=== PATIENT | female | born 1945 | race Hispanic/Latino ===

== ENCOUNTER 2016-07-29 07:11 | Inpatient (IN) | payer MEDICARE ==
--- NOTE | 2016-07-29 08:20 | XRay Report ---
CHEST XRAY, 2 VIEWS: History: Shortness of breath. Findings: There is mild diffuse interstitial coarsening. The lungs are otherwise clear but hyperexpanded. The pleural spaces are clear. The cardiac silhouette and pulmonary vasculature are within normal limits for technique. IMPRESSION: Changes consistent with COPD. No evidence for an acute process.
[2016-07-29 08:53] LABS: Anion Gap 22 mmol/L; Blood Urea Nitrogen 9 mg/dL (7-17); Calcium 9.1 mg/dL (8.4-10.2); Carbon Dioxide 25 mmol/L (22-30); Chloride 97.9 mmol/L (98-107); Glucose 115 mg/dL (65-100); Potassium 3.4 mmol/L (3.6-5.0); Sodium 141 mmol/L (137-145)
[2016-07-29] MEDS ORDERED: NACL 0.9% 1000 ML 1,000 ML IV ONE (09:08)
[2016-07-29] MEDS ORDERED: MAGNESIUM SULFATE 2GM/50ML 50 ML IV ONE (09:08)
[2016-07-29] MEDS ORDERED: ATROVENT IH ONE (09:08)
[2016-07-29] MEDS ORDERED: PROVENTIL IH ONE (09:08)
--- NOTE | 2016-07-29 09:10 | Emergency Department Report ---
ED Shortness of Breath HPI - General Chief Complaint: Upper Respiratory Infection Stated Complaint: AMANDA Time Seen by Provider: 07/29/16 08:52 Source: patient, EMS (ems notes not available at time of chart dictation), RN notes reviewed, old records reviewed Mode of arrival: Stretcher Limitations: Physical Limitation - History of Present Illness Initial Comments: This is a 71-year-old female, whom I have evaluated in the past. Primary care Dr.: Ernie Pulmonology: [facility] : Dr Ramires Past medical history includes hypertension, COPD, hypothyroidism, had a history of perforated ulcer over the summer. She presents to the ER with cough, shortness of breath, wheezing, mucus production, generalized weakness. Her symptoms are constant, and worsening over the past few days. They worse with physical exertion, and decreased with rest. There is no leg pain. There is no leg swelling. No recent trips greater than 4 hours. No recent hospitalizations. patient reports this feels similar to prior episodes of COPD. She reports feeling very weak, and orthopneic. MD Complaint: shortness of breath, cough, chest pain (she admits to mild chest pressure, which developed after her cough.) -: Gradual Consistency: constant Improves With: oxygen, rest, bronchodilators, upright position, medication Worsens With: lying flat, exertion Known History Of: COPD Context: recent URI Associated Symptoms: chest pain, cough, orhopnia - Related Data Home Medications Medication Instructions Recorded Confirmed Last Taken Amlodipine Besylate [Amlodipine 10 mg PO QAM 07/29/16 07/29/16 07/28/16 Besylate] LORazepam [LORazepam] 2 mg PO QHS PRN 07/29/16 07/29/16 07/29/16 Levothyroxine [Synthroid] 100 mcg PO QAM 07/29/16 07/29/16 07/28/16 Pantoprazole Sodium [Protonix] 40 mg PO QAM 07/29/16 07/29/16 07/28/16 Simvastatin [Simvastatin] 20 mg PO QHS 07/29/16 07/29/16 Unknown Previous Rx's Medication Instructions Recorded Last Taken Type Pantoprazole [Protonix TAB] 40 mg PO QDAY #30 tablet 02/23/16 07/29/16 Rx Allergies Allergy/AdvReac Type Severity Reaction Status Date / Time No Known Allergies Allergy Verified 02/04/16 12:01 ED Review of Systems ROS: Stated complaint: AMANDA Other details as noted in HPI Constitutional: malaise. denies: fever Eyes: denies: eye discharge ENT: denies: epistaxis Respiratory: cough, shortness of breath, SOB with exertion, SOB at rest, wheezing Cardiovascular: dyspnea on exertion Gastrointestinal: denies: abdominal pain Genitourinary: as per HPI Musculoskeletal: as per HPI Skin: as per HPI Neurological: weakness Psychiatric: anxiety ED Past Medical Hx - Past Medical History Previous Medical History?: Yes Hx Hypertension: Yes Hx Heart Attack/AMI: No Hx Congestive Heart Failure: No Hx Diabetes: No Hx Deep Vein Thrombosis: No Hx Pulmonary Embolism: No Hx GERD: Yes Hx Liver Disease: No Hx Renal Disease: No Hx Sickle Cell Disease: No Hx Arthritis: No Hx Kidney Stones: No Hx Asthma: No Hx COPD: Yes Hx Tuberculosis: No Hx HIV: No Additional medical history: Hypothyrodism, hx of ulcers. - Surgical History Past Surgical History?: Yes Hx Coronary Stent: No Hx Open Heart Surgery: No Hx Pacemaker: No Hx Internal Defibrillator: No Hx Cholecystectomy: Yes Hx Appendectomy: Yes Hx Breast Surgery: Yes Additional Surgical History: hysterectomy, L ear surgery - Social History Smoking Status: Former Smoker Substance Use Type: None - Medications Home Medications: Home Medications Medication Instructions Recorded Confirmed Last Taken Type Pantoprazole [Protonix TAB] 40 mg PO QDAY #30 tablet 02/23/16 07/29/16 07/29/16 Rx Amlodipine Besylate [Amlodipine 10 mg PO QAM 07/29/16 07/29/16 07/28/16 History Besylate] LORazepam [LORazepam] 2 mg PO QHS PRN 07/29/16 07/29/16 07/29/16 History Levothyroxine [Synthroid] 100 mcg PO QAM 07/29/16 07/29/16 07/28/16 History Pantoprazole Sodium [Protonix] 40 mg PO QAM 07/29/16 07/29/16 07/28/16 History Simvastatin [Simvastatin] 20 mg PO QHS 07/29/16 07/29/16 Unknown History ED Physical Exam - General Limitations: Physical Limitation General appearance: alert, in distress - Head Head exam: Present: atraumatic, normocephalic - Eye Eye exam: Present: normal appearance, EOMI. Absent: nystagmus - ENT ENT exam: Present: mucous membranes dry - Neck Neck exam: Present: normal inspection, full ROM. Absent: tenderness - Respiratory Respiratory exam: Present: respiratory distress, wheezes, rhonchi, accessory muscle use - Cardiovascular Cardiovascular Exam: Present: normal rhythm, tachycardia, normal heart sounds. Absent: bradycardia, systolic murmur, diastolic murmur, rubs, gallop - GI/Abdominal GI/Abdominal exam: Present: soft, normal bowel sounds. Absent: distended, tenderness, guarding, rebound, rigid, pulsatile mass - Extremities Exam Extremities exam: Present: normal inspection, full ROM, normal capillary refill. Absent: tenderness, pedal edema, joint swelling, calf tenderness - Back Exam Back exam: Present: normal inspection, full ROM. Absent: tenderness, CVA tenderness (R), CVA tenderness (L), muscle spasm, paraspinal tenderness, vertebral tenderness - Neurological Exam Neurological exam: Present: alert, oriented X3, other (Extraocular movements intact. Tongue midline. No facial droop. Facial sensation intact to light touch in the V1, V2, V3 distribution bilaterally. 5 and 5 strength in 4 extremities.. Sensation is intact to light touch in 4 extremities.). Absent: motor sensory deficit - Psychiatric Psychiatric exam: Present: anxious - Skin Skin exam: Present: warm, dry, intact, normal color. Absent: rash ED Course Vital Signs 07/29/16 07/29/16 07/29/16 07:33 07:35 07:47 Temperature 98.6 F 98.2 F Pulse Rate 102 H 91 H Pulse Rate [ Anterior Bilateral Throughout] Respiratory 28 H 32 H 28 H Rate Respiratory Rate [Anterior Bilateral Throughout] Blood Pressure 128/72 Blood Pressure 128/72 [Left] O2 Sat by Pulse 97 100 99 Oximetry 07/29/16 07/29/16 07/29/16 09:19 10:25 11:47 Temperature 98.3 F Pulse Rate 90 Pulse Rate [ 87 106 H Anterior Bilateral Throughout] Respiratory 22 Rate Respiratory 28 H 25 H Rate [Anterior Bilateral Throughout] Blood Pressure Blood Pressure 128/53 [Left] O2 Sat by Pulse 99 Oximetry 07/29/16 07/29/16 13:46 14:13 Temperature Pulse Rate Pulse Rate [ 88 102 H Anterior Bilateral Throughout] Respiratory Rate Respiratory 21 20 Rate [Anterior Bilateral Throughout] Blood Pressure Blood Pressure [Left] O2 Sat by Pulse 94 Oximetry - Reevaluation(s) Reevaluation #1: 07/29/16 10:29 Differential diagnosis: COPD, bronchitis, pneumonia, pulmonary embolus, acute coronary syndrome Assessment and plan: 71-year-old female with probable COPD exacerbation. Patient was treated aggressively with albuterol, Atrovent, steroids, magnesium and fluids. She is still wheezing, she is still short of breath. She has significant work of breathing. She will be admitted for further management. I doubt pulmonary embolus. Nevertheless, a CT scan is pending, and patient will remain in the ER pending results. Dr Diaz accepts patient to his service 07/29/16 15:02 Reevaluation #2: 07/29/16 15:02 CAT scan of the chest is negative. ED Medical Decision Making - Lab Data Result diagrams: 07/29/16 08:12 07/29/16 08:12 Vital Signs 07/29/16 07/29/16 07/29/16 07:33 07:47 09:19 Temperature 98.6 F 98.2 F Pulse Rate 102 H 91 H Pulse Rate [ 87 Anterior Bilateral Throughout] Respiratory 28 H 28 H Rate Respiratory 28 H Rate [Anterior Bilateral Throughout] Blood Pressure 128/72 Blood Pressure 128/72 [Left] O2 Sat by Pulse 97 99 Oximetry Lab Results 07/29/16 07/29/16 07/29/16 Range/Units 08:12 08:12 08:12 WBC 9.2 (4.5-11.0) K/mm3 RBC 4.57 (3.65-5.03) M/mm3 Hgb 14.8 H (10.1-14.3) gm/dl Hct 44.3 H (30.3-42.9) % MCV 97 (79-97) fl MCH 32 (28-32) pg MCHC 33 (30-34) % RDW 14.0 (13.2-15.2) % Plt Count 165 (140-440) K/mm3 Lymph % (Auto) 6.4 L (13.4-35.0) % [place] % (Auto) 8.2 H (0.0-7.3) % Eos % (Auto) 2.4 (0.0-4.3) % Baso % (Auto) 0.6 (0.0-1.8) % Lymph # 0.6 L (1.2-5.4) K/mm3 [place] # 0.8 (0.0-0.8) K/mm3 Eos # 0.2 (0.0-0.4) K/mm3 Baso # 0.1 (0.0-0.1) K/mm3 Seg Neutrophils % 82.4 H (40.0-70.0) % Seg Neutrophils # 7.6 (1.8-7.7) K/mm3 PT (12.2-14.9) Sec. INR (0.87-1.13) D-Dimer (0-234) ng/mlDDU Sodium 141 (137-145) mmol/L Potassium 3.4 L (3.6-5.0) mmol/L Chloride 97.9 L (98-107) mmol/L Carbon Dioxide 25 (22-30) mmol/L Anion Gap 22 mmol/L BUN 9 (7-17) mg/dL Creatinine 0.5 L (0.7-1.2) mg/dL Estimated GFR > 60 ml/min BUN/Creatinine Ratio 18.00 % Glucose 115 H (65-100) mg/dL Calcium 9.1 (8.4-10.2) mg/dL Troponin T < 0.010 (0.00-0.029) ng/mL NT-Pro-B Natriuret Pep 91.18 (0-900) pg/mL 07/29/16 Range/Units 09:17 WBC (4.5-11.0) K/mm3 RBC (3.65-5.03) M/mm3 Hgb (10.1-14.3) gm/dl Hct (30.3-42.9) % MCV (79-97) fl MCH (28-32) pg MCHC (30-34) % RDW (13.2-15.2) % Plt Count (140-440) K/mm3 Lymph % (Auto) (13.4-35.0) % [place] % (Auto) (0.0-7.3) % Eos % (Auto) (0.0-4.3) % Baso % (Auto) (0.0-1.8) % Lymph # (1.2-5.4) K/mm3 [place] # (0.0-0.8) K/mm3 Eos # (0.0-0.4) K/mm3 Baso # (0.0-0.1) K/mm3 Seg Neutrophils % (40.0-70.0) % Seg Neutrophils # (1.8-7.7) K/mm3 PT 12.7 (12.2-14.9) Sec. INR 0.96 (0.87-1.13) D-Dimer 234.81 H (0-234) ng/mlDDU Sodium (137-145) mmol/L Potassium (3.6-5.0) mmol/L Chloride (98-107) mmol/L Carbon Dioxide (22-30) mmol/L Anion Gap mmol/L BUN (7-17) mg/dL Creatinine (0.7-1.2) mg/dL Estimated GFR ml/min BUN/Creatinine Ratio % Glucose (65-100) mg/dL Calcium (8.4-10.2) mg/dL Troponin T (0.00-0.029) ng/mL NT-Pro-B Natriuret Pep (0-900) pg/mL - EKG Data 07/29/16 10:31 normal sinus, rbbb, motion atrifcat, qtc prolonged, not c/w stemi appears unchanged from prior 02/05/2016 - Radiology Data Radiology results: report reviewed, image reviewed xr chest shows copd no acute findings CAT scan of the chest negative for pulmonary embolus Critical care attestation.: If time is entered above; I have spent that time in minutes in the direct care of this critically ill patient, excluding procedure time. ED Disposition Clinical Impression: Acute respiratory failure, COPD (chronic obstructive pulmonary disease) Disposition: OP ADMITTED IP TO THIS HOSP Is pt being admited?: Yes Does the pt Need Aspirin: Yes Condition: Fair
[2016-07-29 09:19] LABS: Basophils % (Auto) 0.6 % (0.0-1.8); Eosinophils % (Auto) 2.4 % (0.0-4.3); Hematocrit 44.3 % (30.3-42.9); Hemoglobin 14.8 gm/dl (10.1-14.3); Mean Corpuscular HGB Conc 33 % (30-34); Mean Corpuscular Hemoglobin 32 pg (28-32); Mean Corpuscular Volume 97 fl (79-97); Platelet Count 165 K/mm3 (140-440); Red Blood Count 4.57 M/mm3 (3.65-5.03); White Blood Count 9.2 K/mm3 (4.5-11.0)
[2016-07-29 09:41] LABS: INR 0.96 (0.87-1.13)
[2016-07-29] MEDS ORDERED: BABY ASPIRIN PO ONE (10:33)
--- NOTE | 2016-07-29 10:34 | Admit Criteria Form ---
Admission Criteria Documentation: COPD Clinical Indications for Admission to Inpatient Care (Place 'X' for any and all applicable criteria): Admission is indicated for ANY ONE of the following (1)(2)(3): [ ]I. Acute exacerbation by high-risk comorbidity (e.g., pneumonia, dysrhythmia, heart failure, pleural effusion, pneumothorax) or severe underlying COPD (e.g., steroid dependent) [X ]II. Inpatient admission required rather than observation care (see Chronic Obstructive Pulmonary Disease: Observation Care) because of ANY ONE of the following: [X ]a) New or pre-existing signs or symptoms of COPD (eg, dyspnea or Tachypnea at rest or with minimal activity) that persist despite outpatient and observation care treatment [ ]b) New-onset hypoxemia (room air SaO2 less than 90%, PO2 less than 60 mm Hg (8.0 kPa)) that persists despite outpatient and observation care treatment [ ]c) Worsening of pre-existing hypoxemia (eg, new or increased requirement for supplemental oxygen to maintain oxygenation at baseline level) that persists despite outpatient and observation care treatment, with oxygen treatment needs performable only in acute inpatient setting [ ]d) Hypercarbia (PCO2 greater than 40 mm Hg (5.3 kPa))-induced respiratory acidosis (pH less than 7.35) that persists despite outpatient and observation care treatment [ ]e) Supplemental oxygen or respiratory treatments for over 24 hours that are performable only in acute inpatient setting [ ]f) Chest tube placement with active evacuation (e.g., suction, drainage) (5) [ ]g) Other condition, treatment or monitoring requiring inpatient admission [ ]III. Planned invasive surgical or diagnostic procedures requiring acute- care hospitalization [ ]IV. Acute respiratory failure (e.g., uncompensated hypercarbia, severe hypoxemia) [ ]V. Severe comorbid condition (e.g., severe steroid myopathy, acute vertebral fracture) that has acutely worsened pulmonary function [ ]. Confusion state, lethargy, obtundation, stupor or coma Extended stay beyond goal length of stay may be needed for (31)(32): [ ]a ) Respiratory Failure. [ ]b) Severe or persisting hypoxemia or hypercarbia [ ]c) Severe or persistent dyspnea [ ]d) Comorbidities (e.g. chronic heart failure, atrial fibrillation with rapid response, pneumonia) [ ]e) Malnutrition The original [facility] content created by [employer] [facility] has been revised. The portions of the content which have been revised are identified through the use of italic text or in bold, and [employer] [facility] has neither reviewed nor approved the modified material. All other unmodified content is copyright [facility]. Please see references footnoted in the original [facility] edition 2016 Admission Criteria Met: Yes
[2016-07-29] MEDS ORDERED: NACL ONE (10:40)
--- NOTE | 2016-07-29 11:03 | Cat Scan Report ---
CTA chest: Transverse images are obtained through the chest using pulmonary embolus protocol. Coronal and sagittal 2-D as well as a 3-D reformatted images are included. Comparison is made to prior examination of February 04, 2016. The pulmonary vessels as well as the cardiac chambers and thoracic aorta are well-opacified. No filling defects in the pulmonary vessels or cardiac chambers identified. The thoracic aorta is normal in size and contour. The right thyroid lobe is heterogeneous and enlarged. There is no hilar or mediastinal adenopathy. Central airways are patent. No pulmonary nodules, infiltrates, or effusions identified. The pleural surfaces are smooth. The above findings are unchanged compared to prior study. Impression: 1. No evidence of pulmonary embolus. 2. No significant pulmonary abnormalities. 3. Enlarged, heterogeneous right thyroid lobe.
--- NOTE | 2016-07-29 11:39 | History and Physical Report ---
History of Present Illness Chief complaint: sob History of present illness: 71F with pmh of COPD who presents with SOB, wheezing, cough, sputum production and progressive weakness for 4 days, this is consistent with her typical exacerbation with COPD. denies Fever, states that symptoms were gradual and did not occur acutely. Denies CP or pedal edema, complaining of congestion that did not clear despite using nebulizer and using humidifier Past History Past Medical History: GERD, hypertension, hyperlipidemia, other (COPD, hypothyroidism, malnutrition, tobacco abuse, Peptic ulcer disease) Past Surgical History: hysterectomy, hernia repair, Other (ex lap, cholecystectomy, ear repair x2, partical colectomy) Social history: smoking (former) Family history: hypertension Medications and Allergies Allergies Allergy/AdvReac Type Severity Reaction Status Date / Time No Known Allergies Allergy Verified 02/04/16 12:01 Home Medications Medication Instructions Recorded Confirmed Last Taken Type Pantoprazole [Protonix TAB] 40 mg PO QDAY #30 tablet 02/23/16 07/29/16 07/29/16 Rx Amlodipine Besylate [Amlodipine 10 mg PO QAM 07/29/16 07/29/16 07/28/16 History Besylate] LORazepam [LORazepam] 2 mg PO QHS PRN 07/29/16 07/29/16 07/29/16 History Levothyroxine [Synthroid] 100 mcg PO QAM 07/29/16 07/29/16 07/28/16 History Pantoprazole Sodium [Protonix] 40 mg PO QAM 07/29/16 07/29/16 07/28/16 History Simvastatin [Simvastatin] 20 mg PO QHS 07/29/16 07/29/16 Unknown History Review of Systems All systems: negative Constitutional: fatigue, weakness Cardiovascular: no chest pain Respiratory: cough, cough with sputum, shortness of breath, dyspnea on exertion , wheezing Exam - Constitutional Vitals: Temp Pulse Resp BP Pulse Ox 98.2 F 106 H 25 H 128/72 99 07/29/16 07:47 07/29/16 10:25 07/29/16 10:25 07/29/16 07:47 07/29/16 07:47 General appearance: Present: mild distress, well-nourished - EENT Eyes: Present: PERRL ENT: hearing intact, clear oral mucosa - Neck Neck: Present: supple, normal ROM - Respiratory Respiratory effort: normal Respiratory: bilateral: diminished, wheezing - Cardiovascular Heart Sounds: Present: S1 & S2. Absent: rub, click - Extremities Extremities: pulses symmetrical, No edema Peripheral Pulses: within normal limits - Abdominal General gastrointestinal: Present: soft, non-tender, non-distended, normal bowel sounds Female genitourinary: Present: normal - Integumentary Integumentary: Present: clear, warm, dry - Musculoskeletal Musculoskeletal: gait normal, strength equal bilaterally - Psychiatric Psychiatric: appropriate mood/affect, intact judgment & insight - Neurologic Neurologic: CNII-XII intact, moves all extremities Results - Labs CBC & Chem 7: 07/29/16 08:12 07/29/16 08:12 Labs: Laboratory Last Values WBC 9.2 K/mm3 (4.5-11.0) 07/29/16 08:12 RBC 4.57 M/mm3 (3.65-5.03) 07/29/16 08:12 Hgb 14.8 gm/dl (10.1-14.3) H 07/29/16 08:12 Hct 44.3 % (30.3-42.9) H 07/29/16 08:12 MCV 97 fl (79-97) 07/29/16 08:12 MCH 32 pg (28-32) 07/29/16 08:12 MCHC 33 % (30-34) 07/29/16 08:12 RDW 14.0 % (13.2-15.2) 07/29/16 08:12 Plt Count 165 K/mm3 (140-440) 07/29/16 08:12 Lymph % (Auto) 6.4 % (13.4-35.0) L 07/29/16 08:12 [place] % (Auto) 8.2 % (0.0-7.3) H 07/29/16 08:12 Eos % (Auto) 2.4 % (0.0-4.3) 07/29/16 08:12 Baso % (Auto) 0.6 % (0.0-1.8) 07/29/16 08:12 Lymph # 0.6 K/mm3 (1.2-5.4) L 07/29/16 08:12 [place] # 0.8 K/mm3 (0.0-0.8) 07/29/16 08:12 Eos # 0.2 K/mm3 (0.0-0.4) 07/29/16 08:12 Baso # 0.1 K/mm3 (0.0-0.1) 07/29/16 08:12 Seg Neutrophils % 82.4 % (40.0-70.0) H 07/29/16 08:12 Seg Neutrophils # 7.6 K/mm3 (1.8-7.7) 07/29/16 08:12 PT 12.7 Sec. (12.2-14.9) 07/29/16 09:17 INR 0.96 (0.87-1.13) 07/29/16 09:17 D-Dimer 234.81 ng/mlDDU (0-234) H 07/29/16 09:17 Sodium 141 mmol/L (137-145) 07/29/16 08:12 Potassium 3.4 mmol/L (3.6-5.0) L 07/29/16 08:12 Chloride 97.9 mmol/L (98-107) L 07/29/16 08:12 Carbon Dioxide 25 mmol/L (22-30) 07/29/16 08:12 Anion Gap 22 mmol/L 07/29/16 08:12 BUN 9 mg/dL (7-17) 07/29/16 08:12 Creatinine 0.5 mg/dL (0.7-1.2) L 07/29/16 08:12 Estimated GFR > 60 ml/min 07/29/16 08:12 BUN/Creatinine Ratio 18.00 % 07/29/16 08:12 Glucose 115 mg/dL (65-100) H 07/29/16 08:12 Calcium 9.1 mg/dL (8.4-10.2) 07/29/16 08:12 Troponin T < 0.010 ng/mL (0.00-0.029) 07/29/16 08:12 NT-Pro-B Natriuret Pep 91.18 pg/mL (0-900) 07/29/16 08:12 - Imaging and Cardiology Chest x-ray: image reviewed (no acute process) CT scan - chest: image reviewed (no pulmonary embolus) Assessment and Plan Assessment and plan: 1. COPD exacerbation Steroids, nebs, abx, supplement oxygen and chest PT 2. Hypothyroidism continue synthroid 3. HTN continue home meds 4. PUD continue PPI 5. Malnutrition -asian studies professor consult -encourage improved diet
[2016-07-29] MEDS: LEVAQUIN 750MG/150ML 150 ML IV SCH (12:23)
[2016-07-29] MEDS ORDERED: MILK OF MAGNESIA PO PRN (13:00)
[2016-07-29] MEDS ORDERED: DULCOLAX PR PRN (13:00)
[2016-07-29] MEDS ORDERED: HABITROL TD PRN (13:00)
[2016-07-29] MEDS: DUONEB 0.5 MG-3 MG/3 ML SOLN IH SCH ×2 (13:52→20:11)
[2016-07-29] MEDS: TESSALON PERLES PO SCH ×2 (17:39→22:33)
[2016-07-29] MEDS: TYLENOL PO PRN (17:40)
[2016-07-29] MEDS: ZOCOR PO SCH (22:34)
[2016-07-30] MEDS: DUONEB 0.5 MG-3 MG/3 ML SOLN IH SCH ×4 (02:30→21:00)
[2016-07-30] MEDS: ATIVAN PO PRN ×2 (02:36→22:30)
[2016-07-30] MEDS: ROBITUSSIN AC PO PRN (02:36)
[2016-07-30] MEDS: TYLENOL PO PRN (02:56)
[2016-07-30] MEDS: SYNTHROID PO SCH (05:33)
[2016-07-30] MEDS: TESSALON PERLES PO SCH ×3 (05:34→22:19)
[2016-07-30 09:31] LABS: Blood Urea Nitrogen 10 mg/dL (7-17); Calcium 8.6 mg/dL (8.4-10.2); Carbon Dioxide 26 mmol/L (22-30); Glucose 146 mg/dL (65-100)
[2016-07-30 09:32] LABS: Anion Gap 16 mmol/L; Chloride 102.9 mmol/L (98-107); Potassium 3.7 mmol/L (3.6-5.0); Sodium 141 mmol/L (137-145)
--- NOTE | 2016-07-30 11:21 | Progress Note ---
Assessment and Plan Assessment and plan: 1. COPD exacerbation Steroids, nebs, abx, supplement oxygen and chest PT 2. Hypothyroidism continue synthroid, fup T4 3. HTN continue home meds 4. PUD continue PPI 5. Malnutrition -train station server consult -encourage improved diet History Interval history: cough, wheezing, and SOB is improved Hospitalist Physical - Physical exam Narrative exam: General: Patient appears well in no distress, very thin HEENT: MMM, EOMI cardiac: S1-S2 heard lungs: expiratory wheezing, noted abdomen: soft, nontender, nondistended bowel sounds positive extremities: no edema clubbing or cyanosis Skin: no rash or lesion Neuro: no focal deficit Psych: appropriate behavior and mood, cognition intact - Constitutional Vitals: Temp Pulse Resp BP Pulse Ox 98.3 F 104 H 16 117/65 95 07/30/16 08:00 07/30/16 09:03 07/30/16 09:03 07/30/16 08:00 07/30/16 08:00 General appearance: Present: mild distress, well-nourished Results - Labs CBC & Chem 7: 07/29/16 08:12 07/30/16 07:56 Labs: Laboratory Last Values WBC 9.2 K/mm3 (4.5-11.0) 07/29/16 08:12 RBC 4.57 M/mm3 (3.65-5.03) 07/29/16 08:12 Hgb 14.8 gm/dl (10.1-14.3) H 07/29/16 08:12 Hct 44.3 % (30.3-42.9) H 07/29/16 08:12 MCV 97 fl (79-97) 07/29/16 08:12 MCH 32 pg (28-32) 07/29/16 08:12 MCHC 33 % (30-34) 07/29/16 08:12 RDW 14.0 % (13.2-15.2) 07/29/16 08:12 Plt Count 165 K/mm3 (140-440) 07/29/16 08:12 Lymph % (Auto) 6.4 % (13.4-35.0) L 07/29/16 08:12 [place] % (Auto) 8.2 % (0.0-7.3) H 07/29/16 08:12 Eos % (Auto) 2.4 % (0.0-4.3) 07/29/16 08:12 Baso % (Auto) 0.6 % (0.0-1.8) 07/29/16 08:12 Lymph # 0.6 K/mm3 (1.2-5.4) L 07/29/16 08:12 [place] # 0.8 K/mm3 (0.0-0.8) 07/29/16 08:12 Eos # 0.2 K/mm3 (0.0-0.4) 07/29/16 08:12 Baso # 0.1 K/mm3 (0.0-0.1) 07/29/16 08:12 Seg Neutrophils % 82.4 % (40.0-70.0) H 07/29/16 08:12 Seg Neutrophils # 7.6 K/mm3 (1.8-7.7) 07/29/16 08:12 PT 12.7 Sec. (12.2-14.9) 07/29/16 09:17 INR 0.96 (0.87-1.13) 07/29/16 09:17 D-Dimer 234.81 ng/mlDDU (0-234) H 07/29/16 09:17 Sodium 141 mmol/L (137-145) 07/30/16 07:56 Potassium 3.7 mmol/L (3.6-5.0) 07/30/16 07:56 Chloride 102.9 mmol/L (98-107) 07/30/16 07:56 Carbon Dioxide 26 mmol/L (22-30) 07/30/16 07:56 Anion Gap 16 mmol/L 07/30/16 07:56 BUN 10 mg/dL (7-17) 07/30/16 07:56 Creatinine 0.4 mg/dL (0.7-1.2) L 07/30/16 07:56 Estimated GFR > 60 ml/min 07/30/16 07:56 BUN/Creatinine Ratio 25.00 % 07/30/16 07:56 Glucose 146 mg/dL (65-100) H 07/30/16 07:56 Calcium 8.6 mg/dL (8.4-10.2) 07/30/16 07:56 Troponin T < 0.010 ng/mL (0.00-0.029) 07/29/16 08:12 NT-Pro-B Natriuret Pep 91.18 pg/mL (0-900) 07/29/16 08:12 TSH 0.016 mlU/mL (0.270-4.200) L 07/30/16 07:56
[2016-07-30] MEDS: PROTONIX PO SCH (12:25)
[2016-07-30] MEDS: LOVENOX SUB-Q SCH (12:25)
[2016-07-30] MEDS: NORVASC PO SCH (12:25)
[2016-07-30] MEDS: LEVAQUIN 750MG/150ML 150 ML IV SCH (13:00)
[2016-07-30] MEDS: PERCOCET 5/325 PO PRN ×2 (15:05→22:28)
[2016-07-30] MEDS ORDERED: NACL ONE (18:09)
[2016-07-30] MEDS: ZOFRAN IV PRN (18:39)
[2016-07-30] MEDS: ZOCOR PO SCH (22:19)
[2016-07-31] MEDS: DUONEB 0.5 MG-3 MG/3 ML SOLN IH SCH ×4 (02:53→20:34)
[2016-07-31] MEDS: PERCOCET 5/325 PO PRN ×2 (07:00→23:25)
[2016-07-31] MEDS: SYNTHROID PO SCH (07:00)
[2016-07-31] MEDS: TESSALON PERLES PO SCH ×3 (07:01→23:17)
[2016-07-31] MEDS: ZOFRAN IV PRN (10:04)
[2016-07-31] MEDS: PROTONIX PO SCH (10:07)
[2016-07-31] MEDS: NORVASC PO SCH (10:07)
[2016-07-31] MEDS: LOVENOX SUB-Q SCH (10:13)
--- NOTE | 2016-07-31 13:05 | Progress Note ---
Assessment and Plan Assessment and plan: COPD exacerbation - Steroids, nebs, abx, supplement oxygen and chest PT - Getting better Patient complains dysphagia - Neck CT was done pending the reading - Speech therapy evaluation - Barium swallow evaluation Hypothyroidism - continue synthroid, fup T4 HTN - continue home meds PUD - continue PPI Malnutrition -patient access representative consult -encourage improved diet Disposition Plan: continue inpatient care History Interval history: Patient said shortness of breath is getting better. She complained of dysphagia and nausea and vomiting. Hospitalist Physical - Physical exam Narrative exam: Not in cardiopulmonary distress. The patient appeared well nourished and normally developed. Vital signs as documented. Head exam is unremarkable. No scleral icterus . Neck is without jugular venous distension, thyromegaly, or carotid bruits. Lungs are clear to auscultation. Cardiac exam reveals regular rate and Rhythm. First and second heart sounds normal. No murmurs, rubs or gallops. Abdominal exam reveals normal bowel sounds, no masses, no organomegaly and no aortic enlargement. Extremities are nonedematous and both femoral and pedal pulses are normal. 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 No focal weakness. - Constitutional Vitals: Temp Pulse Resp BP Pulse Ox 97.6 F 80 18 117/59 96 07/31/16 07:37 07/31/16 10:07 07/31/16 08:00 07/31/16 10:07 07/31/16 08:34 General appearance: Present: mild distress, well-nourished Results - Labs CBC & Chem 7: 07/29/16 08:12 07/30/16 07:56 Labs: Laboratory Last Values WBC 9.2 K/mm3 (4.5-11.0) 07/29/16 08:12 RBC 4.57 M/mm3 (3.65-5.03) 07/29/16 08:12 Hgb 14.8 gm/dl (10.1-14.3) H 07/29/16 08:12 Hct 44.3 % (30.3-42.9) H 07/29/16 08:12 MCV 97 fl (79-97) 07/29/16 08:12 MCH 32 pg (28-32) 07/29/16 08:12 MCHC 33 % (30-34) 07/29/16 08:12 RDW 14.0 % (13.2-15.2) 07/29/16 08:12 Plt Count 165 K/mm3 (140-440) 07/29/16 08:12 Lymph % (Auto) 6.4 % (13.4-35.0) L 07/29/16 08:12 [place] % (Auto) 8.2 % (0.0-7.3) H 07/29/16 08:12 Eos % (Auto) 2.4 % (0.0-4.3) 07/29/16 08:12 Baso % (Auto) 0.6 % (0.0-1.8) 07/29/16 08:12 Lymph # 0.6 K/mm3 (1.2-5.4) L 07/29/16 08:12 [place] # 0.8 K/mm3 (0.0-0.8) 07/29/16 08:12 Eos # 0.2 K/mm3 (0.0-0.4) 07/29/16 08:12 Baso # 0.1 K/mm3 (0.0-0.1) 07/29/16 08:12 Seg Neutrophils % 82.4 % (40.0-70.0) H 07/29/16 08:12 Seg Neutrophils # 7.6 K/mm3 (1.8-7.7) 07/29/16 08:12 PT 12.7 Sec. (12.2-14.9) 07/29/16 09:17 INR 0.96 (0.87-1.13) 07/29/16 09:17 D-Dimer 234.81 ng/mlDDU (0-234) H 07/29/16 09:17 Sodium 141 mmol/L (137-145) 07/30/16 07:56 Potassium 3.7 mmol/L (3.6-5.0) 07/30/16 07:56 Chloride 102.9 mmol/L (98-107) 07/30/16 07:56 Carbon Dioxide 26 mmol/L (22-30) 07/30/16 07:56 Anion Gap 16 mmol/L 07/30/16 07:56 BUN 10 mg/dL (7-17) 07/30/16 07:56 Creatinine 0.4 mg/dL (0.7-1.2) L 07/30/16 07:56 Estimated GFR > 60 ml/min 07/30/16 07:56 BUN/Creatinine Ratio 25.00 % 07/30/16 07:56 Glucose 146 mg/dL (65-100) H 07/30/16 07:56 Calcium 8.6 mg/dL (8.4-10.2) 07/30/16 07:56 Troponin T < 0.010 ng/mL (0.00-0.029) 07/29/16 08:12 NT-Pro-B Natriuret Pep 91.18 pg/mL (0-900) 07/29/16 08:12 TSH 0.016 mlU/mL (0.270-4.200) L 07/30/16 07:56 Thyroxine (T4) 8.6 ug/dL (4.0-12.0) 07/30/16 07:56
[2016-07-31] MEDS: LEVAQUIN 750MG/150ML 150 ML IV SCH (15:02)
[2016-07-31] MEDS: ZOCOR PO SCH (23:16)
[2016-08-01] MEDS: DUONEB 0.5 MG-3 MG/3 ML SOLN IH SCH ×4 (03:21→20:12)
[2016-08-01] MEDS: SYNTHROID PO SCH (05:23)
[2016-08-01] MEDS: TESSALON PERLES PO SCH ×3 (05:24→21:06)
[2016-08-01] MEDS: ROBITUSSIN AC PO PRN ×2 (05:30→14:50)
[2016-08-01] MEDS: PERCOCET 5/325 PO PRN ×3 (08:00→21:06)
--- NOTE | 2016-08-01 08:27 | Gastroenterology Consultation ---
History of Present Illness - Reason for Consult Consult date: 08/01/16 difficulty swallowing - History of Present Illness Ms Spaulding is a 71 yo female with h/o COPD, GERD, multiple prior abdominal surgeries who presents with COPD exacerbation. She reports improvement in breathing since admission. However, she has had coughing spells when swallowing liquids and solids as soon as initiating swallow. She has had chronic issues of of similar symptoms with swallowing, but this has been worse for the past 1 week. She has reflux sx's, and reports having previous EGD's over 2 years ago with "stretching" of esophagus. She has chronic abd pain since her surgeries which is unchanged. Denies NSAIDs, GI bleeding, or change in bowel habits. Past History Past Medical History: GERD, hypertension, hyperlipidemia, other (COPD, hypothyroidism, malnutrition, tobacco abuse, Peptic ulcer disease) Past Surgical History: hysterectomy, hernia repair, Other (ex lap, cholecystectomy, ear repair x2, partical colectomy) Social history: smoking (former) Family history: hypertension Medications and Allergies Allergies Allergy/AdvReac Type Severity Reaction Status Date / Time No Known Allergies Allergy Verified 02/04/16 12:01 Home Medications Medication Instructions Recorded Confirmed Last Taken Type Pantoprazole [Protonix TAB] 40 mg PO QDAY #30 tablet 02/23/16 07/29/16 07/29/16 Rx Amlodipine Besylate [Amlodipine 10 mg PO QAM 07/29/16 07/29/16 07/28/16 History Besylate] LORazepam [LORazepam] 2 mg PO QHS PRN 07/29/16 07/29/16 07/29/16 History Levothyroxine [Synthroid] 100 mcg PO QAM 07/29/16 07/29/16 07/28/16 History Pantoprazole Sodium [Protonix] 40 mg PO QAM 07/29/16 07/29/16 07/28/16 History Simvastatin [Simvastatin] 20 mg PO QHS 07/29/16 07/29/16 Unknown History Active Meds: Active Medications Acetaminophen (Tylenol) 650 mg PO Q4H PRN PRN Reason: Pain MILD(1-3)/Fever >100.5/GARNER Last Admin: 07/30/16 02:56 Dose: 650 mg Albuterol/Ipratropium (Duoneb 0.5 Mg-3 Mg/3 Ml Soln) 1 ampul IH Q6HRT [facility] Last Admin: 08/01/16 08:09 Dose: 1 ampul Amlodipine Besylate (Norvasc) 10 mg PO QAM [facility] Last Admin: 07/31/16 10:07 Dose: 10 mg Benzonatate (Tessalon Perles) 100 mg PO Q8HR [facility] Last Admin: 08/01/16 05:24 Dose: 100 mg Bisacodyl (Dulcolax) 10 mg VA QDAY PRN PRN Reason: Constipation unrelieved by MOM Enoxaparin Sodium (Lovenox) 40 mg SUB-Q QDAY [facility] Last Admin: 07/31/16 10:13 Dose: 40 mg Levofloxacin/Dextrose (Levaquin 750mg/150ml) 150 mls @ 100 mls/hr IV Q24H [facility] Last Admin: 07/31/16 15:02 Dose: 100 mls/hr Levothyroxine Sodium (Synthroid) 100 mcg PO DAILY@0600 [facility] Last Admin: 08/01/16 05:23 Dose: 100 mcg Lorazepam (Ativan) 2 mg PO QHS PRN PRN Reason: Sleep Last Admin: 07/30/16 22:30 Dose: 2 mg Magnesium Hydroxide (Milk Of Magnesia) 30 ml PO Q4H PRN PRN Reason: Constipation Methylprednisolone Sodium Succinate (Solu-Medrol) 40 mg IV Q8HR [facility] Last Admin: 08/01/16 05:23 Dose: 40 mg Ondansetron HCl (Zofran) 4 mg IV Q8H PRN PRN Reason: N/V unrelieved by Reglan Last Admin: 07/31/16 10:04 Dose: 4 mg Oxycodone/Acetaminophen (Percocet 5/325) 2 tab PO Q6H PRN PRN Reason: Pain, Moderate (4-6) Last Admin: 08/01/16 08:00 Dose: 2 tab Pantoprazole Sodium (Protonix) 40 mg PO QDAY [facility] Last Admin: 07/31/16 10:07 Dose: 40 mg Pseudoephedrine/Acetam/Chlorphenir (Robitussin Ac) 10 ml PO Q4H PRN PRN Reason: Cough Last Admin: 08/01/16 05:30 Dose: 10 ml Simvastatin (Zocor) 20 mg PO QHS [facility] Last Admin: 07/31/16 23:16 Dose: 20 mg Review of Systems - Review of Systems All systems: negative Constitutional: fatigue, weakness Cardiovascular: shortness of breath Exam - Exam Narrative Exam: Gen: NAD, resting comfortably Head: nc/at Ears: external ear canals appear normal Neck: no JVD/LAD Mouth: mmm Lungs: non-labored, + wheezing Abd: soft, mild right sided ttp, no rebound/guarding, nd, +bs Ext: no edema Neuro: oriented x 3 Psych: appropriate mood and affect - Constitutional Vital Signs: Temp Pulse Resp BP Pulse Ox 97.8 F 96 H 18 131/65 94 08/01/16 01:45 08/01/16 08:11 08/01/16 08:11 08/01/16 01:45 08/01/16 01:45 - Labs CBC & Chem 7: 07/29/16 08:12 07/30/16 07:56 Assessment and Plan 1. Difficulty swallowing - symptoms suggestive of oropharyngeal dysphagia given immediate coughing spells following swallowing of liquids and solids. She does report h/o reflux and prior esophageal dilatation over 2 years ago, however unclear if her symptoms are related to mechanical esophageal etiology. Recommend Barium swallow study/esophagram, and speech evaluation. Cont PPI. 2. COPD exacerbation - breathing improved, management per primary team
[2016-08-01 09:20] LABS: Hematocrit 40.8 % (30.3-42.9); Hemoglobin 13.6 gm/dl (10.1-14.3); Mean Corpuscular HGB Conc 33 % (30-34); Mean Corpuscular Hemoglobin 32 pg (28-32); Mean Corpuscular Volume 97 fl (79-97); Platelet Count 177 K/mm3 (140-440); Red Blood Count 4.21 M/mm3 (3.65-5.03); Red Cell Distribution Width 13.9 % (13.2-15.2); White Blood Count 8.6 K/mm3 (4.5-11.0)
[2016-08-01] MEDS: NORVASC PO SCH (09:28)
[2016-08-01] MEDS: PROTONIX PO SCH (09:28)
[2016-08-01 09:29] LABS: Anion Gap 16 mmol/L; Blood Urea Nitrogen 14 mg/dL (7-17); Calcium 8.7 mg/dL (8.4-10.2); Carbon Dioxide 30 mmol/L (22-30); Chloride 98.8 mmol/L (98-107); Glucose 136 mg/dL (65-100); Potassium 4.2 mmol/L (3.6-5.0); Sodium 141 mmol/L (137-145)
[2016-08-01] MEDS: LOVENOX SUB-Q SCH (09:29)
--- NOTE | 2016-08-01 10:03 | Progress Note ---
Assessment and Plan Assessment and plan: --Oropharyngeal dysphagia Status post modified barium swallow, speech recommended mechanical soft diet as tolerated GI following --Acute exacerbation of COPD/in terms slightly improved Continue oxygen titrated to O2 sats more than 90%, nebulizers IV steroids,Empiric antibiotics --Peptic ulcer disease; continue proton pump inhibitors And supportive care --Hypertension; moderate control Continue current antihypertensives and when necessary medications --History of hypothyroidism; on Synthroid Since TSH is very low, probably overcorrection, will hold Synthroid and closely monitor --Moderate malnutrition Dietary supplements and nutrition consult --DVT prophylaxis with Lovenox DC planning. Case management EI consult and recommendations noted and appreciated History Interval history: Patient seen and evaluated in her room this morning medical records reviewed Patient feels slightly better, barium swallow evaluated by speech therapist recommended mechanical soft diet as tolerated She denies nausea vomiting or abdominal pain Alert awake oriented 3 not in acute distress Vital signs reviewed, stable Hospitalist Physical - Constitutional Vitals: Temp Pulse Resp BP Pulse Ox 98.2 F 68 18 124/69 94 08/01/16 08:27 08/01/16 09:28 08/01/16 08:27 08/01/16 09:28 08/01/16 08:27 General appearance: Present: no acute distress, cachectic, disheveled - EENT Eyes: Present: PERRL, EOM intact - Neck Neck: Present: supple, normal ROM - Respiratory Respiratory effort: normal Respiratory: negative: rales, rhonchi, wheezing - Cardiovascular Rhythm: regular Heart Sounds: Present: S1 & S2 - Extremities Extremities: no ischemia, pulses intact, pulses symmetrical Peripheral Pulses: within normal limits - Abdominal General gastrointestinal: soft, non-tender, non-distended, normal bowel sounds - Integumentary Integumentary: Present: clear, warm - Psychiatric Psychiatric: appropriate mood/affect, cooperative - Neurologic Neurologic: CNII-XII intact, moves all extremities Results - Labs CBC & Chem 7: 08/01/16 08:47 08/01/16 08:54 Labs: Laboratory Last Values WBC 8.6 K/mm3 (4.5-11.0) 08/01/16 08:47 RBC 4.21 M/mm3 (3.65-5.03) 08/01/16 08:47 Hgb 13.6 gm/dl (10.1-14.3) 08/01/16 08:47 Hct 40.8 % (30.3-42.9) 08/01/16 08:47 MCV 97 fl (79-97) 08/01/16 08:47 MCH 32 pg (28-32) 08/01/16 08:47 MCHC 33 % (30-34) 08/01/16 08:47 RDW 13.9 % (13.2-15.2) 08/01/16 08:47 Plt Count 177 K/mm3 (140-440) 08/01/16 08:47 Lymph % (Auto) 6.4 % (13.4-35.0) L 07/29/16 08:12 [place] % (Auto) 8.2 % (0.0-7.3) H 07/29/16 08:12 Eos % (Auto) 2.4 % (0.0-4.3) 07/29/16 08:12 Baso % (Auto) 0.6 % (0.0-1.8) 07/29/16 08:12 Lymph # 0.6 K/mm3 (1.2-5.4) L 07/29/16 08:12 [place] # 0.8 K/mm3 (0.0-0.8) 07/29/16 08:12 Eos # 0.2 K/mm3 (0.0-0.4) 07/29/16 08:12 Baso # 0.1 K/mm3 (0.0-0.1) 07/29/16 08:12 Seg Neutrophils % Ophthalmology Technician 08/01/16 08:47 Seg Neutrophils # 7.6 K/mm3 (1.8-7.7) 07/29/16 08:12 PT 12.7 Sec. (12.2-14.9) 07/29/16 09:17 INR 0.96 (0.87-1.13) 07/29/16 09:17 D-Dimer 234.81 ng/mlDDU (0-234) H 07/29/16 09:17 Sodium 141 mmol/L (137-145) 08/01/16 08:54 Potassium 4.2 mmol/L (3.6-5.0) 08/01/16 08:54 Chloride 98.8 mmol/L (98-107) 08/01/16 08:54 Carbon Dioxide 30 mmol/L (22-30) 08/01/16 08:54 Anion Gap 16 mmol/L 08/01/16 08:54 BUN 14 mg/dL (7-17) 08/01/16 08:54 Creatinine 0.4 mg/dL (0.7-1.2) L 08/01/16 08:54 Estimated GFR > 60 ml/min 08/01/16 08:54 BUN/Creatinine Ratio 35.00 % 08/01/16 08:54 Glucose 136 mg/dL (65-100) H 08/01/16 08:54 Calcium 8.7 mg/dL (8.4-10.2) 08/01/16 08:54 Troponin T < 0.010 ng/mL (0.00-0.029) 07/29/16 08:12 NT-Pro-B Natriuret Pep 91.18 pg/mL (0-900) 07/29/16 08:12 TSH 0.016 mlU/mL (0.270-4.200) L 07/30/16 07:56 Thyroxine (T4) 8.6 ug/dL (4.0-12.0) 07/30/16 07:56
[2016-08-01 10:06] LABS: Basophils % (Manual) 0 % (0.0-1.8); Blastocytes % (Manual) 0 %; Eosinophils % (Manual) 0 % (0.0-4.3)
[2016-08-01 10:07] LABS: Anisocytosis Few; Diff Status Complete
--- NOTE | 2016-08-01 11:45 | Fluoroscopy Report ---
Modified barium swallow: The patient was given multiple consistencies of opaque material by speech therapy. Imaging of the patient in the sitting lateral projection show no evidence of penetration or aspiration.
[2016-08-01] MEDS: LEVAQUIN PO SCH (12:06)
[2016-08-01] MEDS: ZOFRAN IV PRN (12:10)
[2016-08-01] MEDS: ZOCOR PO SCH (21:06)
[2016-08-01] MEDS: ATIVAN PO PRN (21:06)
[2016-08-02] MEDS: SYNTHROID PO SCH (07:04)
[2016-08-02] MEDS: PERCOCET 5/325 PO PRN ×2 (07:04→15:20)
[2016-08-02] MEDS: TESSALON PERLES PO SCH ×3 (07:08→23:27)
[2016-08-02] MEDS: DUONEB 0.5 MG-3 MG/3 ML SOLN IH SCH ×3 (10:37→21:58)
[2016-08-02] MEDS: LEVAQUIN PO SCH (11:11)
[2016-08-02] MEDS: NORVASC PO SCH (11:11)
[2016-08-02] MEDS: PROTONIX PO SCH (11:12)
[2016-08-02] MEDS: LOVENOX SUB-Q SCH (11:12)
--- NOTE | 2016-08-02 14:47 | Gastroenterology Progress Note ---
<TJ ELY - Last Filed: 08/02/16 14:51> Assessment and Plan 1. Dysphagia -S/P MBS with no evidence of aspiration , patient also passed swallow eval. She reports she still has the sensation of "something sticking in my throat" -She reports these are similar symptoms she was having at the time of previous dilation several years ago. -She has been seen by [facility]RISTA and Dr. Richards in the past with multiple endoscopies finding pyloric channel and duodenal ulcers as well as erosive esophagitis and gastritis. She has been dilated several times in the past. She denies NSAID use. 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 No active ulcers were seen or stenosis. She is s/p hemicolectomy and CCY in 2014. 2. COPD exacerbation - breathing improved, management per primary team -NPO after MN for tentative EGD tommorrow. If EGD non-revealing may consider esophageal motility studies. Subjective Date of service: 08/02/16 Interval history: No acute changes overnight, S/P MBS, family at bedside. Objective - Constitutional Vitals: Temp Pulse Resp BP Pulse Ox 97.9 F 86 16 128/72 96 08/02/16 08:00 08/02/16 13:32 08/02/16 13:32 08/02/16 11:11 08/02/16 10:40 General appearance: no acute distress - EENT Eyes: EOM intact ENT: hearing intact - Neck Neck: supple - Respiratory Respiratory: bilateral: rhonchi, wheezing - Cardiovascular Rhythm: regular Heart Sounds: Present: S1 & S2 - Gastrointestinal General gastrointestinal: Present: soft, normal bowel sounds, other (midline scarring from previous surgery) - Integumentary Integumentary: Present: warm, dry - Labs CBC & Chem 7: 08/01/16 08:47 08/01/16 08:54 <TARI GARBER - Last Filed: 08/02/16 17:57> Assessment and Plan Pt seen and examined. Concerned that she needs repeat dilation, as she was last dilated 4 yrs ago. Complains of dysphagia to solids > liquids. Will plan on EGD tomorrow, with dilation possible. Subjective Date of service: 08/02/16 Objective - Constitutional Vitals: Temp Pulse Resp BP Pulse Ox 98.2 F 100 H 18 130/80 96 08/02/16 16:00 08/02/16 16:00 08/02/16 16:00 08/02/16 16:00 08/02/16 10:40 - Labs CBC & Chem 7: 08/01/16 08:47 08/01/16 08:54
--- NOTE | 2016-08-02 16:47 | Progress Note ---
Assessment and Plan Assessment and plan: --Oropharyngeal dysphagia GI evaluation noted and appreciated, possible EGD tomorrow Status post modified barium swallow, tolerating mechanical soft diet --Acute exacerbation of COPD/in terms slightly improved Continue oxygen titrated to O2 sats more than 90%, nebulizers IV steroids,Empiric antibiotics --Peptic ulcer disease; continue proton pump inhibitors And supportive care --Hypertension; moderate control Continue current antihypertensives and when necessary medications --History of hypothyroidism; on Synthroid Since TSH is very low, probably overcorrection, will hold Synthroid and closely monitor --Moderate malnutrition Dietary supplements and nutrition consult --DVT prophylaxis with Lovenox DC planning. Case management If EGD is negative and patient stable can be discharged home tomorrow Plan of care discussed with the patient family members and case management History Interval history: Reason seen and evaluated medical records reviewed Underwent modified barium swallow, speech recommended mechanical soft diet which patient tolerated GI evaluation noted and appreciated Recommend possible EGD tomorrow.. Alert awake oriented 3 not in acute distress Vital signs reviewed stable Hospitalist Physical - Constitutional Vitals: Temp Pulse Resp BP Pulse Ox 98.2 F 100 H 18 130/80 96 08/02/16 16:00 08/02/16 16:00 08/02/16 16:00 08/02/16 16:00 08/02/16 10:40 General appearance: Present: no acute distress, cachectic, disheveled - EENT Eyes: Present: PERRL, EOM intact - Neck Neck: Present: supple, normal ROM - Respiratory Respiratory effort: normal Respiratory: negative: rales, rhonchi, wheezing - Cardiovascular Rhythm: regular Heart Sounds: Present: S1 & S2 - Extremities Extremities: no ischemia, pulses intact, pulses symmetrical Peripheral Pulses: within normal limits - Abdominal General gastrointestinal: soft, non-tender, non-distended, normal bowel sounds - Integumentary Integumentary: Present: clear, warm - Psychiatric Psychiatric: appropriate mood/affect, cooperative - Neurologic Neurologic: CNII-XII intact, moves all extremities Results - Labs CBC & Chem 7: 08/01/16 08:47 08/01/16 08:54 Labs: Laboratory Last Values WBC 8.6 K/mm3 (4.5-11.0) 08/01/16 08:47 RBC 4.21 M/mm3 (3.65-5.03) 08/01/16 08:47 Hgb 13.6 gm/dl (10.1-14.3) 08/01/16 08:47 Hct 40.8 % (30.3-42.9) 08/01/16 08:47 MCV 97 fl (79-97) 08/01/16 08:47 MCH 32 pg (28-32) 08/01/16 08:47 MCHC 33 % (30-34) 08/01/16 08:47 RDW 13.9 % (13.2-15.2) 08/01/16 08:47 Plt Count 177 K/mm3 (140-440) 08/01/16 08:47 Lymph % (Auto) 6.4 % (13.4-35.0) L 07/29/16 08:12 [place] % (Auto) 8.2 % (0.0-7.3) H 07/29/16 08:12 Eos % (Auto) 2.4 % (0.0-4.3) 07/29/16 08:12 Baso % (Auto) 0.6 % (0.0-1.8) 07/29/16 08:12 Lymph # 0.6 K/mm3 (1.2-5.4) L 07/29/16 08:12 [place] # 0.8 K/mm3 (0.0-0.8) 07/29/16 08:12 Eos # 0.2 K/mm3 (0.0-0.4) 07/29/16 08:12 Baso # 0.1 K/mm3 (0.0-0.1) 07/29/16 08:12 Add Manual Diff Complete 08/01/16 08:47 Total Counted 100 08/01/16 08:47 Seg Neutrophils % [employer] 08/01/16 08:47 Seg Neuts % (Manual) 89.0 % (40.0-70.0) H 08/01/16 08:47 Band Neutrophils % 4.0 % 08/01/16 08:47 Lymphocytes % (Manual) 4.0 % (13.4-35.0) L 08/01/16 08:47 Reactive Lymphs % (Man) 0 % 08/01/16 08:47 Monocytes % (Manual) 3.0 % (0.0-7.3) 08/01/16 08:47 Eosinophils % (Manual) 0 % (0.0-4.3) 08/01/16 08:47 Basophils % (Manual) 0 % (0.0-1.8) 08/01/16 08:47 Metamyelocytes % 0 % 08/01/16 08:47 Myelocytes % 0 % 08/01/16 08:47 Promyelocytes % 0 % 08/01/16 08:47 Blast Cells % 0 % 08/01/16 08:47 Nucleated RBC % Not Reportable 08/01/16 08:47 Seg Neutrophils # 7.6 K/mm3 (1.8-7.7) 07/29/16 08:12 Seg Neutrophils # Man 7.7 K/mm3 (1.8-7.7) 08/01/16 08:47 Band Neutrophils # 0.3 K/mm3 08/01/16 08:47 Lymphocytes # (Manual) 0.3 K/mm3 (1.2-5.4) L 08/01/16 08:47 Abs React Lymphs (Man) 0.0 K/mm3 08/01/16 08:47 Monocytes # (Manual) 0.3 K/mm3 (0.0-0.8) 08/01/16 08:47 Eosinophils # (Manual) 0.0 K/mm3 (0.0-0.4) 08/01/16 08:47 Basophils # (Manual) 0.0 K/mm3 (0.0-0.1) 08/01/16 08:47 Metamyelocytes # 0.0 K/mm3 08/01/16 08:47 Myelocytes # 0.0 K/mm3 08/01/16 08:47 Promyelocytes # 0.0 K/mm3 08/01/16 08:47 Blast Cells # 0.0 K/mm3 08/01/16 08:47 WBC Morphology Not Reportable 08/01/16 08:47 Hypersegmented Neuts Not Reportable 08/01/16 08:47 Hyposegmented Neuts Not Reportable 08/01/16 08:47 Hypogranular Neuts Not Reportable 08/01/16 08:47 Smudge Cells Not Reportable 08/01/16 08:47 Toxic Granulation Not Reportable 08/01/16 08:47 Toxic Vacuolation Not Reportable 08/01/16 08:47 Dohle Bodies Not Reportable 08/01/16 08:47 Pelger-Huet Anomaly Not Reportable 08/01/16 08:47 Miya Rods Not Reportable 08/01/16 08:47 Platelet Estimate Not Reportable 08/01/16 08:47 Clumped Platelets Not Reportable 08/01/16 08:47 Plt Clumps, EDTA Not Reportable 08/01/16 08:47 Large Platelets Not Reportable 08/01/16 08:47 Giant Platelets Not Reportable 08/01/16 08:47 Platelet Satelliting Not Reportable 08/01/16 08:47 Plt Morphology Comment Not Reportable 08/01/16 08:47 RBC Morphology Not Reportable 08/01/16 08:47 Dimorphic RBCs Not Reportable 08/01/16 08:47 Polychromasia Not Reportable 08/01/16 08:47 Hypochromasia Not Reportable 08/01/16 08:47 Poikilocytosis Not Reportable 08/01/16 08:47 Anisocytosis Few 08/01/16 08:47 Microcytosis Not Reportable 08/01/16 08:47 Macrocytosis Not Reportable 08/01/16 08:47 Spherocytes Not Reportable 08/01/16 08:47 Pappenheimer Bodies Not Reportable 08/01/16 08:47 Sickle Cells Not Reportable 08/01/16 08:47 Target Cells Not Reportable 08/01/16 08:47 Tear Drop Cells Not Reportable 08/01/16 08:47 Ovalocytes Not Reportable 08/01/16 08:47 Helmet Cells Not Reportable 08/01/16 08:47 Wagoner-[place]ort Bodies Not Reportable 08/01/16 08:47 [place] Rings Not Reportable 08/01/16 08:47 [place] Cells Not Reportable 08/01/16 08:47 Bite Cells Not Reportable 08/01/16 08:47 Crenated Cell Not Reportable 08/01/16 08:47 Elliptocytes Not Reportable 08/01/16 08:47 Acanthocytes (Spur) Not Reportable 08/01/16 08:47 Rouleaux Not Reportable 08/01/16 08:47 Hemoglobin C Crystals Not Reportable 08/01/16 08:47 Schistocytes Not Reportable 08/01/16 08:47 Malaria parasites Not Reportable 08/01/16 08:47 Juliocesar Bodies Not Reportable 08/01/16 08:47 Hem Pathologist Commnt No 08/01/16 08:47 PT 12.7 Sec. (12.2-14.9) 07/29/16 09:17 INR 0.96 (0.87-1.13) 07/29/16 09:17 D-Dimer 234.81 ng/mlDDU (0-234) H 07/29/16 09:17 Sodium 141 mmol/L (137-145) 08/01/16 08:54 Potassium 4.2 mmol/L (3.6-5.0) 08/01/16 08:54 Chloride 98.8 mmol/L (98-107) 08/01/16 08:54 Carbon Dioxide 30 mmol/L (22-30) 08/01/16 08:54 Anion Gap 16 mmol/L 08/01/16 08:54 BUN 14 mg/dL (7-17) 08/01/16 08:54 Creatinine 0.4 mg/dL (0.7-1.2) L 08/01/16 08:54 Estimated GFR > 60 ml/min 08/01/16 08:54 BUN/Creatinine Ratio 35.00 % 08/01/16 08:54 Glucose 136 mg/dL (65-100) H 08/01/16 08:54 Calcium 8.7 mg/dL (8.4-10.2) 08/01/16 08:54 Troponin T < 0.010 ng/mL (0.00-0.029) 07/29/16 08:12 NT-Pro-B Natriuret Pep 91.18 pg/mL (0-900) 07/29/16 08:12 TSH 0.016 mlU/mL (0.270-4.200) L 07/30/16 07:56 Thyroxine (T4) 8.6 ug/dL (4.0-12.0) 07/30/16 07:56
[2016-08-02] MEDS: ATIVAN PO PRN (23:27)
[2016-08-02] MEDS: ZOCOR PO SCH (23:28)
[2016-08-02] MEDS: ZOFRAN IV PRN (23:28)
[2016-08-03 07:48] LABS: Basophils % (Auto) 0.1 % (0.0-1.8); Hematocrit 40.4 % (30.3-42.9); Hemoglobin 13.8 gm/dl (10.1-14.3); Mean Corpuscular HGB Conc 34 % (30-34); Mean Corpuscular Hemoglobin 33 pg (28-32); Mean Corpuscular Volume 97 fl (79-97); Platelet Count 194 K/mm3 (140-440); Red Blood Count 4.18 M/mm3 (3.65-5.03); Red Cell Distribution Width 13.1 % (13.2-15.2); White Blood Count 7.7 K/mm3 (4.5-11.0)
[2016-08-03 08:03] LABS: Anion Gap 15 mmol/L; Blood Urea Nitrogen 18 mg/dL (7-17); Calcium 8.2 mg/dL (8.4-10.2); Carbon Dioxide 31 mmol/L (22-30); Chloride 96.5 mmol/L (98-107); Glucose 130 mg/dL (65-100); Sodium 138 mmol/L (137-145)
--- NOTE | 2016-08-03 08:24 | Cat Scan Report ---
FINAL REPORT EXAM: CT NECK W CON HISTORY: thyroid mass, patient has sensation of choking TECHNIQUE: CT neck with IV contrast PRIORS: Comparison is dated February 04, 2016 FINDINGS: No evidence of for pharyngeal tonsillar enlargement no evidence of enlargement of the adenoids. No pathologically enlarged lymph nodes are identified in the neck The major salivary glands are within normal limits There is marked degenerative change at the cervical spine from C2-C3 through C5-C6. Small anterior osteophytes are noted. There reversal of the normal cervical lordosis. Proximal esophagus does not appear dilated. No focal inflammatory change seen. Major vascular structures are unremarkable. There is asymmetric enlargement of the thyroid with a large complex appearing and right thyroid mass measuring approximately 5.5 centimeters in length this results in some deviation of the trachea toward the left multiple additional thyroid nodules are noted. This appears similar to the prior exam of the comparison is limited due to lack of IV contrast on the previous study. IMPRESSION: Large mass within the right lobe of the thyroid with asymmetric enlargement. This results in some deviation of the trachea to the left. Degenerative change of the cervical spine as noted above with marginal osteophytes in reversal of the normal cervical lordosis
[2016-08-03] MEDS: TESSALON PERLES PO SCH (09:28)
[2016-08-03] MEDS: SYNTHROID PO SCH (09:28)
[2016-08-03] MEDS: DUONEB 0.5 MG-3 MG/3 ML SOLN IH SCH (10:17)
[2016-08-03] MEDS ORDERED: ROBINUL ONE (12:00)
[2016-08-03] MEDS ORDERED: XYLOCAINE MPF 2% ONE (12:00)
[2016-08-03] MEDS ORDERED: NACL 0.9% 1000 ML 1,000 ML IV SCH (12:00)
[2016-08-03] MEDS ORDERED: DIPRIVAN 10 MG/ML IV ONE ×2 (12:00)
--- NOTE | 2016-08-03 12:13 | Anesthesia Consultation ---
Anesthesia Consult and Med Hx Date of service: 08/03/16 - Airway Anesthetic Teeth Evaluation: Edentulous ROM Head & Neck: Adequate Mental/Hyoid Distance: Adequate Mallampati Class: Class I Intubation Access Assessment: Good - Pulmonary Exam CTA: Yes - Cardiac Exam Cardiac Exam: RRR - Pre-Operative Health Status ASA Pre-Surgery Classification: ASA4 Proposed Anesthetic Plan: MAC - Pulmonary Hx Smoking: Yes Hx Asthma: No SOB: Yes (with exertion) COPD: Yes Hx Pneumonia: Yes Hx Sleep Apnea: No - Cardiovascular System Hx Hypertension: Yes Hx Coronary Artery Disease: No Hx Heart Attack/AMI: No Hx Angina: No Hx Percutaneous Transluminal Coronary Angioplasty (PTCA): No Hx Pacemaker: No Hx Internal Defibrillator: No Hx Valvular Heart Disease: No Hx Heart Murmur: No Hx Peripheral Vascular Disease: No - Central Nervous System Hx Psychiatric Problems: No - Gastrointestinal Hx Ulcer: Yes Hx Gastroesophageal Reflux Disease: Yes (dysphagia) - Endocrine Hx Renal Disease: No Hx End Stage Renal Disease: No Hx Cirrhosis: No Hx Liver Disease: No Hx Thyroid Disease: Yes (hypothyroid, TSH very low with High T4, need to decrease synthroid) Hx Hypothyroidism: Yes Hx Hyperthyroidism: No - Hematic Hx Anemia: Yes Hx Sickle Cell Disease: No - Other Systems Hx Cancer: No
--- NOTE | 2016-08-03 12:13 | Anesthesia Day of Surgery ---
Anesthesia Day of Surgery - Day of Surgery Patient Examined: Yes Patient H&P Reviewed: Yes Patient is NPO: Yes
--- NOTE | 2016-08-03 12:27 | Operative Report ---
Operative Report Operative Report: Date of procedure: [08/03/2016] Procedure: Esophagogastroduodenoscopy with biopsies of the antrum for H. pylori. Esophageal dilation with 44 and 50 Malian Marquez dilator towards. Preprocedure diagnosis: Dysphagia to solid foods and liquid foods equally Post procedure diagnosis: Mild distal esophagitis. No apparent stricture of the esophagus endoscopically. Bile gastritis. Deformed and widely patent pyloric channel. Endoscopist: Dr. Wray Anesthesia: Monitored anesthesia care per anesthesia department Medications: [Propofol per anesthesia] Estimated blood loss: 0 After careful discussion of the nature and purpose of the procedure as well as details the technique risks benefits and alternatives consent was obtained. The patient was placed in the left lateral decubitus position and medicated per anesthesia. The tip of the [place] EQ 570 video scope was passed per orum under direct vision into the esophagus and advanced into the stomach and descending duodenum. The descending duodenum was normal. The duodenal bulb was dilated with a probable diverticulum present. The pyloric channel was deformed and widely patent. The scope was withdrawn into the stomach and the stomach then gently insufflated with air. The antrum revealed diffuse erythema but no erosions or ulcers. There was retained bile in the antrum and body. 3 biopsies were taken in the prepyloric antrum for H. pylori testing. The stomach was further insufflated and the scope was then retroflexed and partially withdrawn. The cardia, fundus, and body of the stomach were otherwise within normal limits and easily distensible.The scope was then withdrawn in the forward position. The esophagogastric junction was at [37 cm] . Air was mild inflammation at the Z line area. The Z line was slightly irregular. There was no stricture evident. The esophageal body was normal throughout. The dilation was performed with a Marquez 44 Malian dilator and 50 Malian dilator. No significant resistance was encountered. The procedure was was well tolerated and the patient was observed in recovery. Impressions: Minimal distal esophagitis. No obvious esophageal stricture. Status post empiric dilation. Bile reflux gastritis. Biopsies taken to exclude H. pylori. Widely patent and deformed pyloric channel. Plan: Await biopsies. Continue acid suppression therapy. Redilate when necessary. Progress diet as tolerated. May go home at your discretion from the GI standpoint. Electronically signed: Zi Wray MD
[2016-08-03 12:43] VITALS: BP 119/74
--- NOTE | 2016-08-03 12:52 | Discharge Summary ---
Providers - Providers Date of Admission: 07/29/16 11:43 Date of discharge: 08/03/16 Attending physician: MANJULA HAMMER 07/31/16 14:14 Consult to Physician [CONS] Routine Consulting Provider: ROCIO TREVIÑO Reason For Exam: dysphagia Place consult to:: [facility] Notified:: ANSWERING SERVICE Phone number called:: [phone] Was contact made?: Yes Time called:: 15:40 Comment:: COMPLETED ROMERO 07/29/16 11:46 Consult to Dietitian/Nutrition [CONS] Routine Physician Instructions: Reason For Exam: Reason for Consult: Malnutrition 07/30/16 18:05 Speech Therapy Evaluation and Treat [CONS] Routine Reason For Exam: dysphagia Primary care physician: TYSHAWN ESPINOZA Hospitalization Condition: Fair Disposition: DISCHARGED TO HOME OR SELFCARE Time spent for discharge: 33 min Core Measure Documentation - Palliative Care Palliative Care/ Comfort Measures: Not Applicable - Core Measures Any of the following diagnoses?: none Exam - Constitutional Vitals: Temp Pulse Resp BP Pulse Ox 97.4 F L 79 17 119/74 95 08/03/16 12:21 08/03/16 12:42 08/03/16 12:42 08/03/16 12:42 08/03/16 12:42 General appearance: Present: no acute distress, well-nourished - EENT Eyes: Present: PERRL, EOM intact - Neck Neck: Present: supple, normal ROM - Respiratory Respiratory effort: normal Respiratory: bilateral: diminished, negative: rales, rhonchi, wheezing - Cardiovascular Rhythm: regular Heart Sounds: Present: S1 & S2 - Extremities Extremities: no ischemia, pulses intact, pulses symmetrical Peripheral Pulses: within normal limits - Abdominal General gastrointestinal: Present: soft, non-tender, non-distended, normal bowel sounds - Integumentary Integumentary: Present: clear, warm - Musculoskeletal Musculoskeletal: strength equal bilaterally - Psychiatric Psychiatric: appropriate mood/affect, cooperative - Neurologic Neurologic: CNII-XII intact, moves all extremities Plan Activity: no restrictions Diet: advance as tolerated Follow up with: TYSHAWN ESPINOZA MD [Primary Care Provider] - 3-5 Days DELL DELUCA MD [Staff Physician] - 7 Days Prescriptions: Benzonatate [Tessalon Perles] 100 mg PO Q8HR #30 capsule Levofloxacin [Levaquin TAB] 500 mg PO DAILY #5 tablet Pantoprazole [Protonix TAB] 40 mg PO QDAY #30 tablet Prednisone [predniSONE 10 mg (6-Day Pack, 21 Tabs)] 10 mg PO .TAPER #1 tab.ds.pk
== END 2016-08-03 16:11 | disposition home or self-care (01) | DRG 191 ==
LOC: ED 07:11 → 3A 11:43
PROVIDERS: ADMIT Internal Medicine; ATTEND Internal Medicine
PROC: 0DB68ZX Excision of Stomach, Via Natural or Artificial Opening Endoscopic, Diagnostic (ICD-10-PCS; principal; 2016-08-03)
PROC: 0D758ZZ Dilation of Esophagus, Via Natural or Artificial Opening Endoscopic (ICD-10-PCS; 2016-08-03)
DX: J44.1 Chronic obstructive pulmonary disease with (acute) exacerbation (principal); Z68.1 Body mass index [BMI] 19.9 or less, adult; E44.0 Moderate protein-calorie malnutrition; E03.9 Hypothyroidism, unspecified; I10 Essential (primary) hypertension; K27.9 Peptic ulcer, site unspecified, unspecified as acute or chronic, without hemorrhage or perforation; R13.12 Dysphagia, oropharyngeal phase; K29.00 Acute gastritis without bleeding; K21.9 Gastro-esophageal reflux disease without esophagitis; E78.5 Hyperlipidemia, unspecified; Z90.49 Acquired absence of other specified parts of digestive tract; Z90.710 Acquired absence of both cervix and uterus; Z98.890 Other specified postprocedural states; Z87.891 Personal history of nicotine dependence; Z79.899 Other long term (current) drug therapy; Z82.49 Family history of ischemic heart disease and other diseases of the circulatory system; Z87.01 Personal history of pneumonia (recurrent)
CPT/HCPCS: 36415; 70491; 71020; 71275; 74230; 80048; 83880; 84436; 84443; 84484; 85007; 85025; 85379; 85610; 87040; 88305; 88342; 93005; 93010; 94640; 94644; 94760; 96361; 96365; 96375; C1726; G8996-GN; G8997-GN; G8998-GN; J1650; J1956; J2405; J2704; J2920; J2930; J3475; J7030; Q9967

== ENCOUNTER 2016-08-11 04:09 | Inpatient (IN) | payer MEDICARE ==
[2016-08-11] MEDS ORDERED: ATROVENT IH ONE (05:03)
[2016-08-11] MEDS ORDERED: XOPENEX IH ONE (05:03)
[2016-08-11] MEDS ORDERED: MAGNESIUM SULFATE 2GM/50ML 50 ML IV ONE (05:03)
--- NOTE | 2016-08-11 05:30 | XRay Report ---
FINAL REPORT PROCEDURE: XR CHEST 1V AP TECHNIQUE: Chest radiograph anteroposterior view. CPT 89786 HISTORY: shortness of breath COMPARISON: No prior studies are available for comparison. FINDINGS: Heart: Normal. Mediastinum/Vessels: Normal. Lungs/Pleural space: The right lung is clear and expanded. There are diffuse infiltrates throughout the left lung. There is left-sided volume loss and mediastinal shift. These could be due to atelectasis at the left lung base. There are no effusions or pneumothoraces.. Bony thorax: No acute osseous abnormality. Life support devices: None. IMPRESSION: Heart size is normal. The right lung is clear and expanded. There are diffuse infiltrates throughout the left lung. There is left-sided volume loss and mediastinal shift. These could be due to atelectasis at the left lung base. There are no effusions or pneumothoraces..
[2016-08-11 05:35] LABS: Hematocrit 41.8 % (30.3-42.9); Hemoglobin 14.2 gm/dl (10.1-14.3); Mean Corpuscular HGB Conc 34 % (30-34); Mean Corpuscular Hemoglobin 33 pg (28-32); Mean Corpuscular Volume 96 fl (79-97); Platelet Count 333 K/mm3 (140-440); Red Blood Count 4.38 M/mm3 (3.65-5.03)
[2016-08-11 05:44] LABS: INR 1.26 (0.87-1.13)
[2016-08-11 05:45] LABS: Anion Gap 20 mmol/L; BUN/Creatinine Ratio 25.55; Blood Urea Nitrogen 23 mg/dL (7-17); Calcium 7.7 mg/dL (8.4-10.2); Carbon Dioxide 26 mmol/L (22-30); Chloride 98.2 mmol/L (98-107); Glucose 139 mg/dL (65-100); Partial Thromboplastin Time 31.6 Sec. (24.2-36.6); Potassium 4.4 mmol/L (3.6-5.0); Sodium 140 mmol/L (137-145)
[2016-08-11] MEDS ORDERED: ZOSYN/NS 4.5GM/100ML 100 ML IV ONE (05:52)
[2016-08-11 06:04] LABS: Creatine Kinase MB 1.7 ng/mL (0.0-4.0)
[2016-08-11 06:05] LABS: Creatine Kinase 106 units/L (30-135)
[2016-08-11 06:16] LABS: Basophils % (Manual) 0 % (0.0-1.8); Blastocytes % (Manual) 0 %; Diff Status Complete; Eosinophils % (Manual) 0 % (0.0-4.3); Platelet Estimate Consistent w Auto; RBC Morphology Normal
--- NOTE | 2016-08-11 06:34 | Emergency Department Report ---
HPI - General Chief Complaint: Dyspnea/Respdistress Time Seen by Provider: 08/11/16 06:17 - HPI HPI: The patient is a 71-year-old female with a history of COPD, who presents for evaluation of cough and dyspnea. The patient reports one week of a productive cough of yellow sputum, associated with constant severe dyspnea, exacerbated with exertion or activity, improved with rest. The patient denies neck pain, chest pain, syncope, hemoptysis, abdominal pain, unilateral leg swelling, dysuria, diarrhea, rash. The patient shares that she was discharged from a hospital stay one week ago after admission for COPD exacerbation. ED Past Medical Hx - Past Medical History Previous Medical History?: Yes Hx Hypertension: Yes Hx Heart Attack/AMI: No Hx Congestive Heart Failure: No Hx Diabetes: No Hx Deep Vein Thrombosis: No Hx Pulmonary Embolism: No Hx GERD: Yes Hx Liver Disease: No Hx Renal Disease: No Hx Sickle Cell Disease: No Hx Arthritis: Yes Hx Kidney Stones: No Hx Asthma: No Hx COPD: Yes Hx Tuberculosis: No Hx HIV: No Additional medical history: Hypothyrodism, hx of ulcers. - Surgical History Hx Coronary Stent: No Hx Open Heart Surgery: No Hx Pacemaker: No Hx Internal Defibrillator: No Hx Cholecystectomy: Yes Hx Appendectomy: Yes Hx Breast Surgery: Yes Additional Surgical History: hysterectomy, L ear surgery, pancreas, - Social History Smoking Status: Never Smoker Substance Use Type: None - Medications Home Medications: Home Medications Medication Instructions Recorded Confirmed Last Taken Type Amlodipine Besylate 10 mg PO QAM 07/29/16 07/29/16 07/28/16 History LORazepam [LORazepam] 2 mg PO QHS PRN 07/29/16 07/29/16 07/29/16 History Levothyroxine [Synthroid] 100 mcg PO QAM 07/29/16 07/29/16 07/28/16 History Pantoprazole Sodium [Protonix] 40 mg PO QAM 07/29/16 07/29/16 07/28/16 History Simvastatin 20 mg PO QHS 07/29/16 07/29/16 Unknown History Benzonatate [Tessalon Perles] 100 mg PO Q8HR #30 capsule 08/03/16 Unknown Rx Levofloxacin [Levaquin TAB] 500 mg PO DAILY #5 tablet 08/03/16 Unknown Rx Pantoprazole [Protonix TAB] 40 mg PO QDAY #30 tablet 08/03/16 Unknown Rx Prednisone [predniSONE 10 mg 10 mg PO .TAPER #1 tab.ds.pk 08/03/16 Unknown Rx (6-Day Pack, 21 Tabs)] ED Review of Systems ROS: Stated complaint: AMANDA Other details as noted in HPI Constitutional: denies: fever ENT: denies: throat or neck pain Respiratory: reports cough, shortness of breath Cardiovascular: denies: chest pain Endocrine: denies unexplained weight loss or gain Gastrointestinal: denies: abdominal pain, nausea Genitourinary: denies: dysuria Musculoskeletal: denies: leg swelling Skin: denies: rash Neurological: denies: headache Hematological/Lymphatic: denies: easy bleeding or easy bruising Psych: denies sadness or hopelessness Physical Exam - Physical Exam Vital Signs: Vital Signs 08/11/16 08/11/16 08/11/16 04:22 04:25 04:31 Temperature 100.7 F H Pulse Rate 153 H 139 H 122 H Pulse Rate [ Anterior Bilateral] Respiratory 51 H 44 H 40 H Rate Respiratory Rate [Anterior Bilateral] Blood Pressure 98/56 98/56 O2 Sat by Pulse 95 95 92 Oximetry 08/11/16 08/11/16 08/11/16 04:51 05:00 05:09 Temperature Pulse Rate 145 H 144 H 142 H Pulse Rate [ Anterior Bilateral] Respiratory 55 H 41 H 39 H Rate Respiratory Rate [Anterior Bilateral] Blood Pressure 107/57 103/50 103/50 O2 Sat by Pulse 92 92 93 Oximetry 08/11/16 08/11/16 08/11/16 05:19 05:32 06:00 Temperature Pulse Rate 127 H Pulse Rate [ 143 H 143 H Anterior Bilateral] Respiratory 44 H Rate Respiratory 26 H 24 Rate [Anterior Bilateral] Blood Pressure 91/48 O2 Sat by Pulse 97 Oximetry Physical Exam: General: well-developed, no acute distress Head: Normocephalic, atraumatic Eyes: normal sclera ENT: Mucous membranes are pale and dry Neck: trachea midline, neck supple, No neck stiffness, no cervical adenopathy Respiratory: Diminished breath sounds and wheezing present throughout lung isbell bilaterally, rhonchi present to the left medial and lower lung isbell, mild costal retractions present, no respiratory distress at this time Cardio: S1 and S2 present, no murmurs, rubs, gallops, capillary refill is brisk Abdomen: Normoactive bowel sounds, soft abdomen, no rigidity, no guarding or rebound tenderness Chest WALL/Back: No tenderness to palpation of the chest wall, no CVA tenderness with percussion Musc: No pitting edema Skin: No rash Neuro: no facial drooping, normal speech Psych: Normal affect ED Course Vital Signs 08/11/16 08/11/16 08/11/16 04:22 04:25 04:31 Temperature 100.7 F H Pulse Rate 153 H 139 H 122 H Pulse Rate [ Anterior Bilateral] Respiratory 51 H 44 H 40 H Rate Respiratory Rate [Anterior Bilateral] Blood Pressure 98/56 98/56 O2 Sat by Pulse 95 95 92 Oximetry 08/11/16 08/11/16 08/11/16 04:51 05:00 05:09 Temperature Pulse Rate 145 H 144 H 142 H Pulse Rate [ Anterior Bilateral] Respiratory 55 H 41 H 39 H Rate Respiratory Rate [Anterior Bilateral] Blood Pressure 107/57 103/50 103/50 O2 Sat by Pulse 92 92 93 Oximetry 08/11/16 08/11/16 08/11/16 05:19 05:32 06:00 Temperature Pulse Rate 127 H Pulse Rate [ 143 H 143 H Anterior Bilateral] Respiratory 44 H Rate Respiratory 26 H 24 Rate [Anterior Bilateral] Blood Pressure 91/48 O2 Sat by Pulse 97 Oximetry ED Medical Decision Making - Lab Data Result diagrams: 08/11/16 05:13 08/11/16 05:13 - Medical Decision Making The patient was seen and examined by myself. The patient is placed on a director cardiac and continuous pulse ox. On initial evaluation, the patient was found to be in no distress, with low-grade fever. The patient is given a tablet of Tylenol for her fever. Evaluation orders were placed. The patient is given a DuoNeb breathing treatment, placed on a nonrebreather. Chest x-ray demonstrates left medial and lower lobe infiltrate consistent with acute pneumonia. Lab results revealed leukocytosis, WBC 29, and otherwise labs are grossly not revealing. The patient is given IV Zosyn for treatment of pneumonia. The on-call hospitalist service was contacted. They agreed to admit the patient for further treatment and close monitoring. The ED admit order was placed. The patient was admitted in guarded condition. Critical care attestation.: If time is entered above; I have spent that time in minutes in the direct care of this critically ill patient, excluding procedure time. ED Disposition Clinical Impression: COPD with acute exacerbation Pneumonia Qualifiers: Pneumonia type: due to unspecified organism Laterality: left Lung location: lower lobe of lung Qualified Code(s): J18.9 - Pneumonia, unspecified organism Sepsis Qualifiers: Sepsis type: sepsis due to unspecified organism Qualified Code(s): A41.9 - Sepsis, unspecified organism Disposition: OP ADMITTED IP TO THIS HOSP Is pt being admited?: Yes Does the pt Need Aspirin: Yes Condition: Serious Instructions: Chronic Obstructive Pulmonary Disease (ED), Bacterial Pneumonia ( ED) Referrals: PRIMARY CARE, [Primary Care Provider] - 3-5 Days Time of Disposition: 06:32
[2016-08-11] MEDS ORDERED: TYLENOL PO ONE (06:53)
[2016-08-11] MEDS ORDERED: BABY ASPIRIN PO ONE (06:57)
--- NOTE | 2016-08-11 07:02 | History and Physical Report ---
History of Present Illness Chief complaint: I cant breathe History of present illness: 71 YO Female with HTN, GERD, COPD, Hypothyroidism, Severe Malnutrition presents to ED for evaluation. Pt states that she has been experiencing productive cough with increased sputum production and dyspnea for the past week. Pt symptoms have worsened over the past day. Pt acknowledge decreased ambulation due to shortness of breath. The patient denies neck pain, chest pain , syncope, hemoptysis, abdominal pain, unilateral leg swelling, dysuria, diarrhea, rash, prolonged immobililty/travel, Individual/family history of DVT/ PE. Past History Past Medical History: COPD, GERD, hypertension, hypothyroidism Past Surgical History: appendectomy, cholecystectomy, hysterectomy, Other ( breast, pancreas) Social history: Family history: hypertension Medications and Allergies Allergies Allergy/AdvReac Type Severity Reaction Status Date / Time No Known Allergies Allergy Verified 02/04/16 12:01 Home Medications Medication Instructions Recorded Confirmed Last Taken Type Amlodipine Besylate 10 mg PO QAM 07/29/16 07/29/16 07/28/16 History LORazepam [LORazepam] 2 mg PO QHS PRN 07/29/16 07/29/16 07/29/16 History Levothyroxine [Synthroid] 100 mcg PO QAM 07/29/16 07/29/16 07/28/16 History Pantoprazole Sodium [Protonix] 40 mg PO QAM 07/29/16 07/29/16 07/28/16 History Simvastatin 20 mg PO QHS 07/29/16 07/29/16 Unknown History Benzonatate [Tessalon Perles] 100 mg PO Q8HR #30 capsule 08/03/16 Unknown Rx Levofloxacin [Levaquin TAB] 500 mg PO DAILY #5 tablet 08/03/16 Unknown Rx Pantoprazole [Protonix TAB] 40 mg PO QDAY #30 tablet 08/03/16 Unknown Rx Prednisone [predniSONE 10 mg 10 mg PO .TAPER #1 tab.ds.pk 08/03/16 Unknown Rx (6-Day Pack, 21 Tabs)] Review of Systems All systems: negative Respiratory: cough with sputum, excessive sputum Exam - Constitutional Vitals: Temp Pulse Resp BP Pulse Ox 100.7 F H 130 H 43 H 91/48 97 08/11/16 04:31 08/11/16 06:11 08/11/16 06:11 08/11/16 06:11 08/11/16 06:11 General appearance: Present: mild distress - EENT Eyes: Present: PERRL ENT: hearing intact, clear oral mucosa - Neck Neck: Present: supple, normal ROM - Respiratory Respiratory effort: normal Respiratory: bilateral: diminished - Cardiovascular Heart Sounds: Present: S1 & S2. Absent: rub, click - Extremities Extremities: pulses symmetrical, No edema Peripheral Pulses: within normal limits - Abdominal General gastrointestinal: Present: soft, non-tender, non-distended, normal bowel sounds Female genitourinary: Present: normal - Integumentary Integumentary: Present: clear, warm, dry - Musculoskeletal Musculoskeletal: gait normal, strength equal bilaterally - Psychiatric Psychiatric: appropriate mood/affect, intact judgment & insight - Neurologic Neurologic: CNII-XII intact, moves all extremities Results - Labs CBC & Chem 7: 08/11/16 05:13 08/11/16 05:13 Labs: Abnormal lab results 08/11/16 08/11/16 08/11/16 Range/Units 05:13 05:13 05:13 WBC 29.0 H (4.5-11.0) K/mm3 MCH 33 H (28-32) pg Seg Neuts % (Manual) 77.0 H (40.0-70.0) % Lymphocytes % (Manual) 2.0 L (13.4-35.0) % Seg Neutrophils # Man 22.3 H (1.8-7.7) K/mm3 Lymphocytes # (Manual) 0.6 L (1.2-5.4) K/mm3 Monocytes # (Manual) 0.9 H (0.0-0.8) K/mm3 PT (12.2-14.9) Sec. INR (0.87-1.13) BUN 23 H (7-17) mg/dL Glucose 139 H (65-100) mg/dL Calcium 7.7 L (8.4-10.2) mg/dL TSH 0.013 L (0.270-4.200) mlU/mL Free T4 1.68 H (0.76-1.46) ng/dL 08/11/16 Range/Units 05:13 WBC (4.5-11.0) K/mm3 MCH (28-32) pg Seg Neuts % (Manual) (40.0-70.0) % Lymphocytes % (Manual) (13.4-35.0) % Seg Neutrophils # Man (1.8-7.7) K/mm3 Lymphocytes # (Manual) (1.2-5.4) K/mm3 Monocytes # (Manual) (0.0-0.8) K/mm3 PT 15.7 H (12.2-14.9) Sec. INR 1.26 H (0.87-1.13) BUN (7-17) mg/dL Glucose (65-100) mg/dL Calcium (8.4-10.2) mg/dL TSH (0.270-4.200) mlU/mL Free T4 (0.76-1.46) ng/dL Assessment and Plan - Patient Problems (1) Sepsis Current Visit: Yes Status: Acute Qualifiers: Sepsis type: sepsis due to unspecified organism Qualified Code(s): A41.9 - Sepsis, unspecified organism Plan to address problem: IV abx, IVF, supportive care, blood cultures, serial lactate levels (2) COPD with acute exacerbation Current Visit: Yes Status: Acute Plan to address problem: supplemental oxygen, nebs, supportive care. (3) Pneumonia Current Visit: Yes Status: Acute Qualifiers: Pneumonia type: due to unspecified organism Laterality: left Lung location: lower lobe of lung Qualified Code(s): J18.9 - Pneumonia, unspecified organism Plan to address problem: Pneumonia protocol: IV abx, blood cultures, nebs, aspiration precautions, pulmonary toilet (4) Acute respiratory failure Current Visit: No Status: Acute Plan to address problem: NIPPN as clinically indicated, supplemental oxygen, nebs, incentive spirometry prn. (5) Hypothyroidism Current Visit: No Status: Chronic Plan to address problem: resume current therapy. (6) DVT prophylaxis Current Visit: No Status: Acute
[2016-08-11] MEDS ORDERED: VANCOMYCIN IV ONE (07:03)
[2016-08-11] MEDS ORDERED: NACL 0.9% 1000 ML 1,000 ML IV ONE ×2 (07:03→20:00)
[2016-08-11] MEDS ORDERED: NACL 0.9% IV ONE (07:03)
[2016-08-11] MEDS ORDERED: ZOFRAN IV PRN (07:03)
[2016-08-11] MEDS ORDERED: VANCOMYCIN PHARMACY TO DOSE IV SCH (08:00)
[2016-08-11] MEDS ORDERED: VANCOMYCIN VIAL 750 MG in NACL 0.9% 250ML 250 ML IV ONE (08:00)
--- NOTE | 2016-08-11 09:00 | XRay Report ---
Portable chest: There is a diffuse bronchoalveolar infiltrates throughout the left lung the consolidation of the left base. Right lung remains clear. The heart is probably normal in size and there is no vascular congestion. There is no significant change compared to the prior study of August 11. Impression: Left pulmonary infiltrate. No change noted.
--- NOTE | 2016-08-11 10:37 | Admit Criteria Form ---
Admission Criteria Documentation: COPD Clinical Indications for Admission to Inpatient Care (Place 'X' for any and all applicable criteria): Admission is indicated for ANY ONE of the following (1)(2)(3): [ X]I. Acute exacerbation by high-risk comorbidity (e.g., pneumonia, dysrhythmia, heart failure, pleural effusion, pneumothorax) or severe underlying COPD (e.g., steroid dependent) [X ]II. Inpatient admission required rather than observation care (see Chronic Obstructive Pulmonary Disease: Observation Care) because of ANY ONE of the following: [ X]a) New or pre-existing signs or symptoms of COPD (eg, dyspnea or Tachypnea at rest or with minimal activity) that persist despite outpatient and observation care treatment [ ]b) New-onset hypoxemia (room air SaO2 less than 90%, PO2 less than 60 mm Hg (8.0 kPa)) that persists despite outpatient and observation care treatment [ ]c) Worsening of pre-existing hypoxemia (eg, new or increased requirement for supplemental oxygen to maintain oxygenation at baseline level) that persists despite outpatient and observation care treatment, with oxygen treatment needs performable only in acute inpatient setting [ ]d) Hypercarbia (PCO2 greater than 40 mm Hg (5.3 kPa))-induced respiratory acidosis (pH less than 7.35) that persists despite outpatient and observation care treatment [ ]e) Supplemental oxygen or respiratory treatments for over 24 hours that are performable only in acute inpatient setting [ ]f) Chest tube placement with active evacuation (e.g., suction, drainage) (5) [ ]g) Other condition, treatment or monitoring requiring inpatient admission [ ]III. Planned invasive surgical or diagnostic procedures requiring acute- care hospitalization [ ]IV. Acute respiratory failure (e.g., uncompensated hypercarbia, severe hypoxemia) [ ]V. Severe comorbid condition (e.g., severe steroid myopathy, acute vertebral fracture) that has acutely worsened pulmonary function [ ]. Confusion state, lethargy, obtundation, stupor or coma Extended stay beyond goal length of stay may be needed for (31)(32): [ ]a ) Respiratory Failure. [ ]b) Severe or persisting hypoxemia or hypercarbia [ ]c) Severe or persistent dyspnea [ ]d) Comorbidities (e.g. chronic heart failure, atrial fibrillation with rapid response, pneumonia) [ ]e) Malnutrition The original [facility] content created by [facility] has been revised. The portions of the content which have been revised are identified through the use of italic text or in bold, and [facility] has neither reviewed nor approved the modified material. All other unmodified content is copyright [facility]. Please see references footnoted in the original [facility] edition 2016 Admission Criteria Met: Yes
[2016-08-11] MEDS: NORVASC PO SCH ×2 (10:39→10:58)
[2016-08-11] MEDS: LEVAQUIN 750MG/150ML 150 ML IV SCH (10:39)
[2016-08-11] MEDS: PROTONIX PO SCH (10:39)
[2016-08-11] MEDS: SYNTHROID PO SCH (11:00)
[2016-08-11 12:45] LABS: ISTAT Base Excess 2; ISTAT HCO3 26.6; ISTAT PCO2 41.3 (35-45); ISTAT PH 7.417 (7.35-7.45); ISTAT PO2 150 (80-105); ISTAT SO2 99; ISTAT TCO2 28
[2016-08-11] MEDS: ZOSYN/NS 4.5GM/100ML 100 ML IV SCH ×3 (13:13→23:52)
[2016-08-11] MEDS: TESSALON PERLES PO SCH ×2 (15:06→22:18)
[2016-08-11] MEDS ORDERED: NACL 0.9% 1000 ML IV STA (16:14)
[2016-08-11] MEDS ORDERED: NACL 0.9% 1000 ML 1,000 ML ONE (19:55)
[2016-08-11] MEDS: ZOCOR PO SCH (22:18)
[2016-08-12] MEDS ORDERED: LASIX IV ONE (00:24)
[2016-08-12] MEDS: ZOSYN/NS 4.5GM/100ML 100 ML IV SCH ×3 (05:37→21:48)
[2016-08-12] MEDS: TESSALON PERLES PO SCH ×3 (05:43→21:48)
[2016-08-12 07:09] LABS: Hematocrit 34.1 % (30.3-42.9); Hemoglobin 11.1 gm/dl (10.1-14.3); Mean Corpuscular HGB Conc 33 % (30-34); Mean Corpuscular Hemoglobin 32 pg (28-32); Mean Corpuscular Volume 97 fl (79-97); Platelet Count 262 K/mm3 (140-440); Red Cell Distribution Width 14.6 % (13.2-15.2)
[2016-08-12 07:20] LABS: Anion Gap 13 mmol/L; Blood Urea Nitrogen 23 mg/dL (7-17); Calcium 8.1 mg/dL (8.4-10.2); Carbon Dioxide 30 mmol/L (22-30); Chloride 102.7 mmol/L (98-107); Glucose 148 mg/dL (65-100); Potassium 3.7 mmol/L (3.6-5.0); Sodium 142 mmol/L (137-145)
[2016-08-12 08:47] LABS: Basophils % (Manual) 0 % (0.0-1.8); Blastocytes % (Manual) 0 %; Eosinophils % (Manual) 0 % (0.0-4.3); Total Cells Counted Percent 4.5
[2016-08-12 08:48] LABS: Diff Status Complete; RBC Morphology Normal
--- NOTE | 2016-08-12 10:39 | Progress Note ---
Assessment and Plan Assessment and plan: 1. Sepsis. Continue IV antibiotics. Follow-up blood cultures and serial lactate levels. Continue IV fluid hydration. 2. Acute COPD exacerbation. Continue supplemental oxygen. Continue nebulized treatment. Continue supportive care. Consider pulmonary consultation. 3. Left lower lobe pneumonia. Continue IV antibiotics. Follow-up cultures. Aspiration precautions and pulmonary toilet. 4. Acute hypoxic respiratory failure. Continue supplemental oxygen and BiPAP as needed. Continue nebulizer treatment and incentive spirometry. 5. Hypothyroidism. Follow-up TSH and continue Synthroid. 6. DVT prophylaxis. Lovenox. History Interval history: Patient still complains of cough. No other new issues. Hospitalist Physical - Constitutional Vitals: Temp Pulse Resp BP Pulse Ox 97.7 F 113 H 16 94/50 93 08/12/16 07:34 08/12/16 07:34 08/12/16 07:34 08/12/16 07:34 08/12/16 10:08 General appearance: Present: mild distress - EENT Eyes: Present: PERRL, EOM intact ENT: hearing intact, clear oral mucosa, dentition normal - Neck Neck: Present: supple, normal ROM - Respiratory Respiratory effort: normal Respiratory: bilateral: diminished, rhonchi, wheezing - Cardiovascular Rhythm: regular Heart Sounds: Present: S1 & S2. Absent: gallop, rub - Extremities Extremities: no ischemia, No edema, Full ROM - Abdominal General gastrointestinal: soft, non-tender, non-distended, normal bowel sounds - Integumentary Integumentary: Present: clear, warm, dry - Neurologic Neurologic: CNII-XII intact, moves all extremities Results - Labs CBC & Chem 7: 08/12/16 05:46 08/12/16 05:46 Labs: Laboratory Last Values WBC 27.0 K/mm3 (4.5-11.0) H 08/12/16 05:46 RBC 3.50 M/mm3 (3.65-5.03) L 08/12/16 05:46 Hgb 11.1 gm/dl (10.1-14.3) D 08/12/16 05:46 Hct 34.1 % (30.3-42.9) D 08/12/16 05:46 MCV 97 fl (79-97) 08/12/16 05:46 MCH 32 pg (28-32) 08/12/16 05:46 MCHC 33 % (30-34) 08/12/16 05:46 RDW 14.6 % (13.2-15.2) 08/12/16 05:46 Plt Count 262 K/mm3 (140-440) 08/12/16 05:46 Add Manual Diff Complete 08/12/16 05:46 Total Counted 200 08/12/16 05:46 Seg Neutrophils % Sheet Metal Duct Worker Supervisor 08/12/16 05:46 Seg Neuts % (Manual) 89.0 % (40.0-70.0) H 08/12/16 05:46 Band Neutrophils % 4.5 % 08/12/16 05:46 Lymphocytes % (Manual) 2.0 % (13.4-35.0) L 08/12/16 05:46 Reactive Lymphs % (Man) 0 % 08/12/16 05:46 Monocytes % (Manual) 4.5 % (0.0-7.3) 08/12/16 05:46 Eosinophils % (Manual) 0 % (0.0-4.3) 08/12/16 05:46 Basophils % (Manual) 0 % (0.0-1.8) 08/12/16 05:46 Metamyelocytes % 0 % 08/12/16 05:46 Myelocytes % 0 % 08/12/16 05:46 Promyelocytes % 0 % 08/12/16 05:46 Blast Cells % 0 % 08/12/16 05:46 Nucleated RBC % Not Reportable 08/12/16 05:46 Seg Neutrophils # Man 24.0 K/mm3 (1.8-7.7) H 08/12/16 05:46 Band Neutrophils # 1.2 K/mm3 08/12/16 05:46 Lymphocytes # (Manual) 0.5 K/mm3 (1.2-5.4) L 08/12/16 05:46 Abs React Lymphs (Man) 0.0 K/mm3 08/12/16 05:46 Monocytes # (Manual) 1.2 K/mm3 (0.0-0.8) H 08/12/16 05:46 Eosinophils # (Manual) 0.0 K/mm3 (0.0-0.4) 08/12/16 05:46 Basophils # (Manual) 0.0 K/mm3 (0.0-0.1) 08/12/16 05:46 Metamyelocytes # 0.0 K/mm3 08/12/16 05:46 Myelocytes # 0.0 K/mm3 08/12/16 05:46 Promyelocytes # 0.0 K/mm3 08/12/16 05:46 Blast Cells # 0.0 K/mm3 08/12/16 05:46 WBC Morphology Not Reportable 08/12/16 05:46 Hypersegmented Neuts Not Reportable 08/12/16 05:46 Hyposegmented Neuts Not Reportable 08/12/16 05:46 Hypogranular Neuts Not Reportable 08/12/16 05:46 Smudge Cells Not Reportable 08/12/16 05:46 Toxic Granulation Not Reportable 08/12/16 05:46 Toxic Vacuolation Not Reportable 08/12/16 05:46 Dohle Bodies Not Reportable 08/12/16 05:46 Pelger-Huet Anomaly Not Reportable 08/12/16 05:46 Miya Rods Not Reportable 08/12/16 05:46 Platelet Estimate Appears normal 08/12/16 05:46 Clumped Platelets Not Reportable 08/12/16 05:46 Plt Clumps, EDTA Not Reportable 08/12/16 05:46 Large Platelets Not Reportable 08/12/16 05:46 Giant Platelets Not Reportable 08/12/16 05:46 Platelet Satelliting Not Reportable 08/12/16 05:46 Plt Morphology Comment Not Reportable 08/12/16 05:46 RBC Morphology Normal 08/12/16 05:46 Dimorphic RBCs Not Reportable 08/12/16 05:46 Polychromasia Not Reportable 08/12/16 05:46 Hypochromasia Not Reportable 08/12/16 05:46 Poikilocytosis Not Reportable 08/12/16 05:46 Anisocytosis Not Reportable 08/12/16 05:46 Microcytosis Not Reportable 08/12/16 05:46 Macrocytosis Not Reportable 08/12/16 05:46 Spherocytes Not Reportable 08/12/16 05:46 Pappenheimer Bodies Not Reportable 08/12/16 05:46 Sickle Cells Not Reportable 08/12/16 05:46 Target Cells Not Reportable 08/12/16 05:46 Tear Drop Cells Not Reportable 08/12/16 05:46 Ovalocytes Not Reportable 08/12/16 05:46 Helmet Cells Not Reportable 08/12/16 05:46 [place] Bodies Not Reportable 08/12/16 05:46 [place] Rings Not Reportable 08/12/16 05:46 [place] Cells Not Reportable 08/12/16 05:46 Bite Cells Not Reportable 08/12/16 05:46 Crenated Cell Not Reportable 08/12/16 05:46 Elliptocytes Not Reportable 08/12/16 05:46 Acanthocytes (Spur) Not Reportable 08/12/16 05:46 Rouleaux Not Reportable 08/12/16 05:46 Hemoglobin C Crystals Not Reportable 08/12/16 05:46 Schistocytes Not Reportable 08/12/16 05:46 Malaria parasites Not Reportable 08/12/16 05:46 Juliocesar Bodies Not Reportable 08/12/16 05:46 Hem Pathologist Commnt No 08/12/16 05:46 PT 15.7 Sec. (12.2-14.9) H 08/11/16 05:13 INR 1.26 (0.87-1.13) H 08/11/16 05:13 APTT 31.6 Sec. (24.2-36.6) 08/11/16 05:13 POC ABG pH 7.417 (7.35-7.45) 08/11/16 12:41 POC ABG pCO2 41.3 (35-45) 08/11/16 12:41 POC ABG pO2 150 (80-105) H 08/11/16 12:41 POC ABG HCO3 26.6 08/11/16 12:41 POC ABG Total CO2 28 08/11/16 12:41 POC ABG O2 Sat 99 08/11/16 12:41 POC ABG Base Excess 2 08/11/16 12:41 FiO2 50 % 08/11/16 12:41 Sodium 142 mmol/L (137-145) 08/12/16 05:46 Potassium 3.7 mmol/L (3.6-5.0) 08/12/16 05:46 Chloride 102.7 mmol/L (98-107) 08/12/16 05:46 Carbon Dioxide 30 mmol/L (22-30) 08/12/16 05:46 Anion Gap 13 mmol/L 08/12/16 05:46 BUN 23 mg/dL (7-17) H 08/12/16 05:46 Creatinine 0.5 mg/dL (0.7-1.2) L 08/12/16 05:46 Estimated GFR > 60 ml/min 08/12/16 05:46 BUN/Creatinine Ratio 46.00 % 08/12/16 05:46 Glucose 148 mg/dL (65-100) H 08/12/16 05:46 Lactic Acid 1.7 mmol/L (0.7-2.0) 08/11/16 10:34 Calcium 8.1 mg/dL (8.4-10.2) L 08/12/16 05:46 Total Creatine Kinase 106 units/L (30-135) 08/11/16 05:13 CK-MB (CK-2) 1.7 ng/mL (0.0-4.0) 08/11/16 05:13 CK-MB (CK-2) Rel Index 1.6 (0-4) 08/11/16 05:13 Troponin T < 0.010 ng/mL (0.00-0.029) 08/11/16 05:13 NT-Pro-B Natriuret Pep 623.4 pg/mL (0-900) 08/11/16 05:13 TSH 0.013 mlU/mL (0.270-4.200) L 08/11/16 05:13 Free T4 1.68 ng/dL (0.76-1.46) H 08/11/16 05:13
[2016-08-12] MEDS: BROVANA NEBU IH SCH ×2 (12:32→21:36)
[2016-08-12] MEDS: PULMICORT IH SCH ×2 (12:32→21:36)
[2016-08-12] MEDS: DUONEB 0.5 MG-3 MG/3 ML SOLN IH SCH ×4 (12:32→23:51)
[2016-08-12] MEDS: VANCOMYCIN VIAL 750 MG in NACL 0.9% 250ML 250 ML IV SCH (13:21)
[2016-08-12] MEDS: SYNTHROID PO SCH (13:22)
[2016-08-12] MEDS: PROTONIX PO SCH (13:22)
[2016-08-12] MEDS: NORVASC PO SCH (13:24)
--- NOTE | 2016-08-12 16:36 | Consultation ---
History of Present Illness Consult date: 08/12/16 Requesting physician: INDER PAIGE Reason for consult: other (Pneumonia) History of present illness: 71 yo recently discharged s/p COPD exacerbation. She is on O2 most of the time at home. Developed increased SOB and cough w/ purulent sputum + blood-streaked sputum. No chest pain, fevers, chills. Minimal wheezing. Active Medications Acetaminophen (Tylenol) 650 mg PO Q4H PRN PRN Reason: Pain MILD(1-3)/Fever >100.5/GARNER Albuterol (Proventil) 2.5 mg IH Q4HRT PRN PRN Reason: Shortness Of Breath Albuterol/Ipratropium (Duoneb 0.5 Mg-3 Mg/3 Ml Soln) 1 ampul IH Q4HRT [facility] Last Admin: 08/12/16 12:32 Dose: 1 ampul Amlodipine Besylate (Norvasc) 10 mg PO QAM [facility] Last Admin: 08/12/16 13:24 Dose: Not Given Arformoterol Tartrate (Brovana Nebu) 15 mcg IH Q12HRT [facility] Last Admin: 08/12/16 12:32 Dose: 15 mcg Benzonatate (Tessalon Perles) 100 mg PO Q8HR [facility] Last Admin: 08/12/16 13:22 Dose: 100 mg Budesonide (Pulmicort) 0.5 mg IH Q12HRT [facility] Last Admin: 08/12/16 12:32 Dose: 0.5 mg Levofloxacin/Dextrose (Levaquin 750mg/150ml) 150 mls @ 100 mls/hr IV Q48HR [facility] PRN Reason: Protocol Last Admin: 08/11/16 10:39 Dose: 100 mls/hr Sodium Chloride (Nacl 0.9% 1000 Ml) 1,000 mls @ 125 mls/hr IV DIRECT [facility] Piperacillin Sod/Tazobactam Sod (Zosyn/Ns 4.5gm/100ml) 100 mls @ 100 mls/30 min IV Q8HR [facility] PRN Reason: Protocol Vancomycin HCl 750 mg/ Sodium (Chloride) 250 mls @ 166.667 mls/hr IV Q24H [facility] Last Admin: 08/12/16 13:21 Dose: 166.667 mls/hr Levothyroxine Sodium (Synthroid) 100 mcg PO QAM [facility] Last Admin: 08/12/16 13:22 Dose: 100 mcg Lorazepam (Ativan) 2 mg PO QHS PRN PRN Reason: Sleep Ondansetron HCl (Zofran) 4 mg IV Q8H PRN PRN Reason: N/V unrelieved by Reglan Pantoprazole Sodium (Protonix) 40 mg PO QDAY [facility] Last Admin: 08/12/16 13:22 Dose: 40 mg Simvastatin (Zocor) 20 mg PO QHS [facility] Last Admin: 08/11/16 22:18 Dose: 20 mg Tiotropium [place] (Spiriva) 1 puff IH Q24HRT [facility] Vancomycin HCl (Vancomycin Pharmacy To Dose) 1 each IV PKCONSULT [facility] PRN Reason: Protocol Past History Past Medical History: COPD, GERD, hypertension, hypothyroidism Past Surgical History: appendectomy, cholecystectomy, hysterectomy, Other ( breast, pancreas) Social history: , lives with family. denies: smoking, alcohol abuse, prescription drug abuse, IV drug use Family history: hypertension Medications and Allergies Allergies Allergy/AdvReac Type Severity Reaction Status Date / Time No Known Allergies Allergy Verified 02/04/16 12:01 Home Medications Medication Instructions Recorded Confirmed Last Taken Type Amlodipine Besylate 10 mg PO QAM 07/29/16 07/29/16 07/28/16 History LORazepam [LORazepam] 2 mg PO QHS PRN 07/29/16 07/29/16 07/29/16 History Levothyroxine [Synthroid] 100 mcg PO QAM 07/29/16 07/29/16 07/28/16 History Pantoprazole Sodium [Protonix] 40 mg PO QAM 07/29/16 07/29/16 07/28/16 History Simvastatin 20 mg PO QHS 07/29/16 07/29/16 Unknown History Benzonatate [Tessalon Perles] 100 mg PO Q8HR #30 capsule 08/03/16 Unknown Rx Levofloxacin [Levaquin TAB] 500 mg PO DAILY #5 tablet 08/03/16 Unknown Rx Pantoprazole [Protonix TAB] 40 mg PO QDAY #30 tablet 08/03/16 Unknown Rx Prednisone [predniSONE 10 mg 10 mg PO .TAPER #1 tab.ds.pk 08/03/16 Unknown Rx (6-Day Pack, 21 Tabs)] Active Meds: Active Medications Acetaminophen (Tylenol) 650 mg PO Q4H PRN PRN Reason: Pain MILD(1-3)/Fever >100.5/GARNER Albuterol (Proventil) 2.5 mg IH Q4HRT PRN PRN Reason: Shortness Of Breath Albuterol/Ipratropium (Duoneb 0.5 Mg-3 Mg/3 Ml Soln) 1 ampul IH Q4HRT [facility] Last Admin: 08/12/16 12:32 Dose: 1 ampul Amlodipine Besylate (Norvasc) 10 mg PO QAM [facility] Last Admin: 08/12/16 13:24 Dose: Not Given Arformoterol Tartrate (Brovana Nebu) 15 mcg IH Q12HRT [facility] Last Admin: 08/12/16 12:32 Dose: 15 mcg Benzonatate (Tessalon Perles) 100 mg PO Q8HR [facility] Last Admin: 08/12/16 13:22 Dose: 100 mg Budesonide (Pulmicort) 0.5 mg IH Q12HRT [facility] Last Admin: 08/12/16 12:32 Dose: 0.5 mg Levofloxacin/Dextrose (Levaquin 750mg/150ml) 150 mls @ 100 mls/hr IV Q48HR [facility] PRN Reason: Protocol Last Admin: 08/11/16 10:39 Dose: 100 mls/hr Sodium Chloride (Nacl 0.9% 1000 Ml) 1,000 mls @ 125 mls/hr IV DIRECT [facility] Piperacillin Sod/Tazobactam Sod (Zosyn/Ns 4.5gm/100ml) 100 mls @ 100 mls/30 min IV Q8HR [facility] PRN Reason: Protocol Vancomycin HCl 750 mg/ Sodium (Chloride) 250 mls @ 166.667 mls/hr IV Q24H [facility] Last Admin: 08/12/16 13:21 Dose: 166.667 mls/hr Levothyroxine Sodium (Synthroid) 100 mcg PO QAM [facility] Last Admin: 08/12/16 13:22 Dose: 100 mcg Lorazepam (Ativan) 2 mg PO QHS PRN PRN Reason: Sleep Ondansetron HCl (Zofran) 4 mg IV Q8H PRN PRN Reason: N/V unrelieved by Reglan Pantoprazole Sodium (Protonix) 40 mg PO QDAY [facility] Last Admin: 08/12/16 13:22 Dose: 40 mg Simvastatin (Zocor) 20 mg PO QHS [facility] Last Admin: 08/11/16 22:18 Dose: 20 mg Tiotropium [place] (Spiriva) 1 puff IH Q24HRT [facility] Vancomycin HCl (Vancomycin Pharmacy To Dose) 1 each IV PKCONSULT [facility] PRN Reason: Protocol Review of Systems All systems: negative (neg x 10 except as per HPI) Physical Examination Vital signs: Vital Signs Pulse Resp Pulse Ox 153 H 51 H 95 08/11/16 04:22 08/11/16 04:22 08/11/16 04:22 Vital Signs - 24 hr 08/11/16 08/11/16 08/11/16 18:08 20:36 22:00 Temperature Pulse Rate [ Anterior Bilateral] Pulse Rate [ Apical] Pulse Rate [ 107 H From Monitor] Respiratory 20 Rate Respiratory Rate [Anterior Bilateral] Blood Pressure 88/50 [Left Arm] O2 Sat by Pulse 93 Oximetry 08/11/16 08/12/16 08/12/16 22:21 02:30 07:34 Temperature 98.6 F 97.7 F Pulse Rate [ Anterior Bilateral] Pulse Rate [ 90 113 H Apical] Pulse Rate [ From Monitor] Respiratory 20 16 Rate Respiratory Rate [Anterior Bilateral] Blood Pressure 92/68 88/50 94/50 [Left Arm] O2 Sat by Pulse 94 95 Oximetry 08/12/16 08/12/16 08/12/16 09:04 10:08 10:45 Temperature 98.1 F Pulse Rate [ Anterior Bilateral] Pulse Rate [ 112 H Apical] Pulse Rate [ From Monitor] Respiratory 18 Rate Respiratory Rate [Anterior Bilateral] Blood Pressure 124/71 [Left Arm] O2 Sat by Pulse 92 93 95 Oximetry 08/12/16 08/12/16 08/12/16 12:35 12:53 14:21 Temperature 98.1 F Pulse Rate [ 124 H 132 H Anterior Bilateral] Pulse Rate [ 114 H Apical] Pulse Rate [ From Monitor] Respiratory 18 Rate Respiratory 20 20 Rate [Anterior Bilateral] Blood Pressure 112/66 [Left Arm] O2 Sat by Pulse 93 Oximetry General appearance: no acute distress, alert, other (cachectic) Eyes: non-icteric ENT: oropharynx moist Neck: supple Effort: normal Ascultation: Left: rhonchi Cardiovascular: other (tachy, RR; no mrg) Gastrointestinal: normoactive bowel sounds, soft, non-tender, non-distended Integumentary: normal Extremities: no cyanosis, no edema, pink and warm normal mental status, non-focal exam, pupils equal and round, CN II-XII normal mood appropriate, affect normal Results - Laboratory Findings CBC and BMP: 08/12/16 05:46 08/12/16 05:46 ABG POC ABG pH 7.417 (7.35-7.45) 08/11/16 12:41 POC ABG pCO2 41.3 (35-45) 08/11/16 12:41 POC ABG pO2 150 (80-105) H 08/11/16 12:41 POC ABG HCO3 26.6 08/11/16 12:41 POC ABG Total CO2 28 08/11/16 12:41 POC ABG O2 Sat 99 08/11/16 12:41 PT/INR, D-dimer PT 15.7 Sec. (12.2-14.9) H 08/11/16 05:13 INR 1.26 (0.87-1.13) H 08/11/16 05:13 Abnormal lab findings: Abnormal Labs 08/11/16 08/12/16 08/12/16 12:41 05:46 05:46 WBC 27.0 H RBC 3.50 L Seg Neuts % (Manual) 89.0 H Lymphocytes % (Manual) 2.0 L Seg Neutrophils # Man 24.0 H Lymphocytes # (Manual) 0.5 L Monocytes # (Manual) 1.2 H POC ABG pO2 150 H BUN 23 H Creatinine 0.5 L Glucose 148 H Calcium 8.1 L - Diagnostic Findings Chest x-ray: report reviewed, image reviewed (extensive L sided infiltrates) Assessment and Plan Imp: 1. Pneumonia, HCAP versus aspiration 2. Sepsis per criteria 3. Centrilobular emphysema; mild COPD exac. 4. A/C respiratory failure, hypoxia 5. Cachexia 6. Oropharyngeal dysphagia Rec: 1. Agree w/ Vanco/Zosyn/Levaquin 2. Holding off on systemic steroids given absence of bronchospasm 3. Cont. Duonebs, Pulmicort/Brovana 4. IVFs; lactate normal 5. Repeat labs in AM 6. Adjust diet as per ST recs from last admit; consider having them f/u to see the patient 7. SCDs ordered for DVT PPx Plan of care reviewed w/ patient/family, they understand/agree Thanks for the consult. Will follow closely.
[2016-08-12] MEDS: TYLENOL PO PRN (17:57)
[2016-08-12] MEDS: ZOCOR PO SCH (21:46)
[2016-08-12] MEDS: ATIVAN PO PRN (21:49)
[2016-08-13] MEDS: DUONEB 0.5 MG-3 MG/3 ML SOLN IH SCH ×5 (04:13→19:15)
[2016-08-13] MEDS: TESSALON PERLES PO SCH ×3 (05:29→21:38)
[2016-08-13] MEDS: TYLENOL PO PRN (05:29)
[2016-08-13] MEDS: NACL 0.9% 1000 ML 1,000 ML IV SCH (05:30)
[2016-08-13] MEDS: NORCO 5/325 PO PRN ×3 (06:08→21:39)
[2016-08-13] MEDS: ZOSYN/NS 4.5GM/100ML 100 ML IV SCH ×3 (06:10→21:38)
[2016-08-13 06:40] LABS: Hematocrit 35.8 % (30.3-42.9); Hemoglobin 11.9 gm/dl (10.1-14.3); Mean Corpuscular HGB Conc 33 % (30-34); Mean Corpuscular Hemoglobin 32 pg (28-32); Mean Corpuscular Volume 97 fl (79-97); Platelet Count 265 K/mm3 (140-440); White Blood Count 18.5 K/mm3 (4.5-11.0)
[2016-08-13 07:00] LABS: Anion Gap 16 mmol/L; Blood Urea Nitrogen 16 mg/dL (7-17); Calcium 7.6 mg/dL (8.4-10.2); Carbon Dioxide 28 mmol/L (22-30); Chloride 104.6 mmol/L (98-107); Glucose 132 mg/dL (65-100); Magnesium 1.8 mg/dL (1.7-2.3); Potassium 3.5 mmol/L (3.6-5.0); Sodium 145 mmol/L (137-145)
[2016-08-13] MEDS: PULMICORT IH SCH ×2 (07:13→19:14)
[2016-08-13] MEDS: BROVANA NEBU IH SCH ×2 (07:13→19:14)
--- NOTE | 2016-08-13 08:22 | Progress Note ---
Assessment and Plan Assessment and plan: 1. Sepsis. Patient with a temperature spike last evening of 101.8. Continue to monitor temperature curve. Continue IV antibiotics. Follow-up blood cultures and serial lactate levels. Continue IV fluid hydration. 2. Acute COPD exacerbation. Continue supplemental oxygen. Continue duonebs, Pulmicort and Brovana. Continue supportive care. Pulmonary following. 3. Left lower lobe pneumonia. Patient with healthcare associated pneumonia versus aspiration. Continue IV antibiotics. Follow-up cultures. Aspiration precautions and pulmonary toileting. 4. Acute on chronic hypoxic respiratory failure. Continue supplemental oxygen and BiPAP as needed. Continue nebulizer treatment and incentive spirometry. 5. Hypothyroidism. Follow-up TSH and continue Synthroid. 6. DVT prophylaxis. Lovenox. History Interval history: Patient still complains of cough. Patient also exhibits dyspnea with minimal exertion. Hospitalist Physical - Constitutional Vitals: Temp Pulse Resp BP Pulse Ox 101.8 F H 114 H 20 135/63 92 08/13/16 04:28 08/13/16 04:30 08/13/16 04:30 08/13/16 04:28 08/13/16 05:43 General appearance: Present: mild distress - EENT Eyes: Present: PERRL, EOM intact ENT: hearing intact, clear oral mucosa, dentition normal - Neck Neck: Present: supple, normal ROM - Respiratory Respiratory effort: normal Respiratory: bilateral: diminished, rhonchi, wheezing - Cardiovascular Rhythm: regular Heart Sounds: Present: S1 & S2. Absent: gallop, rub - Extremities Extremities: no ischemia, No edema, Full ROM - Abdominal General gastrointestinal: soft, non-tender, non-distended, normal bowel sounds - Integumentary Integumentary: Present: clear, warm, dry - Neurologic Neurologic: CNII-XII intact, moves all extremities Results - Labs CBC & Chem 7: 08/13/16 06:01 08/13/16 06:01 Labs: Laboratory Last Values WBC 18.5 K/mm3 (4.5-11.0) H 08/13/16 06:01 RBC 3.70 M/mm3 (3.65-5.03) 08/13/16 06:01 Hgb 11.9 gm/dl (10.1-14.3) 08/13/16 06:01 Hct 35.8 % (30.3-42.9) 08/13/16 06:01 MCV 97 fl (79-97) 08/13/16 06:01 MCH 32 pg (28-32) 08/13/16 06:01 MCHC 33 % (30-34) 08/13/16 06:01 RDW 14.0 % (13.2-15.2) 08/13/16 06:01 Plt Count 265 K/mm3 (140-440) 08/13/16 06:01 Add Manual Diff Complete 08/12/16 05:46 Total Counted 200 08/12/16 05:46 Seg Neutrophils % Golf Manager 08/13/16 06:01 Seg Neuts % (Manual) 89.0 % (40.0-70.0) H 08/12/16 05:46 Band Neutrophils % 4.5 % 08/12/16 05:46 Lymphocytes % (Manual) 2.0 % (13.4-35.0) L 08/12/16 05:46 Reactive Lymphs % (Man) 0 % 08/12/16 05:46 Monocytes % (Manual) 4.5 % (0.0-7.3) 08/12/16 05:46 Eosinophils % (Manual) 0 % (0.0-4.3) 08/12/16 05:46 Basophils % (Manual) 0 % (0.0-1.8) 08/12/16 05:46 Metamyelocytes % 0 % 08/12/16 05:46 Myelocytes % 0 % 08/12/16 05:46 Promyelocytes % 0 % 08/12/16 05:46 Blast Cells % 0 % 08/12/16 05:46 Nucleated RBC % Not Reportable 08/12/16 05:46 Seg Neutrophils # Man 24.0 K/mm3 (1.8-7.7) H 08/12/16 05:46 Band Neutrophils # 1.2 K/mm3 08/12/16 05:46 Lymphocytes # (Manual) 0.5 K/mm3 (1.2-5.4) L 08/12/16 05:46 Abs React Lymphs (Man) 0.0 K/mm3 08/12/16 05:46 Monocytes # (Manual) 1.2 K/mm3 (0.0-0.8) H 08/12/16 05:46 Eosinophils # (Manual) 0.0 K/mm3 (0.0-0.4) 08/12/16 05:46 Basophils # (Manual) 0.0 K/mm3 (0.0-0.1) 08/12/16 05:46 Metamyelocytes # 0.0 K/mm3 08/12/16 05:46 Myelocytes # 0.0 K/mm3 08/12/16 05:46 Promyelocytes # 0.0 K/mm3 08/12/16 05:46 Blast Cells # 0.0 K/mm3 08/12/16 05:46 WBC Morphology Not Reportable 08/12/16 05:46 Hypersegmented Neuts Not Reportable 08/12/16 05:46 Hyposegmented Neuts Not Reportable 08/12/16 05:46 Hypogranular Neuts Not Reportable 08/12/16 05:46 Smudge Cells Not Reportable 08/12/16 05:46 Toxic Granulation Not Reportable 08/12/16 05:46 Toxic Vacuolation Not Reportable 08/12/16 05:46 Dohle Bodies Not Reportable 08/12/16 05:46 Pelger-Huet Anomaly Not Reportable 08/12/16 05:46 Miya Rods Not Reportable 08/12/16 05:46 Platelet Estimate Appears normal 08/12/16 05:46 Clumped Platelets Not Reportable 08/12/16 05:46 Plt Clumps, EDTA Not Reportable 08/12/16 05:46 Large Platelets Not Reportable 08/12/16 05:46 Giant Platelets Not Reportable 08/12/16 05:46 Platelet Satelliting Not Reportable 08/12/16 05:46 Plt Morphology Comment Not Reportable 08/12/16 05:46 RBC Morphology Normal 08/12/16 05:46 Dimorphic RBCs Not Reportable 08/12/16 05:46 Polychromasia Not Reportable 08/12/16 05:46 Hypochromasia Not Reportable 08/12/16 05:46 Poikilocytosis Not Reportable 08/12/16 05:46 Anisocytosis Not Reportable 08/12/16 05:46 Microcytosis Not Reportable 08/12/16 05:46 Macrocytosis Not Reportable 08/12/16 05:46 Spherocytes Not Reportable 08/12/16 05:46 Pappenheimer Bodies Not Reportable 08/12/16 05:46 Sickle Cells Not Reportable 08/12/16 05:46 Target Cells Not Reportable 08/12/16 05:46 Tear Drop Cells Not Reportable 08/12/16 05:46 Ovalocytes Not Reportable 08/12/16 05:46 Helmet Cells Not Reportable 08/12/16 05:46 [place] Bodies Not Reportable 08/12/16 05:46 [place] Rings Not Reportable 08/12/16 05:46 [place] Cells Not Reportable 08/12/16 05:46 Bite Cells Not Reportable 08/12/16 05:46 Crenated Cell Not Reportable 08/12/16 05:46 Elliptocytes Not Reportable 08/12/16 05:46 Acanthocytes (Spur) Not Reportable 08/12/16 05:46 Rouleaux Not Reportable 08/12/16 05:46 Hemoglobin C Crystals Not Reportable 08/12/16 05:46 Schistocytes Not Reportable 08/12/16 05:46 Malaria parasites Not Reportable 08/12/16 05:46 Juliocesar Bodies Not Reportable 08/12/16 05:46 Hem Pathologist Commnt No 08/12/16 05:46 PT 15.7 Sec. (12.2-14.9) H 08/11/16 05:13 INR 1.26 (0.87-1.13) H 08/11/16 05:13 APTT 31.6 Sec. (24.2-36.6) 08/11/16 05:13 POC ABG pH 7.417 (7.35-7.45) 08/11/16 12:41 POC ABG pCO2 41.3 (35-45) 08/11/16 12:41 POC ABG pO2 150 (80-105) H 08/11/16 12:41 POC ABG HCO3 26.6 08/11/16 12:41 POC ABG Total CO2 28 08/11/16 12:41 POC ABG O2 Sat 99 08/11/16 12:41 POC ABG Base Excess 2 08/11/16 12:41 FiO2 50 % 08/11/16 12:41 Sodium 145 mmol/L (137-145) 08/13/16 06:01 Potassium 3.5 mmol/L (3.6-5.0) L 08/13/16 06:01 Chloride 104.6 mmol/L (98-107) 08/13/16 06:01 Carbon Dioxide 28 mmol/L (22-30) 08/13/16 06:01 Anion Gap 16 mmol/L 08/13/16 06:01 BUN 16 mg/dL (7-17) 08/13/16 06:01 Creatinine 0.4 mg/dL (0.7-1.2) L 08/13/16 06:01 Estimated GFR > 60 ml/min 08/13/16 06:01 BUN/Creatinine Ratio 40.00 % 08/13/16 06:01 Glucose 132 mg/dL (65-100) H 08/13/16 06:01 Lactic Acid 1.7 mmol/L (0.7-2.0) 08/11/16 10:34 Calcium 7.6 mg/dL (8.4-10.2) L 08/13/16 06:01 Magnesium 1.8 mg/dL (1.7-2.3) 08/13/16 06:01 Total Creatine Kinase 106 units/L (30-135) 08/11/16 05:13 CK-MB (CK-2) 1.7 ng/mL (0.0-4.0) 08/11/16 05:13 CK-MB (CK-2) Rel Index 1.6 (0-4) 08/11/16 05:13 Troponin T < 0.010 ng/mL (0.00-0.029) 08/11/16 05:13 NT-Pro-B Natriuret Pep 623.4 pg/mL (0-900) 08/11/16 05:13 TSH 0.013 mlU/mL (0.270-4.200) L 08/11/16 05:13 Free T4 1.68 ng/dL (0.76-1.46) H 08/11/16 05:13
[2016-08-13 08:47] LABS: Basophils % (Manual) 0 % (0.0-1.8); Blastocytes % (Manual) 0 %
[2016-08-13 08:48] LABS: Anisocytosis Few; Diff Status Complete
[2016-08-13] MEDS: SPIRIVA IH SCH (09:56)
[2016-08-13] MEDS: LEVAQUIN 750MG/150ML 150 ML IV SCH (10:53)
[2016-08-13] MEDS: NORVASC PO SCH (10:55)
[2016-08-13] MEDS: PROTONIX PO SCH (10:56)
[2016-08-13] MEDS: SYNTHROID PO SCH (10:56)
[2016-08-13] MEDS: VANCOMYCIN VIAL 750 MG in NACL 0.9% 250ML 250 ML IV SCH (15:05)
[2016-08-13] MEDS: ZOCOR PO SCH (21:39)
[2016-08-14] MEDS: DUONEB 0.5 MG-3 MG/3 ML SOLN IH SCH ×6 (00:17→19:35)
[2016-08-14] MEDS: ATIVAN PO PRN (02:06)
[2016-08-14] MEDS: PROVENTIL IH PRN (05:03)
[2016-08-14] MEDS: ZOSYN/NS 4.5GM/100ML 100 ML IV SCH ×3 (06:02→21:52)
[2016-08-14] MEDS: TESSALON PERLES PO SCH ×3 (06:03→21:54)
[2016-08-14] MEDS: NACL 0.9% 1000 ML 1,000 ML IV SCH (06:09)
[2016-08-14 06:56] LABS: ISTAT Base Excess 4; ISTAT HCO3 28.6; ISTAT PCO2 47.5 (35-45); ISTAT PH 7.388 (7.35-7.45); ISTAT PO2 104 (80-105); ISTAT SO2 98; ISTAT TCO2 30
[2016-08-14 06:56] LABS: ISTAT Base Excess 4; ISTAT HCO3 29.3; ISTAT PCO2 51.5 (35-45); ISTAT PH 7.364 (7.35-7.45); ISTAT PO2 48 (80-105); ISTAT SO2 81; ISTAT TCO2 31
[2016-08-14] MEDS: BROVANA NEBU IH SCH ×2 (07:11→19:36)
[2016-08-14] MEDS: PULMICORT IH SCH ×2 (07:11→19:35)
--- NOTE | 2016-08-14 08:52 | Progress Note ---
Assessment and Plan Acute hypoxemic respiratory failure. At the bedside with oximetry of 99% on BiPAP support. Not labored COPD with exacerbation Advanced emphysema Cachexia, protein caloric malnutrition Tobacco abuse? On my review, family unclear whether the patient's smoking or not. Recommendations Continue BiPAP at present setting. Discontinued none time initiating nasal cannula and monitor for tolerance Maintain oximetry over 90% at all times If not tolerated update a tubal gases Initiate WILFREDO nebulizer therapy with 4 hours Start patient on IV steroids Subjective Date of service: 08/14/16 Principal diagnosis: COPD Exacerbation, hypoxemia respiratory failure Interval history: Her family patient was more short of breath and anxious this morning. Feeling better now on BiPAP. No chest pain hemoptysis or active expectoration noted at this time Objective Vital Signs - 12hr 08/13/16 08/13/16 08/13/16 21:39 22:00 22:39 Temperature Pulse Rate Pulse Rate [ Anterior Bilateral Throughout] Pulse Rate [ 120 H Left Radial] Pulse Rate [ 117 H Right Radial] Respiratory 22 22 20 Rate Respiratory Rate [Anterior Bilateral Throughout] Respiratory 22 Rate [Back] Respiratory 22 Rate [Lower Abdomen] Blood Pressure [Left Arm] O2 Sat by Pulse 98 Oximetry 08/14/16 08/14/16 08/14/16 00:00 05:03 05:13 Temperature 98.6 F Pulse Rate Pulse Rate [ 125 H 126 H Anterior Bilateral Throughout] Pulse Rate [ Left Radial] Pulse Rate [ 115 H Right Radial] Respiratory 24 Rate Respiratory 22 25 H Rate [Anterior Bilateral Throughout] Respiratory Rate [Back] Respiratory Rate [Lower Abdomen] Blood Pressure 134/60 [Left Arm] O2 Sat by Pulse 93 Oximetry 08/14/16 08/14/16 05:39 08:05 Temperature 98.5 F Pulse Rate 127 H Pulse Rate [ Anterior Bilateral Throughout] Pulse Rate [ 117 H Left Radial] Pulse Rate [ Right Radial] Respiratory 26 H 16 Rate Respiratory Rate [Anterior Bilateral Throughout] Respiratory Rate [Back] Respiratory Rate [Lower Abdomen] Blood Pressure 114/59 [Left Arm] O2 Sat by Pulse 95 99 Oximetry Constitutional: no acute distress, alert, other (cachectic) Eyes: non-icteric ENT: oropharynx moist Neck: supple Effort: normal Ascultation: Bilateral: diminished breath sounds Cardiovascular: other (tachy, RR; no mrg) Gastrointestinal: normoactive bowel sounds, soft, non-tender, non-distended Integumentary: normal Extremities: no cyanosis, no edema, pink and warm Neurologic: normal mental status, non-focal exam, pupils equal and round, CN II- XII normal Psychiatric: mood appropriate, affect normal CBC and BMP: 08/13/16 06:01 08/13/16 06:01 ABG, PT/INR, D-dimer: ABG POC ABG pH 7.388 (7.35-7.45) 08/14/16 06:44 POC ABG pCO2 47.5 (35-45) H 08/14/16 06:44 POC ABG pO2 104 (80-105) 08/14/16 06:44 POC ABG HCO3 28.6 08/14/16 06:44 POC ABG Total CO2 30 08/14/16 06:44 POC ABG O2 Sat 98 08/14/16 06:44 PT/INR, D-dimer PT 15.7 Sec. (12.2-14.9) H 08/11/16 05:13 INR 1.26 (0.87-1.13) H 08/11/16 05:13 Abnormal lab findings: Abnormal Labs 08/11/16 08/12/16 08/12/16 12:41 05:46 05:46 WBC 27.0 H RBC 3.50 L Seg Neuts % (Manual) 89.0 H Lymphocytes % (Manual) 2.0 L Seg Neutrophils # Man 24.0 H Lymphocytes # (Manual) 0.5 L Monocytes # (Manual) 1.2 H POC ABG pCO2 POC ABG pO2 150 H Potassium BUN 23 H Creatinine 0.5 L Glucose 148 H Calcium 8.1 L 08/13/16 08/13/16 08/14/16 06:01 06:01 05:48 WBC 18.5 H RBC Seg Neuts % (Manual) 93.0 H Lymphocytes % (Manual) 5.0 L Seg Neutrophils # Man 17.2 H Lymphocytes # (Manual) 0.9 L Monocytes # (Manual) POC ABG pCO2 51.5 H POC ABG pO2 48 L Potassium 3.5 L BUN Creatinine 0.4 L Glucose 132 H Calcium 7.6 L 08/14/16 06:44 WBC RBC Seg Neuts % (Manual) Lymphocytes % (Manual) Seg Neutrophils # Man Lymphocytes # (Manual) Monocytes # (Manual) POC ABG pCO2 47.5 H POC ABG pO2 Potassium BUN Creatinine Glucose Calcium
[2016-08-14] MEDS: SPIRIVA IH SCH (09:15)
[2016-08-14] MEDS: NORVASC PO SCH (10:00)
--- NOTE | 2016-08-14 10:10 | Progress Note ---
Assessment and Plan Assessment and plan: 1. Sepsis. Continue IV antibiotics. Follow-up blood cultures and serial lactate levels. Continue IV fluid hydration. 2. Acute COPD exacerbation. Continue supplemental oxygen. Continue duonebs, Pulmicort and Brovana. We will start IV Solu-Medrol. Continue supportive care. Pulmonary following. 3. Left lower lobe pneumonia. Patient with healthcare associated pneumonia versus aspiration. Continue IV antibiotics. Follow-up cultures. Aspiration precautions and pulmonary toileting. Speech evaluation. 4. Acute on chronic hypoxic respiratory failure. Continue supplemental oxygen and BiPAP as needed. Continue nebulizer treatment and incentive spirometry. 5. Hypothyroidism. Follow-up TSH and continue Synthroid. 6. DVT prophylaxis. Lovenox. History Interval history: Patient still complains of cough. Patient also exhibits dyspnea with minimal exertion. Patient currently on BiPAP Hospitalist Physical - Constitutional Vitals: Temp Pulse Resp BP Pulse Ox 98.5 F 117 H 16 114/59 99 08/14/16 08:05 08/14/16 08:05 08/14/16 08:05 08/14/16 08:05 08/14/16 08:05 General appearance: Present: mild distress, other (on bipap) - EENT Eyes: Present: PERRL, EOM intact ENT: hearing intact, clear oral mucosa, dentition normal - Neck Neck: Present: supple, normal ROM - Respiratory Respiratory effort: normal Respiratory: bilateral: diminished, rhonchi - Cardiovascular Rhythm: regular Heart Sounds: Present: S1 & S2. Absent: gallop, rub - Extremities Extremities: no ischemia, No edema, Full ROM - Abdominal General gastrointestinal: soft, non-tender, non-distended, normal bowel sounds - Integumentary Integumentary: Present: clear, warm, dry - Neurologic Neurologic: CNII-XII intact, moves all extremities Results - Labs CBC & Chem 7: 08/13/16 06:01 08/13/16 06:01 Labs: Laboratory Last Values WBC 18.5 K/mm3 (4.5-11.0) H 08/13/16 06:01 RBC 3.70 M/mm3 (3.65-5.03) 08/13/16 06:01 Hgb 11.9 gm/dl (10.1-14.3) 08/13/16 06:01 Hct 35.8 % (30.3-42.9) 08/13/16 06:01 MCV 97 fl (79-97) 08/13/16 06:01 MCH 32 pg (28-32) 08/13/16 06:01 MCHC 33 % (30-34) 08/13/16 06:01 RDW 14.0 % (13.2-15.2) 08/13/16 06:01 Plt Count 265 K/mm3 (140-440) 08/13/16 06:01 Add Manual Diff Complete 08/13/16 06:01 Total Counted 100 08/13/16 06:01 Seg Neutrophils % Communications Agent 08/13/16 06:01 Seg Neuts % (Manual) 93.0 % (40.0-70.0) H 08/13/16 06:01 Band Neutrophils % 0 % 08/13/16 06:01 Lymphocytes % (Manual) 5.0 % (13.4-35.0) L 08/13/16 06:01 Reactive Lymphs % (Man) 0 % 08/13/16 06:01 Monocytes % (Manual) 1.0 % (0.0-7.3) 08/13/16 06:01 Eosinophils % (Manual) 1.0 % (0.0-4.3) 08/13/16 06:01 Basophils % (Manual) 0 % (0.0-1.8) 08/13/16 06:01 Metamyelocytes % 0 % 08/13/16 06:01 Myelocytes % 0 % 08/13/16 06:01 Promyelocytes % 0 % 08/13/16 06:01 Blast Cells % 0 % 08/13/16 06:01 Nucleated RBC % Not Reportable 08/13/16 06:01 Seg Neutrophils # Man 17.2 K/mm3 (1.8-7.7) H 08/13/16 06:01 Band Neutrophils # 0.0 K/mm3 08/13/16 06:01 Lymphocytes # (Manual) 0.9 K/mm3 (1.2-5.4) L 08/13/16 06:01 Abs React Lymphs (Man) 0.0 K/mm3 08/13/16 06:01 Monocytes # (Manual) 0.2 K/mm3 (0.0-0.8) 08/13/16 06:01 Eosinophils # (Manual) 0.2 K/mm3 (0.0-0.4) 08/13/16 06:01 Basophils # (Manual) 0.0 K/mm3 (0.0-0.1) 08/13/16 06:01 Metamyelocytes # 0.0 K/mm3 08/13/16 06:01 Myelocytes # 0.0 K/mm3 08/13/16 06:01 Promyelocytes # 0.0 K/mm3 08/13/16 06:01 Blast Cells # 0.0 K/mm3 08/13/16 06:01 WBC Morphology Not Reportable 08/13/16 06:01 Hypersegmented Neuts Not Reportable 08/13/16 06:01 Hyposegmented Neuts Not Reportable 08/13/16 06:01 Hypogranular Neuts Not Reportable 08/13/16 06:01 Smudge Cells Not Reportable 08/13/16 06:01 Toxic Granulation Not Reportable 08/13/16 06:01 Toxic Vacuolation Not Reportable 08/13/16 06:01 Dohle Bodies Not Reportable 08/13/16 06:01 Pelger-Huet Anomaly Not Reportable 08/13/16 06:01 Miya Rods Not Reportable 08/13/16 06:01 Platelet Estimate Appears normal 08/13/16 06:01 Clumped Platelets Not Reportable 08/13/16 06:01 Plt Clumps, EDTA Not Reportable 08/13/16 06:01 Large Platelets Not Reportable 08/13/16 06:01 Giant Platelets Not Reportable 08/13/16 06:01 Platelet Satelliting Not Reportable 08/13/16 06:01 Plt Morphology Comment Not Reportable 08/13/16 06:01 RBC Morphology Not Reportable 08/13/16 06:01 Dimorphic RBCs Not Reportable 08/13/16 06:01 Polychromasia Not Reportable 08/13/16 06:01 Hypochromasia Not Reportable 08/13/16 06:01 Poikilocytosis Not Reportable 08/13/16 06:01 Anisocytosis Few 08/13/16 06:01 Microcytosis Not Reportable 08/13/16 06:01 Macrocytosis Not Reportable 08/13/16 06:01 Spherocytes Not Reportable 08/13/16 06:01 Pappenheimer Bodies Not Reportable 08/13/16 06:01 Sickle Cells Not Reportable 08/13/16 06:01 Target Cells Not Reportable 08/13/16 06:01 Tear Drop Cells Not Reportable 08/13/16 06:01 Ovalocytes Not Reportable 08/13/16 06:01 Helmet Cells Not Reportable 08/13/16 06:01 [place] Bodies Not Reportable 08/13/16 06:01 Julian Rings Not Reportable 08/13/16 06:01 [place] Cells Not Reportable 08/13/16 06:01 Bite Cells Not Reportable 08/13/16 06:01 Crenated Cell Not Reportable 08/13/16 06:01 Elliptocytes Not Reportable 08/13/16 06:01 Acanthocytes (Spur) Not Reportable 08/13/16 06:01 Rouleaux Not Reportable 08/13/16 06:01 Hemoglobin C Crystals Not Reportable 08/13/16 06:01 Schistocytes Not Reportable 08/13/16 06:01 Malaria parasites Not Reportable 08/13/16 06:01 Juliocesar Bodies Not Reportable 08/13/16 06:01 Hem Pathologist Commnt No 08/13/16 06:01 PT 15.7 Sec. (12.2-14.9) H 08/11/16 05:13 INR 1.26 (0.87-1.13) H 08/11/16 05:13 APTT 31.6 Sec. (24.2-36.6) 08/11/16 05:13 POC ABG pH 7.388 (7.35-7.45) 08/14/16 06:44 POC ABG pCO2 47.5 (35-45) H 08/14/16 06:44 POC ABG pO2 104 (80-105) 08/14/16 06:44 POC ABG HCO3 28.6 08/14/16 06:44 POC ABG Total CO2 30 08/14/16 06:44 POC ABG O2 Sat 98 08/14/16 06:44 POC ABG Base Excess 4 08/14/16 06:44 FiO2 55 % 08/14/16 06:44 Sodium 145 mmol/L (137-145) 08/13/16 06:01 Potassium 3.5 mmol/L (3.6-5.0) L 08/13/16 06:01 Chloride 104.6 mmol/L (98-107) 08/13/16 06:01 Carbon Dioxide 28 mmol/L (22-30) 08/13/16 06:01 Anion Gap 16 mmol/L 08/13/16 06:01 BUN 16 mg/dL (7-17) 08/13/16 06:01 Creatinine 0.4 mg/dL (0.7-1.2) L 08/13/16 06:01 Estimated GFR > 60 ml/min 08/13/16 06:01 BUN/Creatinine Ratio 40.00 % 08/13/16 06:01 Glucose 132 mg/dL (65-100) H 08/13/16 06:01 Lactic Acid 1.7 mmol/L (0.7-2.0) 08/11/16 10:34 Calcium 7.6 mg/dL (8.4-10.2) L 08/13/16 06:01 Magnesium 1.8 mg/dL (1.7-2.3) 08/13/16 06:01 Total Creatine Kinase 106 units/L (30-135) 08/11/16 05:13 CK-MB (CK-2) 1.7 ng/mL (0.0-4.0) 08/11/16 05:13 CK-MB (CK-2) Rel Index 1.6 (0-4) 08/11/16 05:13 Troponin T < 0.010 ng/mL (0.00-0.029) 08/11/16 05:13 NT-Pro-B Natriuret Pep 623.4 pg/mL (0-900) 08/11/16 05:13 TSH 0.013 mlU/mL (0.270-4.200) L 08/11/16 05:13 Free T4 1.68 ng/dL (0.76-1.46) H 08/11/16 05:13
[2016-08-14] MEDS: VANCOMYCIN VIAL 750 MG in NACL 0.9% 250ML 250 ML IV SCH (15:00)
[2016-08-14] MEDS: SYNTHROID PO SCH (15:01)
[2016-08-14] MEDS: PROTONIX PO SCH (15:01)
[2016-08-14] MEDS: NORCO 5/325 PO PRN (19:07)
[2016-08-14] MEDS: ZOCOR PO SCH (21:54)
[2016-08-15] MEDS: DUONEB 0.5 MG-3 MG/3 ML SOLN IH SCH ×6 (00:49→19:31)
[2016-08-15 05:26] LABS: Hematocrit 29.8 % (30.3-42.9); Mean Corpuscular HGB Conc 34 % (30-34); Mean Corpuscular Hemoglobin 33 pg (28-32); Mean Corpuscular Volume 98 fl (79-97); Platelet Count 240 K/mm3 (140-440); Red Blood Count 3.04 M/mm3 (3.65-5.03); Red Cell Distribution Width 14.2 % (13.2-15.2); White Blood Count 9.9 K/mm3 (4.5-11.0)
[2016-08-15 05:50] LABS: Blood Urea Nitrogen 18 mg/dL (7-17); Calcium 7.9 mg/dL (8.4-10.2); Carbon Dioxide 30 mmol/L (22-30); Chloride 109.2 mmol/L (98-107); Glucose 225 mg/dL (65-100); Potassium 4.3 mmol/L (3.6-5.0); Sodium 147 mmol/L (137-145)
[2016-08-15 05:52] LABS: Anion Gap 12 mmol/L
[2016-08-15] MEDS: TESSALON PERLES PO SCH ×3 (06:05→21:15)
[2016-08-15] MEDS: ZOSYN/NS 4.5GM/100ML 100 ML IV SCH ×3 (06:05→21:23)
[2016-08-15] MEDS: PULMICORT IH SCH ×2 (07:41→19:31)
[2016-08-15] MEDS: BROVANA NEBU IH SCH ×2 (07:41→19:31)
[2016-08-15 07:46] LABS: Basophils % (Manual) 0 % (0.0-1.8); Blastocytes % (Manual) 0 %; Eosinophils % (Manual) 0 % (0.0-4.3)
[2016-08-15 07:47] LABS: Anisocytosis 1+; Diff Status Complete; Platelet Estimate Consistent w Auto
[2016-08-15] MEDS: SPIRIVA IH SCH (08:18)
[2016-08-15] MEDS: NORVASC PO SCH (10:29)
[2016-08-15] MEDS: LEVAQUIN PO SCH (10:29)
[2016-08-15] MEDS: PROTONIX PO SCH (10:29)
[2016-08-15] MEDS: SYNTHROID PO SCH (10:30)
--- NOTE | 2016-08-15 10:57 | Progress Note ---
Assessment and Plan 71 y/o female with acute on chronic respiratory failure thought secondary to pneumonia, possible hospital acquired infection given recent hospitalizations. 1. Continue broad spectrum abx therapy 2. Supplemental O2 3. CPAP PRN as tolerated. If needed for increase work of breathing and anxiety is an issues, suggest small dose of IV ativan to help. 4. Continue pulmicort, brovana and spiriva along with PRN neb treatments. STeroids started on yesterday. Will start to taper tomorrow or Monday pending patient clinical status. 5. Continue aspiration precautions. Will continue to follow. Subjective Date of service: 08/15/16 Principal diagnosis: COPD Exacerbation, hypoxemia respiratory failure Interval history: No acute events. Wore CPAP some last night but became slightly agitated with it on so removed. Stable on cannula. Breathing does not appear labored. Daughter at bedside. Objective Vital Signs - 12hr 08/15/16 08/15/16 08/15/16 00:00 00:45 00:49 Temperature 97.8 F Pulse Rate [ 95 H Anterior Bilateral Throughout] Pulse Rate [ 94 H 92 H Right Radial] Respiratory Rate Respiratory 20 Rate [Anterior Bilateral Throughout] Blood Pressure Blood Pressure 88/50 101/62 [Left Arm] O2 Sat by Pulse 95 Oximetry 08/15/16 08/15/16 08/15/16 00:55 07:35 08:02 Temperature Pulse Rate [ 93 H 88 104 H Anterior Bilateral Throughout] Pulse Rate [ Right Radial] Respiratory Rate Respiratory 18 20 20 Rate [Anterior Bilateral Throughout] Blood Pressure Blood Pressure [Left Arm] O2 Sat by Pulse 94 Oximetry 08/15/16 08/15/16 08/15/16 08:05 08:20 10:29 Temperature 97.6 F Pulse Rate [ Anterior Bilateral Throughout] Pulse Rate [ 86 Right Radial] Respiratory 20 Rate Respiratory Rate [Anterior Bilateral Throughout] Blood Pressure 115/68 Blood Pressure 114/58 [Left Arm] O2 Sat by Pulse 93 95 Oximetry Constitutional: no acute distress, alert, other (cachectic) Eyes: non-icteric ENT: oropharynx moist Neck: supple Effort: normal Ascultation: Left: rhonchi, Bilateral: diminished breath sounds Cardiovascular: other (tachy, RR; no mrg) Gastrointestinal: normoactive bowel sounds, soft, non-tender, non-distended Integumentary: normal Extremities: no cyanosis, no edema, pink and warm Neurologic: normal mental status, non-focal exam, pupils equal and round, CN II- XII normal Psychiatric: mood appropriate, affect normal CBC and BMP: 08/15/16 04:58 08/15/16 04:58 ABG, PT/INR, D-dimer: ABG POC ABG pH 7.388 (7.35-7.45) 08/14/16 06:44 POC ABG pCO2 47.5 (35-45) H 08/14/16 06:44 POC ABG pO2 104 (80-105) 08/14/16 06:44 POC ABG HCO3 28.6 08/14/16 06:44 POC ABG Total CO2 30 08/14/16 06:44 POC ABG O2 Sat 98 08/14/16 06:44 PT/INR, D-dimer PT 15.7 Sec. (12.2-14.9) H 08/11/16 05:13 INR 1.26 (0.87-1.13) H 08/11/16 05:13 Abnormal lab findings: Abnormal Labs 08/11/16 08/12/16 08/12/16 12:41 05:46 05:46 WBC 27.0 H RBC 3.50 L Hgb Hct MCV MCH Seg Neuts % (Manual) 89.0 H Lymphocytes % (Manual) 2.0 L Seg Neutrophils # Man 24.0 H Lymphocytes # (Manual) 0.5 L Monocytes # (Manual) 1.2 H POC ABG pCO2 POC ABG pO2 150 H Sodium Potassium Chloride BUN 23 H Creatinine 0.5 L Glucose 148 H Calcium 8.1 L 08/13/16 08/13/16 08/14/16 06:01 06:01 05:48 WBC 18.5 H RBC Hgb Hct MCV MCH Seg Neuts % (Manual) 93.0 H Lymphocytes % (Manual) 5.0 L Seg Neutrophils # Man 17.2 H Lymphocytes # (Manual) 0.9 L Monocytes # (Manual) POC ABG pCO2 51.5 H POC ABG pO2 48 L Sodium Potassium 3.5 L Chloride BUN Creatinine 0.4 L Glucose 132 H Calcium 7.6 L 08/14/16 08/15/16 08/15/16 06:44 04:58 04:58 WBC RBC 3.04 L Hgb 10.0 L Hct 29.8 L D MCV 98 H MCH 33 H Seg Neuts % (Manual) 92.0 H Lymphocytes % (Manual) 2.0 L Seg Neutrophils # Man 9.1 H Lymphocytes # (Manual) 0.2 L Monocytes # (Manual) POC ABG pCO2 47.5 H POC ABG pO2 Sodium 147 H Potassium Chloride 109.2 H BUN 18 H Creatinine 0.3 L Glucose 225 H Calcium 7.9 L
[2016-08-15] MEDS: NORCO 5/325 PO PRN ×2 (11:00→18:40)
--- NOTE | 2016-08-15 14:50 | Progress Note ---
Assessment and Plan Assessment and plan: Patient is a pleasant 71 YO Female with HTN, GERD, COPD, Hypothyroidism, Severe Malnutrition, chronic hypoxia on home O2 recently discharged from the hospital for COPD exacerbation presents to ED for evaluation. Pt states that she has been experiencing productive cough with increased sputum production and dyspnea for the past week. Pt symptoms have worsened over the past day. Pt acknowledge decreased ambulation due to shortness of breath. On admission the patient denies neck pain, chest pain, syncope, hemoptysis, abdominal pain, unilateral leg swelling, dysuria, diarrhea, rash, prolonged immobililty/travel, Individual/family history of DVT/PE. Disposition Plan: in a day or 2 - Patient Problems (1) Sepsis Current Visit: Yes Status: Acute Qualifiers: Sepsis type: sepsis due to unspecified organism Qualified Code(s): A41.9 - Sepsis, unspecified organism Plan to address problem: Continue IV antibiotics, monitor fever curve, leukocytosis improved (2) COPD with acute exacerbation Current Visit: Yes Status: Acute Plan to address problem: Continue steroid taper as tolerated, pulmonary input appreciated (3) Pneumonia Current Visit: Yes Status: Acute Qualifiers: Pneumonia type: due to unspecified organism Laterality: left Lung location: lower lobe of lung Qualified Code(s): J18.9 - Pneumonia, unspecified organism Plan to address problem: Continue antibiotics as noted above (4) Debility Current Visit: No Status: Acute Plan to address problem: We'll obtain physical therapy. Eventually (5) Leukocytosis Current Visit: No Status: Resolved Plan to address problem: Resolved (6) Tobacco abuse Current Visit: No Status: Acute (7) Hypertension Current Visit: No Status: Chronic Plan to address problem: Controlled (8) Cough Current Visit: Yes Status: Acute Plan to address problem: Likely secondary to tobacco abuse. will monitor. Encourage deep cough to help with lung expansion (9) Acute and chronic respiratory failure with hypoxia Current Visit: Yes Status: Acute Plan to address problem: Chronically on home oxygen. will continue to monitor. (10) Severe protein-calorie malnutrition Current Visit: Yes Status: Acute Plan to address problem: Grain Receiver consult History Interval history: Patient seen and examined this morning, still with persistent shortness of breath although mildly improved. Still with cough. Although patient states she has not smoked in a long while my understanding from the daughter says that the patient's still smokes and smokes around the patient. Denies any chest pain, nausea, vomiting, diarrhea No fever noted blood pressure controlled No adverse events reported to me by nursing staff Hospitalist Physical - Physical exam Narrative exam: VITAL SIGNS: Reviewed. GENERAL: The patient appeared cachectic but normally developed, cough and. Vital signs as documented. HEAD: No signs of head trauma, marked temporal wasting. EYES: Pupils are equal. Extraocular motions intact. EARS: Hearing grossly intact. MOUTH: Oropharynx is normal. NECK: No adenopathy, no JVD. CHEST: Chest with improved aeration on the left lobes but diminished on the right. No wheezes, rales, or rhonchi. CARDIAC: Regular rate and rhythm. S1 and S2, without murmurs, gallops, or rubs. VASCULAR: No Edema. Peripheral pulses normal and equal in all extremities. ABDOMEN: Soft, without detectable tenderness. No sign of distention. No rebound or guarding, and no masses palpated. Bowel Sounds normal. MUSCULOSKELETAL: Good range of motion of all major joints. Extremities without clubbing, cyanosis or edema. NEUROLOGIC EXAM: Alert and oriented x 3. Weak, although No focal sensory or strength deficits. Speech normal. Follows commands. PSYCHIATRIC: Mood normal. SKIN: Age-appropriate wrinkles and blemishes. - Constitutional Vitals: Temp Pulse Resp BP Pulse Ox 97.6 F 86 20 115/68 95 08/15/16 08:20 08/15/16 08:20 08/15/16 08:20 08/15/16 10:29 08/15/16 08:20 General appearance: Present: mild distress, other (on bipap) Results - Labs CBC & Chem 7: 08/15/16 04:58 08/15/16 04:58 Labs: Laboratory Last Values WBC 9.9 K/mm3 (4.5-11.0) 08/15/16 04:58 RBC 3.04 M/mm3 (3.65-5.03) L 08/15/16 04:58 Hgb 10.0 gm/dl (10.1-14.3) L 08/15/16 04:58 Hct 29.8 % (30.3-42.9) L D 08/15/16 04:58 MCV 98 fl (79-97) H 08/15/16 04:58 MCH 33 pg (28-32) H 08/15/16 04:58 MCHC 34 % (30-34) 08/15/16 04:58 RDW 14.2 % (13.2-15.2) 08/15/16 04:58 Plt Count 240 K/mm3 (140-440) 08/15/16 04:58 Add Manual Diff Complete 08/15/16 04:58 Total Counted 100 08/15/16 04:58 Seg Neutrophils % Finished Goods Stock Clerk 08/15/16 04:58 Seg Neuts % (Manual) 92.0 % (40.0-70.0) H 08/15/16 04:58 Band Neutrophils % 2.0 % 08/15/16 04:58 Lymphocytes % (Manual) 2.0 % (13.4-35.0) L 08/15/16 04:58 Reactive Lymphs % (Man) 0 % 08/15/16 04:58 Monocytes % (Manual) 4.0 % (0.0-7.3) 08/15/16 04:58 Eosinophils % (Manual) 0 % (0.0-4.3) 08/15/16 04:58 Basophils % (Manual) 0 % (0.0-1.8) 08/15/16 04:58 Metamyelocytes % 0 % 08/15/16 04:58 Myelocytes % 0 % 08/15/16 04:58 Promyelocytes % 0 % 08/15/16 04:58 Blast Cells % 0 % 08/15/16 04:58 Nucleated RBC % Not Reportable 08/15/16 04:58 Seg Neutrophils # Man 9.1 K/mm3 (1.8-7.7) H 08/15/16 04:58 Band Neutrophils # 0.2 K/mm3 08/15/16 04:58 Lymphocytes # (Manual) 0.2 K/mm3 (1.2-5.4) L 08/15/16 04:58 Abs React Lymphs (Man) 0.0 K/mm3 08/15/16 04:58 Monocytes # (Manual) 0.4 K/mm3 (0.0-0.8) 08/15/16 04:58 Eosinophils # (Manual) 0.0 K/mm3 (0.0-0.4) 08/15/16 04:58 Basophils # (Manual) 0.0 K/mm3 (0.0-0.1) 08/15/16 04:58 Metamyelocytes # 0.0 K/mm3 08/15/16 04:58 Myelocytes # 0.0 K/mm3 08/15/16 04:58 Promyelocytes # 0.0 K/mm3 08/15/16 04:58 Blast Cells # 0.0 K/mm3 08/15/16 04:58 WBC Morphology Not Reportable 08/15/16 04:58 Hypersegmented Neuts Not Reportable 08/15/16 04:58 Hyposegmented Neuts Not Reportable 08/15/16 04:58 Hypogranular Neuts Not Reportable 08/15/16 04:58 Smudge Cells Not Reportable 08/15/16 04:58 Toxic Granulation Not Reportable 08/15/16 04:58 Toxic Vacuolation Not Reportable 08/15/16 04:58 Dohle Bodies Not Reportable 08/15/16 04:58 Pelger-Huet Anomaly Not Reportable 08/15/16 04:58 Miya Rods Not Reportable 08/15/16 04:58 Platelet Estimate Consistent w auto 08/15/16 04:58 Clumped Platelets Not Reportable 08/15/16 04:58 Plt Clumps, EDTA Not Reportable 08/15/16 04:58 Large Platelets Not Reportable 08/15/16 04:58 Giant Platelets Not Reportable 08/15/16 04:58 Platelet Satelliting Not Reportable 08/15/16 04:58 Plt Morphology Comment Not Reportable 08/15/16 04:58 RBC Morphology Not Reportable 08/15/16 04:58 Dimorphic RBCs Not Reportable 08/15/16 04:58 Polychromasia Not Reportable 08/15/16 04:58 Hypochromasia Not Reportable 08/15/16 04:58 Poikilocytosis Not Reportable 08/15/16 04:58 Anisocytosis 1+ 08/15/16 04:58 Microcytosis Not Reportable 08/15/16 04:58 Macrocytosis Not Reportable 08/15/16 04:58 Spherocytes Not Reportable 08/15/16 04:58 Pappenheimer Bodies Not Reportable 08/15/16 04:58 Sickle Cells Not Reportable 08/15/16 04:58 Target Cells Not Reportable 08/15/16 04:58 Tear Drop Cells Not Reportable 08/15/16 04:58 Ovalocytes Not Reportable 08/15/16 04:58 Helmet Cells Not Reportable 08/15/16 04:58 [place] Bodies Not Reportable 08/15/16 04:58 [place] Rings Not Reportable 08/15/16 04:58 [place] Cells Not Reportable 08/15/16 04:58 Bite Cells Not Reportable 08/15/16 04:58 Crenated Cell Not Reportable 08/15/16 04:58 Elliptocytes Not Reportable 08/15/16 04:58 Acanthocytes (Spur) Not Reportable 08/15/16 04:58 Rouleaux Not Reportable 08/15/16 04:58 Hemoglobin C Crystals Not Reportable 08/15/16 04:58 Schistocytes Not Reportable 08/15/16 04:58 Malaria parasites Not Reportable 08/15/16 04:58 Juliocesar Bodies Not Reportable 08/15/16 04:58 Hem Pathologist Commnt No 08/15/16 04:58 PT 15.7 Sec. (12.2-14.9) H 08/11/16 05:13 INR 1.26 (0.87-1.13) H 08/11/16 05:13 APTT 31.6 Sec. (24.2-36.6) 08/11/16 05:13 POC ABG pH 7.388 (7.35-7.45) 08/14/16 06:44 POC ABG pCO2 47.5 (35-45) H 08/14/16 06:44 POC ABG pO2 104 (80-105) 08/14/16 06:44 POC ABG HCO3 28.6 08/14/16 06:44 POC ABG Total CO2 30 08/14/16 06:44 POC ABG O2 Sat 98 08/14/16 06:44 POC ABG Base Excess 4 08/14/16 06:44 FiO2 55 % 08/14/16 06:44 Sodium 147 mmol/L (137-145) H 08/15/16 04:58 Potassium 4.3 mmol/L (3.6-5.0) D 08/15/16 04:58 Chloride 109.2 mmol/L (98-107) H 08/15/16 04:58 Carbon Dioxide 30 mmol/L (22-30) 08/15/16 04:58 Anion Gap 12 mmol/L 08/15/16 04:58 BUN 18 mg/dL (7-17) H 08/15/16 04:58 Creatinine 0.3 mg/dL (0.7-1.2) L 08/15/16 04:58 Estimated GFR > 60 ml/min 08/15/16 04:58 BUN/Creatinine Ratio 60.00 % 08/15/16 04:58 Glucose 225 mg/dL (65-100) H 08/15/16 04:58 Lactic Acid 1.7 mmol/L (0.7-2.0) 08/11/16 10:34 Calcium 7.9 mg/dL (8.4-10.2) L 08/15/16 04:58 Magnesium 1.8 mg/dL (1.7-2.3) 08/13/16 06:01 Total Creatine Kinase 106 units/L (30-135) 08/11/16 05:13 CK-MB (CK-2) 1.7 ng/mL (0.0-4.0) 08/11/16 05:13 CK-MB (CK-2) Rel Index 1.6 (0-4) 08/11/16 05:13 Troponin T < 0.010 ng/mL (0.00-0.029) 08/11/16 05:13 NT-Pro-B Natriuret Pep 623.4 pg/mL (0-900) 08/11/16 05:13 TSH 0.013 mlU/mL (0.270-4.200) L 08/11/16 05:13 Free T4 1.68 ng/dL (0.76-1.46) H 08/11/16 05:13 Vancomycin Trough 1.8 ug/mL (5.0-20.0) L 08/15/16 12:57 Active Medications Acetaminophen (Tylenol) 650 mg PO Q4H PRN PRN Reason: Pain MILD(1-3)/Fever >100.5/GARNER Last Admin: 08/12/16 17:57 Dose: 650 mg Acetaminophen/Hydrocodone Bitart ([place] 5/325) 1 each PO Q6H PRN PRN Reason: Pain, Moderate (4-6) Last Admin: 08/15/16 11:00 Dose: 1 each Albuterol (Proventil) 2.5 mg IH Q4HRT PRN PRN Reason: Shortness Of Breath Last Admin: 08/14/16 05:03 Dose: 2.5 mg Albuterol/Ipratropium (Duoneb 0.5 Mg-3 Mg/3 Ml Soln) 1 ampul IH Q4HRT [facility] Last Admin: 08/15/16 13:28 Dose: Not Given Amlodipine Besylate (Norvasc) 10 mg PO QAM [facility] Last Admin: 08/15/16 10:29 Dose: 10 mg Arformoterol Tartrate (Brovana Nebu) 15 mcg IH Q12HRT [facility] Last Admin: 08/15/16 07:41 Dose: 15 mcg Benzonatate (Tessalon Perles) 100 mg PO Q8HR [facility] Last Admin: 08/15/16 13:34 Dose: 100 mg Budesonide (Pulmicort) 0.5 mg IH Q12HRT [facility] Last Admin: 08/15/16 07:41 Dose: 0.5 mg Sodium Chloride (Nacl 0.9% 1000 Ml) 1,000 mls @ 125 mls/hr IV DIRECT [facility] Last Admin: 08/14/16 06:09 Dose: 125 mls/hr Piperacillin Sod/Tazobactam Sod (Zosyn/Ns 4.5gm/100ml) 100 mls @ 100 mls/30 min IV Q8HR [facility] PRN Reason: Protocol Last Admin: 08/15/16 13:33 Dose: 100 mls/30 min Vancomycin HCl (Vancomycin/Ns 1 Gm/250 Ml) 250 mls @ 166.667 mls/hr IV Q8HR [facility] Levofloxacin (Levaquin) 750 mg PO Q48HR [facility] Last Admin: 08/15/16 10:29 Dose: 750 mg Levothyroxine Sodium (Synthroid) 100 mcg PO QAM [facility] Last Admin: 08/15/16 10:30 Dose: 100 mcg Lorazepam (Ativan) 2 mg PO QHS PRN PRN Reason: Sleep Last Admin: 08/14/16 02:06 Dose: 2 mg Methylprednisolone Sodium Succinate (Solu-Medrol) 40 mg IV Q8HR [facility] Ondansetron HCl (Zofran) 4 mg IV Q8H PRN PRN Reason: N/V unrelieved by Reglan Pantoprazole Sodium (Protonix) 40 mg PO QDAY [facility] Last Admin: 08/15/16 10:29 Dose: 40 mg Simvastatin (Zocor) 20 mg PO QHS [facility] Last Admin: 08/14/16 21:54 Dose: 20 mg Tiotropium [place] (Spiriva) 1 puff IH Q24HRT [facility] Last Admin: 08/15/16 08:18 Dose: Not Given Vancomycin HCl (Vancomycin Pharmacy To Dose) 1 each IV PKCONSULT [facility] PRN Reason: Protocol Microbiology 08/13/16 06:01 Blood Culture - Preliminary Peripheral/Venous NO GROWTH AFTER 48 HOURS 08/13/16 08:56 Blood Culture - Preliminary Peripheral/Venous NO GROWTH AFTER 48 HOURS 08/11/16 05:13 Blood Culture - Preliminary Peripheral/Venous NO GROWTH AFTER 4 DAYS 08/11/16 05:13 Blood Culture - Preliminary Peripheral/Venous NO GROWTH AFTER 4 DAYS - Imaging and Cardiology Chest x-ray: image reviewed (left lower lobe infiltrate noted by me)
[2016-08-15] MEDS: VANCOMYCIN/NS 1 GM/250 ML 250 ML IV SCH ×2 (17:12→21:14)
[2016-08-15] MEDS: VANCOMYCIN VIAL 750 MG in NACL 0.9% 250ML 250 ML IV SCH (17:13)
[2016-08-15] MEDS: NACL 0.9% 1000 ML 1,000 ML IV SCH (17:23)
[2016-08-15] MEDS: ZOCOR PO SCH (21:15)
[2016-08-15] MEDS: ATIVAN PO PRN (21:23)
[2016-08-16] MEDS: DUONEB 0.5 MG-3 MG/3 ML SOLN IH SCH ×6 (00:19→20:10)
[2016-08-16] MEDS: NORCO 5/325 PO PRN ×3 (00:20→17:32)
[2016-08-16] MEDS: VANCOMYCIN/NS 1 GM/250 ML 250 ML IV SCH ×3 (05:26→22:43)
[2016-08-16] MEDS: TESSALON PERLES PO SCH ×4 (05:27→22:15)
[2016-08-16] MEDS: ZOSYN/NS 4.5GM/100ML 100 ML IV SCH ×3 (05:27→22:15)
[2016-08-16] MEDS: PULMICORT IH SCH ×2 (07:18→20:10)
[2016-08-16] MEDS: BROVANA NEBU IH SCH ×2 (07:19→20:09)
[2016-08-16] MEDS: SPIRIVA IH SCH (07:34)
--- NOTE | 2016-08-16 08:23 | Progress Note ---
Assessment and Plan 71 y/o female with acute on chronic respiratory failure thought secondary to pneumonia, possible hospital acquired infection given recent hospitalizations. 1. Continue broad spectrum abx therapy 2. Supplemental O2 3. CPAP PRN as tolerated. If needed for increase work of breathing and anxiety is an issues, suggest small dose of IV ativan to help. 4. Continue pulmicort, brovana and spiriva along with PRN neb treatments. STeroids started on yesterday. Steroids changed last night by primary team 5. Continue aspiration precautions. Will continue to follow. Subjective Date of service: 08/16/16 Principal diagnosis: COPD Exacerbation, hypoxemia respiratory failure Interval history: No acute events. Steroids changed yesterday. Appears to be tolerating well. Remainder is negative. No family at bedside yet. Objective Vital Signs - 12hr 08/15/16 08/15/16 08/16/16 21:00 21:38 00:00 Temperature 98.1 F Pulse Rate Pulse Rate [ 96 H Anterior Bilateral Bases ] Pulse Rate [ 83 Apical] Pulse Rate [ 82 Right Radial] Respiratory 23 18 Rate Respiratory 16 Rate [Anterior Bilateral Bases ] Respiratory 18 Rate [Back] Blood Pressure 98/59 [Left Arm] O2 Sat by Pulse Oximetry 08/16/16 08/16/16 08/16/16 00:20 00:25 00:30 Temperature Pulse Rate 96 H Pulse Rate [ 92 H Anterior Bilateral Bases ] Pulse Rate [ Apical] Pulse Rate [ Right Radial] Respiratory 20 27 H Rate Respiratory 20 Rate [Anterior Bilateral Bases ] Respiratory Rate [Back] Blood Pressure [Left Arm] O2 Sat by Pulse 99 Oximetry 08/16/16 08/16/16 08/16/16 01:20 04:00 07:21 Temperature 97.7 F Pulse Rate Pulse Rate [ 88 Anterior Bilateral Bases ] Pulse Rate [ Apical] Pulse Rate [ 86 Right Radial] Respiratory 20 18 Rate Respiratory 18 Rate [Anterior Bilateral Bases ] Respiratory Rate [Back] Blood Pressure 101/56 [Left Arm] O2 Sat by Pulse 94 Oximetry 08/16/16 08/16/16 07:30 07:34 Temperature 96.8 F L Pulse Rate Pulse Rate [ 89 Anterior Bilateral Bases ] Pulse Rate [ Apical] Pulse Rate [ 104 H Right Radial] Respiratory 18 Rate Respiratory 18 Rate [Anterior Bilateral Bases ] Respiratory Rate [Back] Blood Pressure 142/83 [Left Arm] O2 Sat by Pulse 97 Oximetry Constitutional: no acute distress, alert, other (cachectic) Eyes: non-icteric ENT: oropharynx moist Neck: supple Effort: normal Ascultation: Left: rhonchi, Bilateral: diminished breath sounds Cardiovascular: other (tachy, RR; no mrg) Gastrointestinal: normoactive bowel sounds, soft, non-tender, non-distended Integumentary: normal Extremities: no cyanosis, no edema, pink and warm Neurologic: normal mental status, non-focal exam, pupils equal and round, CN II- XII normal Psychiatric: mood appropriate, affect normal CBC and BMP: 08/15/16 04:58 08/15/16 04:58 ABG, PT/INR, D-dimer: ABG POC ABG pH 7.388 (7.35-7.45) 08/14/16 06:44 POC ABG pCO2 47.5 (35-45) H 08/14/16 06:44 POC ABG pO2 104 (80-105) 08/14/16 06:44 POC ABG HCO3 28.6 08/14/16 06:44 POC ABG Total CO2 30 08/14/16 06:44 POC ABG O2 Sat 98 08/14/16 06:44 PT/INR, D-dimer PT 15.7 Sec. (12.2-14.9) H 08/11/16 05:13 INR 1.26 (0.87-1.13) H 08/11/16 05:13 Abnormal lab findings: Abnormal Labs 08/11/16 08/12/16 08/12/16 12:41 05:46 05:46 WBC 27.0 H RBC 3.50 L Hgb Hct MCV MCH Seg Neuts % (Manual) 89.0 H Lymphocytes % (Manual) 2.0 L Seg Neutrophils # Man 24.0 H Lymphocytes # (Manual) 0.5 L Monocytes # (Manual) 1.2 H POC ABG pCO2 POC ABG pO2 150 H Sodium Potassium Chloride BUN 23 H Creatinine 0.5 L Glucose 148 H Calcium 8.1 L Vancomycin Trough 08/13/16 08/13/16 08/14/16 06:01 06:01 05:48 WBC 18.5 H RBC Hgb Hct MCV MCH Seg Neuts % (Manual) 93.0 H Lymphocytes % (Manual) 5.0 L Seg Neutrophils # Man 17.2 H Lymphocytes # (Manual) 0.9 L Monocytes # (Manual) POC ABG pCO2 51.5 H POC ABG pO2 48 L Sodium Potassium 3.5 L Chloride BUN Creatinine 0.4 L Glucose 132 H Calcium 7.6 L Vancomycin Trough 08/14/16 08/15/16 08/15/16 06:44 04:58 04:58 WBC RBC 3.04 L Hgb 10.0 L Hct 29.8 L D MCV 98 H MCH 33 H Seg Neuts % (Manual) 92.0 H Lymphocytes % (Manual) 2.0 L Seg Neutrophils # Man 9.1 H Lymphocytes # (Manual) 0.2 L Monocytes # (Manual) POC ABG pCO2 47.5 H POC ABG pO2 Sodium 147 H Potassium Chloride 109.2 H BUN 18 H Creatinine 0.3 L Glucose 225 H Calcium 7.9 L Vancomycin Trough 08/15/16 12:57 WBC RBC Hgb Hct MCV MCH Seg Neuts % (Manual) Lymphocytes % (Manual) Seg Neutrophils # Man Lymphocytes # (Manual) Monocytes # (Manual) POC ABG pCO2 POC ABG pO2 Sodium Potassium Chloride BUN Creatinine Glucose Calcium Vancomycin Trough 1.8 L
[2016-08-16] MEDS: NORVASC PO SCH (09:51)
[2016-08-16] MEDS: SYNTHROID PO SCH (09:51)
[2016-08-16] MEDS: PROTONIX PO SCH (09:52)
[2016-08-16] MEDS: NACL 0.9% 1000 ML 1,000 ML IV SCH (13:18)
--- NOTE | 2016-08-16 17:45 | Progress Note ---
Assessment and Plan - Patient Problems (1) Sepsis Current Visit: Yes Status: Acute Qualifiers: Sepsis type: sepsis due to unspecified organism Qualified Code(s): A41.9 - Sepsis, unspecified organism Plan to address problem: IV abx, IVF, supportive care, blood cultures, serial lactate levels (2) COPD with acute exacerbation Current Visit: Yes Status: Acute Plan to address problem: supplemental oxygen, nebs, supportive care. (3) Pneumonia Current Visit: Yes Status: Acute Qualifiers: Pneumonia type: due to unspecified organism Laterality: left Lung location: lower lobe of lung Qualified Code(s): J18.9 - Pneumonia, unspecified organism Plan to address problem: Pneumonia protocol: IV abx, blood cultures, nebs, aspiration precautions, pulmonary toilet (4) Acute respiratory failure Current Visit: No Status: Acute Plan to address problem: NIPPN as clinically indicated, supplemental oxygen, nebs, incentive spirometry prn. (5) Hypothyroidism Current Visit: No Status: Chronic Plan to address problem: resume current therapy. (6) Debility Current Visit: No Status: Acute Plan to address problem: PT consulted. (7) DVT prophylaxis Current Visit: No Status: Acute History Interval history: Pt resting in bed, No reported nursing events. Pt lying in bed, Pt chronically ill appearing. Pt complains of weakness. Hospitalist Physical - Constitutional Vitals: Temp Pulse Resp BP Pulse Ox 98.5 F 92 H 18 103/55 96 08/16/16 14:48 08/16/16 16:00 08/16/16 16:00 08/16/16 14:48 08/16/16 14:48 General appearance: Present: mild distress, other (on bipap) - EENT Eyes: Present: PERRL - Neck Neck: Present: supple - Respiratory Respiratory: bilateral: diminished - Cardiovascular Rhythm: regular Heart Sounds: Present: S1 & S2 - Extremities Extremities: no ischemia Peripheral Pulses: within normal limits - Abdominal General gastrointestinal: soft, non-tender, non-distended - Integumentary Integumentary: Present: clear, dry, decreased turgor - Psychiatric Psychiatric: cooperative - Neurologic Neurologic: CNII-XII intact Results - Labs CBC & Chem 7: 08/15/16 04:58 08/15/16 04:58 Labs: Laboratory Last Values WBC 9.9 K/mm3 (4.5-11.0) 08/15/16 04:58 RBC 3.04 M/mm3 (3.65-5.03) L 08/15/16 04:58 Hgb 10.0 gm/dl (10.1-14.3) L 08/15/16 04:58 Hct 29.8 % (30.3-42.9) L D 08/15/16 04:58 MCV 98 fl (79-97) H 08/15/16 04:58 MCH 33 pg (28-32) H 08/15/16 04:58 MCHC 34 % (30-34) 08/15/16 04:58 RDW 14.2 % (13.2-15.2) 08/15/16 04:58 Plt Count 240 K/mm3 (140-440) 08/15/16 04:58 Add Manual Diff Complete 08/15/16 04:58 Total Counted 100 08/15/16 04:58 Seg Neutrophils % Top Inventory Control Executive 08/15/16 04:58 Seg Neuts % (Manual) 92.0 % (40.0-70.0) H 08/15/16 04:58 Band Neutrophils % 2.0 % 08/15/16 04:58 Lymphocytes % (Manual) 2.0 % (13.4-35.0) L 08/15/16 04:58 Reactive Lymphs % (Man) 0 % 08/15/16 04:58 Monocytes % (Manual) 4.0 % (0.0-7.3) 08/15/16 04:58 Eosinophils % (Manual) 0 % (0.0-4.3) 08/15/16 04:58 Basophils % (Manual) 0 % (0.0-1.8) 08/15/16 04:58 Metamyelocytes % 0 % 08/15/16 04:58 Myelocytes % 0 % 08/15/16 04:58 Promyelocytes % 0 % 08/15/16 04:58 Blast Cells % 0 % 08/15/16 04:58 Nucleated RBC % Not Reportable 08/15/16 04:58 Seg Neutrophils # Man 9.1 K/mm3 (1.8-7.7) H 08/15/16 04:58 Band Neutrophils # 0.2 K/mm3 08/15/16 04:58 Lymphocytes # (Manual) 0.2 K/mm3 (1.2-5.4) L 08/15/16 04:58 Abs React Lymphs (Man) 0.0 K/mm3 08/15/16 04:58 Monocytes # (Manual) 0.4 K/mm3 (0.0-0.8) 08/15/16 04:58 Eosinophils # (Manual) 0.0 K/mm3 (0.0-0.4) 08/15/16 04:58 Basophils # (Manual) 0.0 K/mm3 (0.0-0.1) 08/15/16 04:58 Metamyelocytes # 0.0 K/mm3 08/15/16 04:58 Myelocytes # 0.0 K/mm3 08/15/16 04:58 Promyelocytes # 0.0 K/mm3 08/15/16 04:58 Blast Cells # 0.0 K/mm3 08/15/16 04:58 WBC Morphology Not Reportable 08/15/16 04:58 Hypersegmented Neuts Not Reportable 08/15/16 04:58 Hyposegmented Neuts Not Reportable 08/15/16 04:58 Hypogranular Neuts Not Reportable 08/15/16 04:58 Smudge Cells Not Reportable 08/15/16 04:58 Toxic Granulation Not Reportable 08/15/16 04:58 Toxic Vacuolation Not Reportable 08/15/16 04:58 Dohle Bodies Not Reportable 08/15/16 04:58 Pelger-Huet Anomaly Not Reportable 08/15/16 04:58 Miya Rods Not Reportable 08/15/16 04:58 Platelet Estimate Consistent w auto 08/15/16 04:58 Clumped Platelets Not Reportable 08/15/16 04:58 Plt Clumps, EDTA Not Reportable 08/15/16 04:58 Large Platelets Not Reportable 08/15/16 04:58 Giant Platelets Not Reportable 08/15/16 04:58 Platelet Satelliting Not Reportable 08/15/16 04:58 Plt Morphology Comment Not Reportable 08/15/16 04:58 RBC Morphology Not Reportable 08/15/16 04:58 Dimorphic RBCs Not Reportable 08/15/16 04:58 Polychromasia Not Reportable 08/15/16 04:58 Hypochromasia Not Reportable 08/15/16 04:58 Poikilocytosis Not Reportable 08/15/16 04:58 Anisocytosis 1+ 08/15/16 04:58 Microcytosis Not Reportable 08/15/16 04:58 Macrocytosis Not Reportable 08/15/16 04:58 Spherocytes Not Reportable 08/15/16 04:58 Pappenheimer Bodies Not Reportable 08/15/16 04:58 Sickle Cells Not Reportable 08/15/16 04:58 Target Cells Not Reportable 08/15/16 04:58 Tear Drop Cells Not Reportable 08/15/16 04:58 Ovalocytes Not Reportable 08/15/16 04:58 Helmet Cells Not Reportable 08/15/16 04:58 [place] Bodies Not Reportable 08/15/16 04:58 [place] Rings Not Reportable 08/15/16 04:58 [place] Cells Not Reportable 08/15/16 04:58 Bite Cells Not Reportable 08/15/16 04:58 Crenated Cell Not Reportable 08/15/16 04:58 Elliptocytes Not Reportable 08/15/16 04:58 Acanthocytes (Spur) Not Reportable 08/15/16 04:58 Rouleaux Not Reportable 08/15/16 04:58 Hemoglobin C Crystals Not Reportable 08/15/16 04:58 Schistocytes Not Reportable 08/15/16 04:58 Malaria parasites Not Reportable 08/15/16 04:58 Juliocesar Bodies Not Reportable 08/15/16 04:58 Hem Pathologist Commnt No 08/15/16 04:58 PT 15.7 Sec. (12.2-14.9) H 08/11/16 05:13 INR 1.26 (0.87-1.13) H 08/11/16 05:13 APTT 31.6 Sec. (24.2-36.6) 08/11/16 05:13 POC ABG pH 7.388 (7.35-7.45) 08/14/16 06:44 POC ABG pCO2 47.5 (35-45) H 08/14/16 06:44 POC ABG pO2 104 (80-105) 08/14/16 06:44 POC ABG HCO3 28.6 08/14/16 06:44 POC ABG Total CO2 30 08/14/16 06:44 POC ABG O2 Sat 98 01/15/17 06:44 POC ABG Base Excess 4 08/14/16 06:44 FiO2 55 % 08/14/16 06:44 Sodium 147 mmol/L (137-145) H 08/15/16 04:58 Potassium 4.3 mmol/L (3.6-5.0) D 08/15/16 04:58 Chloride 109.2 mmol/L (98-107) H 08/15/16 04:58 Carbon Dioxide 30 mmol/L (22-30) 08/15/16 04:58 Anion Gap 12 mmol/L 08/15/16 04:58 BUN 18 mg/dL (7-17) H 08/15/16 04:58 Creatinine 0.3 mg/dL (0.7-1.2) L 08/15/16 04:58 Estimated GFR > 60 ml/min 08/15/16 04:58 BUN/Creatinine Ratio 60.00 % 08/15/16 04:58 Glucose 225 mg/dL (65-100) H 08/15/16 04:58 Lactic Acid 1.7 mmol/L (0.7-2.0) 08/11/16 10:34 Calcium 7.9 mg/dL (8.4-10.2) L 08/15/16 04:58 Magnesium 1.8 mg/dL (1.7-2.3) 08/13/16 06:01 Total Creatine Kinase 106 units/L (30-135) 08/11/16 05:13 CK-MB (CK-2) 1.7 ng/mL (0.0-4.0) 08/11/16 05:13 CK-MB (CK-2) Rel Index 1.6 (0-4) 08/11/16 05:13 Troponin T < 0.010 ng/mL (0.00-0.029) 08/11/16 05:13 NT-Pro-B Natriuret Pep 623.4 pg/mL (0-900) 08/11/16 05:13 TSH 0.013 mlU/mL (0.270-4.200) L 08/11/16 05:13 Free T4 1.68 ng/dL (0.76-1.46) H 08/11/16 05:13 Vancomycin Trough 13.4 ug/mL (5.0-20.0) 08/16/16 12:53
[2016-08-16] MEDS: ZOCOR PO SCH (22:15)
[2016-08-16] MEDS: ATIVAN PO PRN (23:06)
[2016-08-17] MEDS: DUONEB 0.5 MG-3 MG/3 ML SOLN IH SCH ×4 (00:57→16:15)
[2016-08-17] MEDS: ZOSYN/NS 4.5GM/100ML 100 ML IV SCH ×3 (05:48→23:29)
[2016-08-17] MEDS: TESSALON PERLES PO SCH ×3 (05:49→23:31)
[2016-08-17] MEDS: VANCOMYCIN/NS 1 GM/250 ML 250 ML IV SCH ×3 (06:18→23:28)
[2016-08-17] MEDS: PROTONIX PO SCH (09:13)
[2016-08-17] MEDS: LEVAQUIN PO SCH (09:13)
[2016-08-17] MEDS: NORVASC PO SCH (09:14)
[2016-08-17] MEDS: PULMICORT IH SCH ×2 (09:22→19:34)
[2016-08-17] MEDS: BROVANA NEBU IH SCH ×2 (09:23→19:34)
[2016-08-17] MEDS: SPIRIVA IH SCH (13:04)
[2016-08-17] MEDS: SYNTHROID PO SCH (13:06)
[2016-08-17] MEDS: PROVENTIL IH PRN ×2 (13:10→16:24)
[2016-08-17] MEDS: NACL 0.9% 1000 ML 1,000 ML IV SCH (14:18)
--- NOTE | 2016-08-17 15:12 | Progress Note ---
Assessment and Plan 71 y/o female with acute on chronic respiratory failure thought secondary to pneumonia, possible hospital acquired infection given recent hospitalizations. 1. Continue broad spectrum abx therapy, will need a total of 7 days 2. Supplemental O2 3. CPAP PRN as tolerated. If needed for increase work of breathing and anxiety is an issues, suggest small dose of IV ativan to help. 4. Continue pulmicort, brovana and spiriva along with PRN neb treatments. Decreased steroids to 40q12 today 5. Continue aspiration precautions. 6. Per daughter going to nursing facility soon. At discharge will need prolonged steroid taper, 60x4, 40x4, 20x4, 10x4 then stop. Can follow up with Dr. Hilton as an outpatient. Will continue to follow. Subjective Date of service: 08/17/16 Principal diagnosis: COPD Exacerbation, hypoxemia respiratory failure Interval history: No acute events. Rolled in Wheel chair today. Had some dizziness with standing. Daughter at bedside. Objective Vital Signs - 12hr 08/17/16 08/17/16 08/17/16 07:29 09:20 09:35 Temperature 97.8 F Pulse Rate [ 82 90 Anterior Bilateral Bases ] Pulse Rate [ 98 H 96 H Anterior Bilateral Throughout] Pulse Rate [ 87 Right Radial] Respiratory 14 Rate Respiratory 20 20 Rate [Anterior Bilateral Bases ] Respiratory 22 20 Rate [Anterior Bilateral Throughout] Blood Pressure 110/64 [Left Arm] O2 Sat by Pulse 96 Oximetry 08/17/16 08/17/16 08/17/16 10:00 11:16 13:10 Temperature 97.8 F Pulse Rate [ 98 H Anterior Bilateral Bases ] Pulse Rate [ 98 H Anterior Bilateral Throughout] Pulse Rate [ 91 H Right Radial] Respiratory 16 Rate Respiratory 20 Rate [Anterior Bilateral Bases ] Respiratory 18 Rate [Anterior Bilateral Throughout] Blood Pressure 113/56 [Left Arm] O2 Sat by Pulse 95 95 Oximetry 08/17/16 08/17/16 13:35 14:39 Temperature 97.8 F Pulse Rate [ 102 H Anterior Bilateral Bases ] Pulse Rate [ 102 H Anterior Bilateral Throughout] Pulse Rate [ 96 H Right Radial] Respiratory 14 Rate Respiratory 22 Rate [Anterior Bilateral Bases ] Respiratory 20 Rate [Anterior Bilateral Throughout] Blood Pressure 123/58 [Left Arm] O2 Sat by Pulse 96 Oximetry Constitutional: no acute distress, alert, other (cachectic) Eyes: non-icteric ENT: oropharynx moist Neck: supple Effort: normal Ascultation: Left: rhonchi, Bilateral: diminished breath sounds Cardiovascular: other (tachy, RR; no mrg) Gastrointestinal: normoactive bowel sounds, soft, non-tender, non-distended Integumentary: normal Extremities: no cyanosis, no edema, pink and warm Neurologic: normal mental status, non-focal exam, pupils equal and round, CN II- XII normal Psychiatric: mood appropriate, affect normal CBC and BMP: 08/15/16 04:58 08/15/16 04:58 ABG, PT/INR, D-dimer: ABG POC ABG pH 7.388 (7.35-7.45) 08/14/16 06:44 POC ABG pCO2 47.5 (35-45) H 08/14/16 06:44 POC ABG pO2 104 (80-105) 08/14/16 06:44 POC ABG HCO3 28.6 08/14/16 06:44 POC ABG Total CO2 30 08/14/16 06:44 POC ABG O2 Sat 98 08/14/16 06:44 PT/INR, D-dimer PT 15.7 Sec. (12.2-14.9) H 08/11/16 05:13 INR 1.26 (0.87-1.13) H 08/11/16 05:13 Abnormal lab findings: Abnormal Labs 08/11/16 08/12/16 08/12/16 12:41 05:46 05:46 WBC 27.0 H RBC 3.50 L Hgb Hct MCV MCH Seg Neuts % (Manual) 89.0 H Lymphocytes % (Manual) 2.0 L Seg Neutrophils # Man 24.0 H Lymphocytes # (Manual) 0.5 L Monocytes # (Manual) 1.2 H POC ABG pCO2 POC ABG pO2 150 H Sodium Potassium Chloride BUN 23 H Creatinine 0.5 L Glucose 148 H Calcium 8.1 L Vancomycin Trough 08/13/16 08/13/16 08/14/16 06:01 06:01 05:48 WBC 18.5 H RBC Hgb Hct MCV MCH Seg Neuts % (Manual) 93.0 H Lymphocytes % (Manual) 5.0 L Seg Neutrophils # Man 17.2 H Lymphocytes # (Manual) 0.9 L Monocytes # (Manual) POC ABG pCO2 51.5 H POC ABG pO2 48 L Sodium Potassium 3.5 L Chloride BUN Creatinine 0.4 L Glucose 132 H Calcium 7.6 L Vancomycin Trough 08/14/16 08/15/16 08/15/16 06:44 04:58 04:58 WBC RBC 3.04 L Hgb 10.0 L Hct 29.8 L D MCV 98 H MCH 33 H Seg Neuts % (Manual) 92.0 H Lymphocytes % (Manual) 2.0 L Seg Neutrophils # Man 9.1 H Lymphocytes # (Manual) 0.2 L Monocytes # (Manual) POC ABG pCO2 47.5 H POC ABG pO2 Sodium 147 H Potassium Chloride 109.2 H BUN 18 H Creatinine 0.3 L Glucose 225 H Calcium 7.9 L Vancomycin Trough 08/15/16 12:57 WBC RBC Hgb Hct MCV MCH Seg Neuts % (Manual) Lymphocytes % (Manual) Seg Neutrophils # Man Lymphocytes # (Manual) Monocytes # (Manual) POC ABG pCO2 POC ABG pO2 Sodium Potassium Chloride BUN Creatinine Glucose Calcium Vancomycin Trough 1.8 L
[2016-08-17] MEDS: TYLENOL PO PRN (17:17)
[2016-08-17] MEDS: ZOCOR PO SCH (23:30)
[2016-08-18] MEDS: NORCO 5/325 PO PRN ×3 (00:31→21:06)
[2016-08-18] MEDS: ATIVAN PO PRN (00:33)
[2016-08-18] MEDS: ZOSYN/NS 4.5GM/100ML 100 ML IV SCH ×3 (06:02→21:06)
[2016-08-18] MEDS: VANCOMYCIN/NS 1 GM/250 ML 250 ML IV SCH ×2 (06:08→13:49)
[2016-08-18] MEDS: TESSALON PERLES PO SCH ×3 (06:11→21:06)
[2016-08-18] MEDS: SYNTHROID PO SCH (06:11)
[2016-08-18] MEDS: PROVENTIL IH PRN ×2 (07:44→14:50)
[2016-08-18] MEDS: PULMICORT IH SCH ×2 (07:44→20:05)
[2016-08-18] MEDS: DUONEB 0.5 MG-3 MG/3 ML SOLN IH SCH ×6 (07:47→20:40)
--- NOTE | 2016-08-18 08:00 | Progress Note ---
Assessment and Plan - Patient Problems (1) Sepsis Current Visit: Yes Status: Acute Qualifiers: Sepsis type: sepsis due to unspecified organism Qualified Code(s): A41.9 - Sepsis, unspecified organism Plan to address problem: IV abx, IVF, supportive care, blood cultures, serial lactate levels (2) COPD with acute exacerbation Current Visit: Yes Status: Acute Plan to address problem: supplemental oxygen, nebs, supportive care. (3) Pneumonia Current Visit: Yes Status: Acute Qualifiers: Pneumonia type: due to unspecified organism Laterality: left Lung location: lower lobe of lung Qualified Code(s): J18.9 - Pneumonia, unspecified organism Plan to address problem: Pneumonia protocol: IV abx, blood cultures, nebs, aspiration precautions, pulmonary toilet (4) Acute respiratory failure Current Visit: No Status: Acute Plan to address problem: NIPPN as clinically indicated, supplemental oxygen, nebs, incentive spirometry prn. (5) Hypothyroidism Current Visit: No Status: Chronic Plan to address problem: resume current therapy. (6) Debility Current Visit: No Status: Acute Plan to address problem: PT consulted. (7) DVT prophylaxis Current Visit: No Status: Acute History Interval history: Pt resting in bed, No reported nursing events. Pt lying in bed, Pt chronically ill appearing. Pt complains of weakness. Case management consulted regarding D/ C planning/ Placement Hospitalist Physical - Constitutional Vitals: Temp Pulse Resp BP Pulse Ox 97.8 F 74 16 139/69 97 08/18/16 07:55 08/18/16 07:55 08/18/16 07:55 08/18/16 07:55 08/18/16 07:55 General appearance: Present: mild distress, cachectic, other (on bipap) - EENT Eyes: Present: PERRL ENT: hearing intact - Neck Neck: Present: supple - Respiratory Respiratory: bilateral: diminished - Cardiovascular Rhythm: regular Heart Sounds: Present: S1 & S2 - Extremities Extremities: no ischemia Peripheral Pulses: within normal limits - Abdominal General gastrointestinal: soft, non-tender, non-distended - Integumentary Integumentary: Present: clear, dry, decreased turgor - Psychiatric Psychiatric: cooperative - Neurologic Neurologic: CNII-XII intact, no gait normal Results - Labs CBC & Chem 7: 08/15/16 04:58 08/15/16 04:58 Labs: Laboratory Last Values WBC 9.9 K/mm3 (4.5-11.0) 08/15/16 04:58 RBC 3.04 M/mm3 (3.65-5.03) L 08/15/16 04:58 Hgb 10.0 gm/dl (10.1-14.3) L 08/15/16 04:58 Hct 29.8 % (30.3-42.9) L D 08/15/16 04:58 MCV 98 fl (79-97) H 08/15/16 04:58 MCH 33 pg (28-32) H 08/15/16 04:58 MCHC 34 % (30-34) 08/15/16 04:58 RDW 14.2 % (13.2-15.2) 08/15/16 04:58 Plt Count 240 K/mm3 (140-440) 08/15/16 04:58 Add Manual Diff Complete 08/15/16 04:58 Total Counted 100 08/15/16 04:58 Seg Neutrophils % Benchroom Shop Optician 08/15/16 04:58 Seg Neuts % (Manual) 92.0 % (40.0-70.0) H 08/15/16 04:58 Band Neutrophils % 2.0 % 08/15/16 04:58 Lymphocytes % (Manual) 2.0 % (13.4-35.0) L 08/15/16 04:58 Reactive Lymphs % (Man) 0 % 08/15/16 04:58 Monocytes % (Manual) 4.0 % (0.0-7.3) 08/15/16 04:58 Eosinophils % (Manual) 0 % (0.0-4.3) 08/15/16 04:58 Basophils % (Manual) 0 % (0.0-1.8) 08/15/16 04:58 Metamyelocytes % 0 % 08/15/16 04:58 Myelocytes % 0 % 08/15/16 04:58 Promyelocytes % 0 % 08/15/16 04:58 Blast Cells % 0 % 08/15/16 04:58 Nucleated RBC % Not Reportable 08/15/16 04:58 Seg Neutrophils # Man 9.1 K/mm3 (1.8-7.7) H 08/15/16 04:58 Band Neutrophils # 0.2 K/mm3 08/15/16 04:58 Lymphocytes # (Manual) 0.2 K/mm3 (1.2-5.4) L 08/15/16 04:58 Abs React Lymphs (Man) 0.0 K/mm3 08/15/16 04:58 Monocytes # (Manual) 0.4 K/mm3 (0.0-0.8) 08/15/16 04:58 Eosinophils # (Manual) 0.0 K/mm3 (0.0-0.4) 08/15/16 04:58 Basophils # (Manual) 0.0 K/mm3 (0.0-0.1) 08/15/16 04:58 Metamyelocytes # 0.0 K/mm3 08/15/16 04:58 Myelocytes # 0.0 K/mm3 08/15/16 04:58 Promyelocytes # 0.0 K/mm3 08/15/16 04:58 Blast Cells # 0.0 K/mm3 08/15/16 04:58 WBC Morphology Not Reportable 08/15/16 04:58 Hypersegmented Neuts Not Reportable 08/15/16 04:58 Hyposegmented Neuts Not Reportable 08/15/16 04:58 Hypogranular Neuts Not Reportable 08/15/16 04:58 Smudge Cells Not Reportable 08/15/16 04:58 Toxic Granulation Not Reportable 08/15/16 04:58 Toxic Vacuolation Not Reportable 08/15/16 04:58 Dohle Bodies Not Reportable 08/15/16 04:58 Pelger-Huet Anomaly Not Reportable 08/15/16 04:58 Miya Rods Not Reportable 08/15/16 04:58 Platelet Estimate Consistent w auto 08/15/16 04:58 Clumped Platelets Not Reportable 08/15/16 04:58 Plt Clumps, EDTA Not Reportable 08/15/16 04:58 Large Platelets Not Reportable 08/15/16 04:58 Giant Platelets Not Reportable 08/15/16 04:58 Platelet Satelliting Not Reportable 08/15/16 04:58 Plt Morphology Comment Not Reportable 08/15/16 04:58 RBC Morphology Not Reportable 08/15/16 04:58 Dimorphic RBCs Not Reportable 08/15/16 04:58 Polychromasia Not Reportable 08/15/16 04:58 Hypochromasia Not Reportable 08/15/16 04:58 Poikilocytosis Not Reportable 08/15/16 04:58 Anisocytosis 1+ 08/15/16 04:58 Microcytosis Not Reportable 08/15/16 04:58 Macrocytosis Not Reportable 08/15/16 04:58 Spherocytes Not Reportable 08/15/16 04:58 Pappenheimer Bodies Not Reportable 08/15/16 04:58 Sickle Cells Not Reportable 08/15/16 04:58 Target Cells Not Reportable 08/15/16 04:58 Tear Drop Cells Not Reportable 08/15/16 04:58 Ovalocytes Not Reportable 08/15/16 04:58 Helmet Cells Not Reportable 08/15/16 04:58 Wagoner-[place] Bodies Not Reportable 08/15/16 04:58 [place] Rings Not Reportable 08/15/16 04:58 Martin Cells Not Reportable 08/15/16 04:58 Bite Cells Not Reportable 08/15/16 04:58 Crenated Cell Not Reportable 08/15/16 04:58 Elliptocytes Not Reportable 08/15/16 04:58 Acanthocytes (Spur) Not Reportable 08/15/16 04:58 Rouleaux Not Reportable 08/15/16 04:58 Hemoglobin C Crystals Not Reportable 08/15/16 04:58 Schistocytes Not Reportable 08/15/16 04:58 Malaria parasites Not Reportable 08/15/16 04:58 Juliocesar Bodies Not Reportable 08/15/16 04:58 Hem Pathologist Commnt No 08/15/16 04:58 PT 15.7 Sec. (12.2-14.9) H 08/11/16 05:13 INR 1.26 (0.87-1.13) H 08/11/16 05:13 APTT 31.6 Sec. (24.2-36.6) 08/11/16 05:13 POC ABG pH 7.388 (7.35-7.45) 08/14/16 06:44 POC ABG pCO2 47.5 (35-45) H 08/14/16 06:44 POC ABG pO2 104 (80-105) 08/14/16 06:44 POC ABG HCO3 28.6 08/14/16 06:44 POC ABG Total CO2 30 08/14/16 06:44 POC ABG O2 Sat 98 08/14/16 06:44 POC ABG Base Excess 4 08/14/16 06:44 FiO2 55 % 08/14/16 06:44 Sodium 147 mmol/L (137-145) H 08/15/16 04:58 Potassium 4.3 mmol/L (3.6-5.0) D 08/15/16 04:58 Chloride 109.2 mmol/L (98-107) H 08/15/16 04:58 Carbon Dioxide 30 mmol/L (22-30) 08/15/16 04:58 Anion Gap 12 mmol/L 08/15/16 04:58 BUN 18 mg/dL (7-17) H 08/15/16 04:58 Creatinine 0.3 mg/dL (0.7-1.2) L 08/15/16 04:58 Estimated GFR > 60 ml/min 08/15/16 04:58 BUN/Creatinine Ratio 60.00 % 08/15/16 04:58 Glucose 225 mg/dL (65-100) H 08/15/16 04:58 Lactic Acid 1.7 mmol/L (0.7-2.0) 08/11/16 10:34 Calcium 7.9 mg/dL (8.4-10.2) L 08/15/16 04:58 Magnesium 1.8 mg/dL (1.7-2.3) 08/13/16 06:01 Total Creatine Kinase 106 units/L (30-135) 08/11/16 05:13 CK-MB (CK-2) 1.7 ng/mL (0.0-4.0) 08/11/16 05:13 CK-MB (CK-2) Rel Index 1.6 (0-4) 08/11/16 05:13 Troponin T < 0.010 ng/mL (0.00-0.029) 08/11/16 05:13 NT-Pro-B Natriuret Pep 623.4 pg/mL (0-900) 08/11/16 05:13 TSH 0.013 mlU/mL (0.270-4.200) L 08/11/16 05:13 Free T4 1.68 ng/dL (0.76-1.46) H 08/11/16 05:13 Vancomycin Trough 13.4 ug/mL (5.0-20.0) 08/16/16 12:53
--- NOTE | 2016-08-18 08:52 | Progress Note ---
Assessment and Plan 71 y/o female with acute on chronic respiratory failure thought secondary to pneumonia, possible hospital acquired infection given recent hospitalizations. 1. Continue broad spectrum abx therapy, will need a total of 7 days. Today appears to be day 7 so can stop after today's dosing 2. Supplemental O2 3. Will discontinue CPAP therapy 4. Continue pulmicort, brovana and spiriva along with PRN neb treatments. Steroids at 40q13 5. Continue aspiration precautions. 6. Per daughter going to nursing facility soon. At discharge will need prolonged steroid taper, 60x4, 40x4, 20x4, 10x4 then stop. Can follow up with Dr. Hilton as an outpatient. Will continue to follow. Subjective Date of service: 08/18/16 Principal diagnosis: COPD Exacerbation, hypoxemia respiratory failure Interval history: No acute events. Breathing is good again this am. No family currently at bedside. Per patient, awaiting discharge to rehab or some other facility. Objective Vital Signs - 12hr 08/17/16 08/17/16 08/17/16 21:00 21:41 22:00 Temperature 98.0 F Pulse Rate 91 H Pulse Rate [ Left Radial] Pulse Rate [ 78 86 Right Radial] Respiratory 20 20 22 Rate Blood Pressure 119/58 [Left Arm] O2 Sat by Pulse 94 94 96 Oximetry 08/18/16 08/18/16 00:00 07:55 Temperature 98.4 F 97.8 F Pulse Rate Pulse Rate [ 74 Left Radial] Pulse Rate [ 90 Right Radial] Respiratory 22 16 Rate Blood Pressure 124/56 139/69 [Left Arm] O2 Sat by Pulse 95 97 Oximetry Constitutional: no acute distress, alert, other (cachectic) Eyes: non-icteric ENT: oropharynx moist Neck: supple Effort: normal Ascultation: Left: rhonchi, Bilateral: diminished breath sounds Cardiovascular: other (tachy, RR; no mrg) Gastrointestinal: normoactive bowel sounds, soft, non-tender, non-distended Integumentary: normal Extremities: no cyanosis, no edema, pink and warm Neurologic: normal mental status, non-focal exam, pupils equal and round, CN II- XII normal Psychiatric: mood appropriate, affect normal CBC and BMP: 08/15/16 04:58 08/15/16 04:58 ABG, PT/INR, D-dimer: ABG POC ABG pH 7.388 (7.35-7.45) 08/14/16 06:44 POC ABG pCO2 47.5 (35-45) H 08/14/16 06:44 POC ABG pO2 104 (80-105) 08/14/16 06:44 POC ABG HCO3 28.6 08/14/16 06:44 POC ABG Total CO2 30 08/14/16 06:44 POC ABG O2 Sat 98 08/14/16 06:44 PT/INR, D-dimer PT 15.7 Sec. (12.2-14.9) H 08/11/16 05:13 INR 1.26 (0.87-1.13) H 08/11/16 05:13 Abnormal lab findings: Abnormal Labs 08/11/16 08/12/16 08/12/16 12:41 05:46 05:46 WBC 27.0 H RBC 3.50 L Hgb Hct MCV MCH Seg Neuts % (Manual) 89.0 H Lymphocytes % (Manual) 2.0 L Seg Neutrophils # Man 24.0 H Lymphocytes # (Manual) 0.5 L Monocytes # (Manual) 1.2 H POC ABG pCO2 POC ABG pO2 150 H Sodium Potassium Chloride BUN 23 H Creatinine 0.5 L Glucose 148 H Calcium 8.1 L Vancomycin Trough 08/13/16 08/13/16 08/14/16 06:01 06:01 05:48 WBC 18.5 H RBC Hgb Hct MCV MCH Seg Neuts % (Manual) 93.0 H Lymphocytes % (Manual) 5.0 L Seg Neutrophils # Man 17.2 H Lymphocytes # (Manual) 0.9 L Monocytes # (Manual) POC ABG pCO2 51.5 H POC ABG pO2 48 L Sodium Potassium 3.5 L Chloride BUN Creatinine 0.4 L Glucose 132 H Calcium 7.6 L Vancomycin Trough 08/14/16 08/15/16 08/15/16 06:44 04:58 04:58 WBC RBC 3.04 L Hgb 10.0 L Hct 29.8 L D MCV 98 H MCH 33 H Seg Neuts % (Manual) 92.0 H Lymphocytes % (Manual) 2.0 L Seg Neutrophils # Man 9.1 H Lymphocytes # (Manual) 0.2 L Monocytes # (Manual) POC ABG pCO2 47.5 H POC ABG pO2 Sodium 147 H Potassium Chloride 109.2 H BUN 18 H Creatinine 0.3 L Glucose 225 H Calcium 7.9 L Vancomycin Trough 08/15/16 12:57 WBC RBC Hgb Hct MCV MCH Seg Neuts % (Manual) Lymphocytes % (Manual) Seg Neutrophils # Man Lymphocytes # (Manual) Monocytes # (Manual) POC ABG pCO2 POC ABG pO2 Sodium Potassium Chloride BUN Creatinine Glucose Calcium Vancomycin Trough 1.8 L
[2016-08-18] MEDS: SPIRIVA IH SCH (09:36)
[2016-08-18] MEDS: PROTONIX PO SCH (10:32)
[2016-08-18] MEDS: NORVASC PO SCH (10:32)
[2016-08-18] MEDS: NACL 0.9% 1000 ML 1,000 ML IV SCH (10:34)
[2016-08-18] MEDS: BROVANA NEBU IH SCH ×2 (13:02→20:05)
--- NOTE | 2016-08-18 17:06 | Discharge Summary ---
Providers - Providers Date of Admission: 08/11/16 07:03 Attending physician: AGUSTIN NICHOLS 08/12/16 10:40 Consult to Physician [CONS] Routine Consulting Provider: PATRICA ODOM Reason For Exam: pna, copd, resp failure Place consult to:: DR. ODOM Notified:: OFFICE Phone number called:: [phone] Was contact made?: Yes If yes, spoke with:: FABIO Time called:: 11:08 Comment:: DAVID NOTIFIED 08/15/16 14:50 Occupational Therapy Evaluate and Treat [CONS] Routine Comment: Reason For Exam: debility Physical Therapy Evaluation and Treat [CONS] Routine Comment: Reason For Exam: debility Primary care physician: PRODUCT DEVELOPMENT ECOLOGIST Hospitalization Condition: Serious Hospital course: 71 YO Female admitted for Pneumonia, Sepsis, complicated by COPD Exacerbation and Acute hypoxemic resiratory failure. Pt was admitted to ICU and treated IAW sepsis and pneumonia protocols. Pt treated with NIPPV, nebs, supplemental oxygen and supportive care. Pulmonary team consulted. Pt was symptoms improved with supportive care. Sepsis and pneumonia resolved as well and exacerbtion of COPD. Pt subsequently transferred to medical floor. Pulmonary team consulted. Pt medically optimized. Pt convalesced fair during hospital course. Pt found to have debility, and malnutrition. PT consulted, and pt encouraged to increase protein intake. Pt evaluated prior to discharge but no significant new physical exam findings since admission. Pt discharged to SNF under care of anesthesiology medical doctor. 35 minutes dedicated to patient discharge. Disposition: DC/TX SNF W [facility] CERT - Discharge Diagnoses (1) Sepsis Status: Acute Qualifiers: Sepsis type: sepsis due to unspecified organism Qualified Code(s): A41.9 - Sepsis, unspecified organism (2) COPD with acute exacerbation Status: Acute (3) Pneumonia Status: Acute Qualifiers: Pneumonia type: due to unspecified organism Laterality: left Lung location: lower lobe of lung Qualified Code(s): J18.9 - Pneumonia, unspecified organism (4) Acute respiratory failure Status: Acute (5) Hypothyroidism Status: Chronic (6) Debility Status: Acute (7) DVT prophylaxis Status: Acute Core Measure Documentation - Palliative Care Palliative Care/ Comfort Measures: Not Applicable - Core Measures Any of the following diagnoses?: none Exam - Constitutional Vitals: Temp Pulse Resp BP Pulse Ox 97.4 F L 86 16 108/53 95 08/18/16 15:47 08/18/16 15:47 08/18/16 15:47 08/18/16 15:47 08/18/16 15:47 General appearance: Present: no acute distress - EENT Eyes: Present: PERRL ENT: hearing intact, clear oral mucosa - Neck Neck: Present: supple - Respiratory Respiratory: bilateral: diminished - Cardiovascular Rhythm: regular Heart Sounds: Present: S1 & S2 Peripheral Pulses: within normal limits - Abdominal General gastrointestinal: Present: soft, non-tender, non-distended. Absent: hepatomegaly, splenomegaly - Integumentary Integumentary: Present: clear, dry - Musculoskeletal Musculoskeletal: generalized weakness - Psychiatric Psychiatric: cooperative - Neurologic Neurologic: no gait normal Plan Activity: advance as tolerated Follow up with: PRIMARY CARE, [Primary Care Provider] - 3-5 Days
[2016-08-18] MEDS: ZOCOR PO SCH (21:06)
[2016-08-18 22:36] VITALS: BP 109/60
== END 2016-08-18 22:30 | DRG 871 ==
LOC: ED 04:09 → 3A 07:03
PROVIDERS: ADMIT Internal Medicine; ATTEND Internal Medicine
PROC: 4A033R1 Measurement of Arterial Saturation, Peripheral, Percutaneous Approach (ICD-10-PCS; 2016-08-11)
PROC: 5A09457 Assistance with Respiratory Ventilation, 24-96 Consecutive Hours, Continuous Positive Airway Pressure (ICD-10-PCS; principal; 2016-08-14)
PROC: 4A033R1 Measurement of Arterial Saturation, Peripheral, Percutaneous Approach (ICD-10-PCS; 2016-08-14)
DX: A41.9 Sepsis, unspecified organism (principal); J96.00 Acute respiratory failure, unspecified whether with hypoxia or hypercapnia; J18.9 Pneumonia, unspecified organism; E43 Unspecified severe protein-calorie malnutrition; J96.21 Acute and chronic respiratory failure with hypoxia; J44.1 Chronic obstructive pulmonary disease with (acute) exacerbation; J44.0 Chronic obstructive pulmonary disease with (acute) lower respiratory infection; R64 Cachexia; Z68.1 Body mass index [BMI] 19.9 or less, adult; I10 Essential (primary) hypertension; K21.9 Gastro-esophageal reflux disease without esophagitis; M19.90 Unspecified osteoarthritis, unspecified site; E03.9 Hypothyroidism, unspecified; R13.12 Dysphagia, oropharyngeal phase; F17.200 Nicotine dependence, unspecified, uncomplicated; Z90.49 Acquired absence of other specified parts of digestive tract; Z90.710 Acquired absence of both cervix and uterus; Z98.890 Other specified postprocedural states; Z79.899 Other long term (current) drug therapy; Z82.49 Family history of ischemic heart disease and other diseases of the circulatory system; Z99.81 Dependence on supplemental oxygen
CPT/HCPCS: 31720; 36415; 36600; 71010; 80048; 80202; 82140; 82550; 82553; 82803; 83735; 83880; 84439; 84443; 84484; 85007; 85025; 85610; 85730; 87040; 93005; 93010; 94640; 94660; 94760; 96361; 96365; 96366; 96367; 96368; G8978-GP; G8979-GP; G8987-GO; G8988-GO; J1940; J1956; J2543; J2920; J2930; J3370; J3475; J7030; J7040; J7050

== ENCOUNTER 2017-02-01 08:23 | Outpatient (CLI) | payer MEDICARE | END 2017-02-01 08:24 | disposition home or self-care (01) | LOC: NM 08:23 | PROVIDERS: ATTEND Specialist | DX: E05.20 Thyrotoxicosis with toxic multinodular goiter without thyrotoxic crisis or storm (principal); I10 Essential (primary) hypertension; E78.00 Pure hypercholesterolemia, unspecified; J44.9 Chronic obstructive pulmonary disease, unspecified; E03.9 Hypothyroidism, unspecified; F41.9 Anxiety disorder, unspecified; Z87.891 Personal history of nicotine dependence | CPT/HCPCS: 78012; A9516 ==

== ENCOUNTER 2017-02-13 09:39 | Outpatient (CLI) | payer MEDICARE ==
--- NOTE | 2017-02-14 16:03 | Nuclear Medicine Report ---
Nuclear medicine thyroid scan and uptake. History: Hyperthyroidism. Findings: The study was performed after the oral administration of 300 microcuries of I-123. The 4 hour uptake measures 2.9% and the 24 hour uptake measures 5.5% both of which are markedly decreased. Images of the thyroid are suboptimal due to diminished uptake. There appears to be a mass with diminished activity in the lower pole of the right lobe of the thyroid. Impression: 1. Decreased uptake values as described. 2. Probable mass with diminished activity in the lower pole of the right lobe of the thyroid. Correlation with other imaging modalities may be useful in further evaluation of this finding.
== END 2017-02-13 09:40 | disposition home or self-care (01) ==
LOC: NM 09:39
PROVIDERS: ATTEND Specialist
DX: E05.20 Thyrotoxicosis with toxic multinodular goiter without thyrotoxic crisis or storm (principal); I10 Essential (primary) hypertension; E78.00 Pure hypercholesterolemia, unspecified; J44.9 Chronic obstructive pulmonary disease, unspecified; J18.9 Pneumonia, unspecified organism; E03.9 Hypothyroidism, unspecified; D64.9 Anemia, unspecified; F41.9 Anxiety disorder, unspecified; Z87.891 Personal history of nicotine dependence
CPT/HCPCS: 78012; A9516

== ENCOUNTER 2017-07-26 14:13 | Inpatient (IN) | payer MEDICARE ==
--- NOTE | 2017-07-26 15:36 | XRay Report ---
ROUTINE CHEST, TWO VIEWS: HISTORY: Shortness of breath. Advanced emphysematous changes are identified. The lungs are clear. No pleural effusion or pneumothorax. Heart and mediastinal structures are within normal limits. Left lung infiltrate has resolved since 08/11/16 exam. IMPRESSION: Advanced emphysema. No acute process identified.
[2017-07-26 16:07] LABS: Basophils # (Auto) 0.1 K/mm3 (0.0-0.1); Basophils % (Auto) 0.6 % (0.0-1.8); Eosinophils # (Auto) 0.4 K/mm3 (0.0-0.4); Eosinophils % (Auto) 4.3 % (0.0-4.3); Hematocrit 42.8 % (30.3-42.9); Hemoglobin 14.1 gm/dl (10.1-14.3); Lymphocytes # (Auto) 1.4 K/mm3 (1.2-5.4); Lymphocytes % (Auto) 16.1 % (13.4-35.0); Mean Corpuscular HGB Conc 33 % (30-34); Mean Corpuscular Hemoglobin 32 pg (28-32); Mean Corpuscular Volume 98 fl (79-97); Monocytes # (Auto) 0.2 K/mm3 (0.0-0.8); Monocytes % (Auto) 2.6 % (0.0-7.3); Platelet Count 204 K/mm3 (140-440); Red Blood Count 4.37 M/mm3 (3.65-5.03); Red Cell Distribution Width 12.3 % (13.2-15.2)
--- NOTE | 2017-07-26 16:11 | Emergency Department Report ---
HPI - General Chief Complaint: Dyspnea/Respdistress Time Seen by Provider: 07/26/17 14:50 - HPI HPI: This is a 9-year-old female presents to the emergency department from home with complaint of a three-day history of some shortness of breath. The patient has a history of COPD and is on 2 L oxygen by nasal cannula. She arrived by EMS and received some albuterol breathing treatments and 125 mg of Solu-Medrol in route. She also has a past medical history of arthritis, GERD, hypertension and has thyromegaly. She says that she believes the thyroid is pushing back on "my windpipe." Patient previously was on hospice secondary to her COPD but came off of hospice the summer. She is getting a new primary care physician but her data coordinator is Dr. Drew. She has some intermittent chest pains but denies any back pain, nausea, vomiting or diaphoresis. No recent travel or sick contacts at home. ED Past Medical Hx - Past Medical History Previous Medical History?: Yes Hx Hypertension: Yes Hx Heart Attack/AMI: No Hx Congestive Heart Failure: No Hx Diabetes: No Hx Deep Vein Thrombosis: No Hx Pulmonary Embolism: No Hx GERD: Yes Hx Liver Disease: No Hx Renal Disease: No Hx Sickle Cell Disease: No Hx Arthritis: Yes Hx Kidney Stones: No Hx Asthma: No Hx COPD: Yes Hx Tuberculosis: No Hx HIV: No Additional medical history: Hypothyrodism, hx of ulcers. - Surgical History Past Surgical History?: Yes Hx Coronary Stent: No Hx Open Heart Surgery: No Hx Pacemaker: No Hx Internal Defibrillator: No Hx Cholecystectomy: Yes Hx Appendectomy: Yes Hx Breast Surgery: Yes Additional Surgical History: hysterectomy, L ear surgery, pancreas, - Social History Smoking Status: Never Smoker Substance Use Type: None - Medications Home Medications: Home Medications Medication Instructions Recorded Confirmed Last Taken Type Amlodipine Besylate 10 mg PO QAM 07/29/16 07/26/17 07/26/17 History LORazepam [LORazepam] 2 mg PO QHS PRN 07/29/16 07/26/17 07/26/17 History Simvastatin 20 mg PO QHS 07/29/16 07/26/17 07/26/17 History Pantoprazole [Protonix TAB] 40 mg PO QDAY #30 tablet 08/03/16 07/26/17 07/26/17 Rx Diphenoxylate HCl/Atropine 1 each PO DAILY 06/02/17 07/26/17 07/26/17 History [Diphenoxylate-Atrop 2.5-0.025] Propranolol [Inderal] 10 mg PO BID 06/02/17 07/26/17 07/26/17 History predniSONE [Deltasone] 10 mg PO QDAY 06/02/17 07/26/17 07/26/17 History ALBUTEROL NEB's [Proventil] 2.5 mg IH QID 07/26/17 07/26/17 Unknown History Benzonatate [Tessalon Perles] 100 mg PO Q8HR PRN 07/26/17 07/26/17 Unknown History Oxycodone HCl/Acetaminophen 1 each PO Q6HR PRN 07/26/17 07/26/17 Unknown History [Percocet 7.5/325 mg] Potassium Gluconate 500 mg PO QDAY 07/26/17 07/26/17 07/26/17 History ED Review of Systems ROS: Stated complaint: AMANDA Other details as noted in HPI Comment: All other systems reviewed and negative Constitutional: denies: chills, fever Eyes: denies: eye pain, eye discharge, vision change ENT: denies: ear pain, congestion Respiratory: cough, shortness of breath, wheezing Cardiovascular: chest pain. denies: palpitations Gastrointestinal: denies: abdominal pain, nausea, diarrhea Genitourinary: denies: urgency, dysuria, discharge Musculoskeletal: denies: back pain, joint swelling, arthralgia Skin: denies: rash, lesions Neurological: denies: headache, weakness, paresthesias Physical Exam - Physical Exam Vital Signs: Vital Signs 07/26/17 07/26/17 07/26/17 14:19 14:26 14:30 Temperature 98.1 F Pulse Rate 81 80 Respiratory 18 16 Rate Blood Pressure 121/63 114/66 O2 Sat by Pulse 94 94 96 Oximetry 07/26/17 07/26/17 07/26/17 15:00 15:30 15:56 Temperature Pulse Rate 79 76 Respiratory 16 18 16 Rate Blood Pressure 104/53 114/65 O2 Sat by Pulse 98 97 98 Oximetry 07/26/17 16:00 Temperature Pulse Rate 73 Respiratory 16 Rate Blood Pressure 119/63 O2 Sat by Pulse 98 Oximetry Physical Exam: GENERAL: The patient is well-developed well-nourished. HENT: Normocephalic. Atraumatic. Patient has moist mucous membranes. EYES: Extraocular motions are intact. Pupils equal reactive to light bilaterally. NECK: Supple. Trachea is midline. CHEST/LUNGS: There is some wheezing throughout the chest. Dry cough heard during examination. No tachypnea or accessory muscle use. There is no respiratory distress noted. HEART/CARDIOVASCULAR: Regular. There is no tachycardia. There is no murmur. ABDOMEN: Abdomen is soft, nontender. Patient has normal bowel sounds. There is no abdominal distention. SKIN: Skin is warm and dry. NEURO: The patient is awake, alert, and oriented. The patient is cooperative. The patient has no focal neurologic deficits. The patient has normal speech. MUSCULOSKELETAL: There is no tenderness or deformity. There is no limitation range of motion. There is no evidence of acute injury. ED Course Vital Signs 07/26/17 07/26/17 07/26/17 14:19 14:26 14:30 Temperature 98.1 F Pulse Rate 81 80 Respiratory 18 16 Rate Blood Pressure 121/63 114/66 O2 Sat by Pulse 94 94 96 Oximetry 07/26/17 07/26/17 07/26/17 15:00 15:30 15:56 Temperature Pulse Rate 79 76 Respiratory 16 18 16 Rate Blood Pressure 104/53 114/65 O2 Sat by Pulse 98 97 98 Oximetry 07/26/17 16:00 Temperature Pulse Rate 73 Respiratory 16 Rate Blood Pressure 119/63 O2 Sat by Pulse 98 Oximetry - ABG Interpretation Ph: 7.316 PCO2: 61 PO2: 99 Bicarbonate: 31 Interpretation: respiratory acidosis ED Medical Decision Making - Lab Data Result diagrams: 07/26/17 Unknown 07/26/17 14:31 - EKG Data -: EKG Interpreted by Me EKG shows normal: sinus rhythm, axis, intervals, QRS complexes (right bundle- branch block, left anterior fascicular block), ST-T waves Rate: normal - EKG Data When compared to previous EKG there are: no significant change Interpretation: unchanged when compared t (08/19/16) - Radiology Data Radiology results: report reviewed, image reviewed interpreted by me: Chest x-ray shows some hyperinflation of lungs and some flattening of the diaphragms consistent with COPD. No obvious pneumonia. EXAM: CT ANGIO CHEST HISTORY: SOB, elevated dimer TECHNIQUE: CT chest CT angiogram with reconstructions PRIORS: None. FINDINGS: There is no evidence of filling defect within the central pulmonary vasculature to suggest the presence of acute pulmonary embolus. No evidence of mediastinal pathologic lymph node enlargement. Enlarged nodular thyroid noted Heart and great vessels are unremarkable. The aorta is normal in caliber. No focal pulmonary infiltrate identified. No pleural fluid collection seen. No acute pulmonary abnormality noted. Parenchymal scarring noted left lower lobe with some crowding of vascular structures bronchi. Mild centrilobular emphysematous changes noted upper lobes Visualized portion of the upper abdomen demonstrates no acute change. 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 She has COPD but also has a thyroid goiter that she feels is pushing down on the trachea. She does not appear in any respiratory distress. ABG does show some respiratory acidosis. CT angiogram negative for PE. She was given some breathing treatments and steroids. She'll be admitted for COPD exacerbation and accepted for admission by Dr. Gonzalez, although he may pass it along to the next hospitalist. - Differential Diagnosis COPD, pneumonia, SC, PE Critical Care Time: No Critical care attestation.: If time is entered above; I have spent that time in minutes in the direct care of this critically ill patient, excluding procedure time. ED Disposition Clinical Impression: COPD with acute exacerbation, Respiratory acidosis, Thyroid goiter, Dyspnea Disposition: OP ADMIT IP TO THIS HOSP Is pt being admited?: Yes Condition: Stable
[2017-07-26 16:18] LABS: INR 0.91 (0.87-1.13)
[2017-07-26 16:20] LABS: BUN/Creatinine Ratio 28; Blood Urea Nitrogen 14 mg/dL (7-17); Calcium 9.1 mg/dL (8.4-10.2); Hemolysis Index 6
[2017-07-26] MEDS ORDERED: DUONEB *Not for PRN Use IH ONE ×2 (16:57→17:00)
--- NOTE | 2017-07-26 18:17 | Cat Scan Report ---
FINAL REPORT EXAM: CT ANGIO CHEST HISTORY: SOB, elevated dimer TECHNIQUE: CT chest CT angiogram with reconstructions PRIORS: None. FINDINGS: There is no evidence of filling defect within the central pulmonary vasculature to suggest the presence of acute pulmonary embolus. No evidence of mediastinal pathologic lymph node enlargement. Enlarged nodular thyroid noted Heart and great vessels are unremarkable. The aorta is normal in caliber. No focal pulmonary infiltrate identified. No pleural fluid collection seen. No acute pulmonary abnormality noted. Parenchymal scarring noted left lower lobe with some crowding of vascular structures bronchi. Mild centrilobular emphysematous changes noted upper lobes Visualized portion of the upper abdomen demonstrates no acute change. There is a partially calcified thrombosed splenic artery aneurysm measuring 1.5 centimeters IMPRESSION: Multinodular goiter Thrombosed partially calcified splenic artery aneurysm Scarring noted within the posterior left lower lobe No CT evidence of acute pulmonary embolus
[2017-07-26] MEDS ORDERED: PERCOCET 5/325 PO ONE (18:27)
--- NOTE | 2017-07-27 02:08 | History and Physical Report ---
History of Present Illness Date of examination: 07/27/17 Chief complaint: Shortness of breath History of present illness: This is a 9-year-old female presents to the emergency department from home with complaint of a three-day history of some shortness of breath. The patient has a history of COPD and is on 2 L oxygen by nasal cannula. She arrived by EMS and received some albuterol breathing treatments and 125 mg of Solu-Medrol in route. She also has a past medical history of arthritis, GERD, hypertension and has thyromegaly. She says that she believes the thyroid is pushing back on "my windpipe." Patient previously was on hospice secondary to her COPD but came off of hospice the summer. She is getting a new primary care physician but her spinning frame tender is Dr. Drew. She has some intermittent chest pains but denies any back pain, nausea, vomiting or diaphoresis. No recent travel or sick contacts at home. Past History Past Medical History: COPD, hypertension, hyperlipidemia, other (Chronic resp. failure) Past Surgical History: Other (exploratory laparotomy) Social history: full code. denies: smoking, alcohol abuse, IV drug use Family history: no significant family history Medications and Allergies Allergies Allergy/AdvReac Type Severity Reaction Status Date / Time No Known Allergies Allergy Verified 02/04/16 12:01 Home Medications Medication Instructions Recorded Confirmed Last Taken Type Amlodipine Besylate 10 mg PO QAM 07/29/16 07/26/17 07/26/17 History LORazepam [LORazepam] 2 mg PO QHS PRN 07/29/16 07/26/17 07/26/17 History Simvastatin 20 mg PO QHS 07/29/16 07/26/17 07/26/17 History Pantoprazole [Protonix TAB] 40 mg PO QDAY #30 tablet 08/03/16 07/26/17 07/26/17 Rx Diphenoxylate HCl/Atropine 1 each PO DAILY 06/02/17 07/26/17 07/26/17 History [Diphenoxylate-Atrop 2.5-0.025] Propranolol [Inderal] 10 mg PO BID 06/02/17 07/26/17 07/26/17 History predniSONE [Deltasone] 10 mg PO QDAY 06/02/17 07/26/17 07/26/17 History ALBUTEROL NEB's [Proventil] 2.5 mg IH QID 07/26/17 07/26/17 Unknown History Benzonatate [Tessalon Perles] 100 mg PO Q8HR PRN 07/26/17 07/26/17 Unknown History Oxycodone HCl/Acetaminophen 1 each PO Q6HR PRN 07/26/17 07/26/17 Unknown History [Percocet 7.5/325 mg] Potassium Gluconate 500 mg PO QDAY 07/26/17 07/26/17 07/26/17 History Review of Systems All systems: negative Exam - Physical Exam Narrative exam: General: the patient is awake alert oriented to time place and person. no evidence of acute distress HEENT: Head is atraumatic normocephalic,. Pupils equal round reactive to light and accommodation, extraocular movements intact. Oral mucosa moist. Oropharynx clear. No pharyngeal erythema or tonsillar exudate. Neck: Supple no JVD no thyromegaly or lymphadenopathy. Heart: Regular rate and rhythm no murmurs or gallops. S1 and S2 normal. PMI not displaced. Lungs: Clear to auscultation bilaterally. No rales rhonchi wheezing. Nonlabored breathing. Normal chest wall expansion. Abdomen: Soft, nondistended, and nontender. Normoactive bowel sounds. No hepatosplenomegaly. No abdominal masses or bruit appreciated. Extremities: No cyanosis/clubbing/ edema. Musculoskeletal: Normal range of movement all joints. No obvious deformity or tenderness to palpation. Normal muscle tone. Back: Normal alignment. No step-off. No midline or paraspinal tenderness. No CVA tenderness. Neurological: Grossly intact and nonfocal. No cerebellar signs. Cranial nerves II-12 grossly intact. Strength 5 out of 5 all 4 extremities. Sensations grossly intact. Skin: Warm and dry no rashes or bruises. Psychiatric: Normal mood. Appropriate affect and good insight and judgment. Vascular system: No lymphadenopathy. Distal pulses 2+ bilaterally. - Constitutional Vitals: Temp Pulse Resp BP Pulse Ox 98.1 F 89 16 105/63 95 07/26/17 14:26 07/26/17 20:25 07/26/17 20:25 07/27/17 02:00 07/27/17 02:00 Results - Labs CBC & Chem 7: 07/28/17 05:29 07/28/17 05:29 Labs: Laboratory Last Values WBC 8.8 K/mm3 (4.5-11.0) 07/26/17 Unknown RBC 4.37 M/mm3 (3.65-5.03) 07/26/17 Unknown Hgb 14.1 gm/dl (10.1-14.3) 07/26/17 Unknown Hct 42.8 % (30.3-42.9) 07/26/17 Unknown MCV 98 fl (79-97) H 07/26/17 Unknown MCH 32 pg (28-32) 07/26/17 Unknown MCHC 33 % (30-34) 07/26/17 Unknown RDW 12.3 % (13.2-15.2) L 07/26/17 Unknown Plt Count 204 K/mm3 (140-440) 07/26/17 Unknown Lymph % (Auto) 16.1 % (13.4-35.0) 07/26/17 Unknown Hanson % (Auto) 2.6 % (0.0-7.3) 07/26/17 Unknown Eos % (Auto) 4.3 % (0.0-4.3) 07/26/17 Unknown Baso % (Auto) 0.6 % (0.0-1.8) 07/26/17 Unknown Lymph # 1.4 K/mm3 (1.2-5.4) 07/26/17 Unknown Hanson # 0.2 K/mm3 (0.0-0.8) 07/26/17 Unknown Eos # 0.4 K/mm3 (0.0-0.4) 07/26/17 Unknown Baso # 0.1 K/mm3 (0.0-0.1) 07/26/17 Unknown Seg Neutrophils % 76.4 % (40.0-70.0) H 07/26/17 Unknown Seg Neutrophils # 6.7 K/mm3 (1.8-7.7) 07/26/17 Unknown PT 12.7 Sec. (12.2-14.9) 07/26/17 14:51 INR 0.91 (0.87-1.13) 07/26/17 14:51 APTT 32.0 Sec. (24.2-36.6) 07/26/17 14:51 D-Dimer 275.12 ng/mlDDU (0-234) H 07/26/17 14:51 POC ABG pH 7.316 (7.35-7.45) L 07/26/17 20:25 POC ABG pCO2 61.5 (35-45) H 07/26/17 20:25 POC ABG pO2 99 (80-105) 07/26/17 20:25 POC ABG HCO3 31.4 07/26/17 20:25 POC ABG Total CO2 33 07/26/17 20:25 POC ABG O2 Sat 97 07/26/17 20:25 POC ABG Base Excess 5 07/26/17 20:25 FiO2 3 % 07/26/17 20:25 Sodium 144 mmol/L (137-145) 07/26/17 14:31 Potassium 4.3 mmol/L (3.6-5.0) 07/26/17 14:31 Chloride 100.7 mmol/L (98-107) 07/26/17 14:31 Carbon Dioxide 31 mmol/L (22-30) H 07/26/17 14:31 Anion Gap 17 mmol/L 07/26/17 14:31 BUN 14 mg/dL (7-17) 07/26/17 14:31 Creatinine 0.5 mg/dL (0.7-1.2) L 07/26/17 14:31 Estimated GFR > 60 ml/min 07/26/17 14:31 BUN/Creatinine Ratio 28 % 07/26/17 14:31 Glucose 113 mg/dL (65-100) H 07/26/17 14:31 Calcium 9.1 mg/dL (8.4-10.2) 07/26/17 14:31 Troponin T < 0.010 ng/mL (0.00-0.029) 07/26/17 14:31 NT-Pro-B Natriuret Pep 82.22 pg/mL (0-900) 07/26/17 14:51 TSH 0.167 mlU/mL (0.270-4.200) L 07/26/17 14:31 Assessment and Plan Assessment and plan: Assessment and plan - 1. Centrilobular emphysema 2. COPD exac. 3. 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 Mechanical dysphagia-Intermittent 6. Mutinodular goiter 7. Acute bronchitis Plan - We'll admit the patient to medical floor with telemetry Aggressive bronchodilators when necessary as well as scheduled IV Solu-Medrol Complete antibiotics as ordered Pulmonology consult for further evaluation and management recommendations Supportive and symptomatic management with IV fluids oxygen When necessary pain medicines and antiemetics Continue all home medications Monitor CBC and electrolytes Replace electrolytes when necessary as per protocol DVT Prophylaxis as ordered Monitor and follow the patient closely Advance Directives: No VTE prophylaxis?: Chemical, Mechanical Plan of care discussed with patient/family: Yes
[2017-07-27] MEDS ORDERED: TYLENOL PO PRN (02:11)
[2017-07-27] MEDS ORDERED: MILK OF MAGNESIA PO PRN (02:11)
[2017-07-27] MEDS ORDERED: PROVENTIL IH PRN (02:11)
[2017-07-27] MEDS ORDERED: PERCOCET 5/325 PO PRN (02:11)
[2017-07-27] MEDS ORDERED: DULCOLAX PR PRN (02:11)
[2017-07-27] MEDS ORDERED: ZOFRAN IV PRN (02:11)
[2017-07-27] MEDS ORDERED: D50W (25GM) Syringe IV PRN (02:11)
[2017-07-27] MEDS ORDERED: AMBIEN PO PRN (02:11)
[2017-07-27] MEDS ORDERED: TESSALON PERLES PO PRN (02:19)
[2017-07-27] MEDS ORDERED: ATIVAN PO PRN (02:19)
[2017-07-27] MEDS: DUONEB *Not for PRN Use IH SCH ×5 (02:54→20:48)
[2017-07-27] MEDS ORDERED: NACL 0.9% 1000 ML 1,000 ML IV SCH (03:00)
[2017-07-27] MEDS: PULMICORT IH SCH ×2 (09:09→20:48)
[2017-07-27] MEDS: NOVOLOG SUB-Q SCH ×4 (09:25→22:26)
[2017-07-27] MEDS: LOVENOX SUB-Q SCH (09:26)
[2017-07-27] MEDS: LEVAQUIN 750MG/150ML 750 MG/150 ML BAG IV SCH (09:26)
[2017-07-27] MEDS: LOMOTIL PO SCH (09:27)
[2017-07-27] MEDS: PROTONIX PO SCH (09:28)
[2017-07-27] MEDS: INDERAL PO SCH ×2 (10:00→21:41)
[2017-07-27] MEDS: COLACE PO SCH ×2 (10:00→21:41)
[2017-07-27] MEDS ORDERED: PEPCID PO SCH (10:00)
[2017-07-27] MEDS: SENOKOT PO SCH ×2 (10:00→21:41)
[2017-07-27] MEDS ORDERED: LEVAQUIN 750MG/150ML 750 MG/150 ML BAG IV SCH (10:00)
[2017-07-27] MEDS: NORVASC PO SCH (10:00)
[2017-07-27] MEDS ORDERED: POTASSIUM GLUCONATE 500 MG PO SCH (10:00)
--- NOTE | 2017-07-27 15:40 | Consultation ---
History of Present Illness Consult date: 07/27/17 Requesting physician: KAYLEN AHMADI Reason for consult: COPD History of present illness: 72 yo admitted with 3 days of worsening SOB, wheezing. Denies fevers, chills, chest pain, cough, sputum, hemoptysis. Only uses O2 QHS but using during daytime past few days. Only on Ventolin and Albuterol nebs prn per her report. Active Medications Acetaminophen (Tylenol) 650 mg PO Q4H PRN PRN Reason: Pain MILD(1-3)/Fever >100.5/GARNER Albuterol (Proventil) 2.5 mg IH Q3HRT PRN PRN Reason: Shortness Of Breath Albuterol/Ipratropium (Duoneb *Not For Prn Use*) 1 ampul IH Q4HRT [facility] Last Admin: 07/27/17 13:01 Dose: 1 ampul Amlodipine Besylate (Norvasc) 10 mg PO QAM [facility] Benzonatate (Tessalon Perles) 100 mg PO Q8HR PRN PRN Reason: Cough Bisacodyl (Dulcolax) 10 mg MS QDAY PRN PRN Reason: Constipation unrelieved by MOM Budesonide (Pulmicort) 0.5 mg IH Q12HRT [facility] Last Admin: 07/27/17 09:09 Dose: 0.5 mg Dextrose (D50w (25gm) Syringe) 50 ml IV PRN PRN PRN Reason: Hypoglycemia Diphenoxylate HCl/Atropine (Lomotil) 1 tab PO DAILY [facility] Last Admin: 07/27/17 09:27 Dose: 1 tab Docusate Sodium (Colace) 100 mg PO BID [facility] Enoxaparin Sodium (Lovenox) 40 mg SUB-Q QDAY [facility] Last Admin: 07/27/17 09:26 Dose: 40 mg Sodium Chloride (Nacl 0.9% 1000 Ml) 1,000 mls @ 100 mls/hr IV DIRECT [facility] Levofloxacin/Dextrose (Levaquin 750mg/150ml) 750 mg in 150 mls @ 100 mls/hr IV Q48HR [facility] PRN Reason: Protocol Last Admin: 07/27/17 09:26 Dose: 100 mls/hr Insulin Aspart (Novolog) 0 units SUB-Q ACHS [facility] PRN Reason: Protocol Last Admin: 07/27/17 09:25 Dose: 3 units Lorazepam (Ativan) 2 mg PO QHS PRN PRN Reason: Sleep Magnesium Hydroxide (Milk Of Magnesia) 30 ml PO Q4H PRN PRN Reason: Constipation Methylprednisolone Sodium Succinate (Solu-Medrol) 60 mg IV Q8HR [facility] Last Admin: 07/27/17 05:47 Dose: 60 mg Miscellaneous Medication (Potassium Gluconate [Potassium Gluconate]) 500 mg PO QDAY [facility] Ondansetron HCl (Zofran) 4 mg IV Q8H PRN PRN Reason: N/V unrelieved by Reglan Oxycodone/Acetaminophen (Percocet 5/325) 1 tab PO Q6H PRN PRN Reason: Pain, Moderate (4-6) Last Admin: 07/27/17 04:03 Dose: 1 tab Pantoprazole Sodium (Protonix) 40 mg PO QDAY [facility] Last Admin: 07/27/17 09:28 Dose: 40 mg Pravastatin Sodium (Pravachol) 40 mg PO QHS [facility] Propranolol HCl (Inderal) 10 mg PO BID [facility] Senna (Senokot) 8.6 mg PO Q12HR [facility] Zolpidem Tartrate (Ambien) 5 mg PO QHS PRN PRN Reason: Insomnia Past History Past Medical History: other (COPD, hyperlipidemia, HTN, Chronic resp. failure) Past Surgical History: Other (hx of exlap) Social history: lives with family, full code. denies: smoking, alcohol abuse, prescription drug abuse, IV drug use Family history: other (No pulm issues reported) Medications and Allergies Allergies Allergy/AdvReac Type Severity Reaction Status Date / Time No Known Allergies Allergy Verified 02/04/16 12:01 Home Medications Medication Instructions Recorded Confirmed Last Taken Type Amlodipine Besylate 10 mg PO QAM 07/29/16 07/26/17 07/26/17 History LORazepam [LORazepam] 2 mg PO QHS PRN 07/29/16 07/26/17 07/26/17 History Simvastatin 20 mg PO QHS 07/29/16 07/26/17 07/26/17 History Pantoprazole [Protonix TAB] 40 mg PO QDAY #30 tablet 08/03/16 07/26/17 07/26/17 Rx Diphenoxylate HCl/Atropine 1 each PO DAILY 1107/26/17 07/26/17 History [Diphenoxylate-Atrop 2.5-0.025] Propranolol [Inderal] 10 mg PO BID 06/02/17 07/26/17 07/26/17 History predniSONE [Deltasone] 10 mg PO QDAY 06/02/17 07/26/17 07/26/17 History ALBUTEROL NEB's [Proventil] 2.5 mg IH QID 07/26/17 07/26/17 Unknown History Benzonatate [Tessalon Perles] 100 mg PO Q8HR PRN 07/26/17 07/26/17 Unknown History Oxycodone HCl/Acetaminophen 1 each PO Q6HR PRN 07/26/17 07/26/17 Unknown History [Percocet 7.5/325 mg] Potassium Gluconate 500 mg PO QDAY 07/26/17 07/26/17 07/26/17 History Active Meds: Active Medications Acetaminophen (Tylenol) 650 mg PO Q4H PRN PRN Reason: Pain MILD(1-3)/Fever >100.5/GARNER Albuterol (Proventil) 2.5 mg IH Q3HRT PRN PRN Reason: Shortness Of Breath Albuterol/Ipratropium (Duoneb *Not For Prn Use*) 1 ampul IH Q4HRT [facility] Last Admin: 07/27/17 13:01 Dose: 1 ampul Amlodipine Besylate (Norvasc) 10 mg PO QAM [facility] Benzonatate (Tessalon Perles) 100 mg PO Q8HR PRN PRN Reason: Cough Bisacodyl (Dulcolax) 10 mg MS QDAY PRN PRN Reason: Constipation unrelieved by MOM Budesonide (Pulmicort) 0.5 mg IH Q12HRT [facility] Last Admin: 07/27/17 09:09 Dose: 0.5 mg Dextrose (D50w (25gm) Syringe) 50 ml IV PRN PRN PRN Reason: Hypoglycemia Diphenoxylate HCl/Atropine (Lomotil) 1 tab PO DAILY [facility] Last Admin: 07/27/17 09:27 Dose: 1 tab Docusate Sodium (Colace) 100 mg PO BID [facility] Enoxaparin Sodium (Lovenox) 40 mg SUB-Q QDAY [facility] Last Admin: 07/27/17 09:26 Dose: 40 mg Sodium Chloride (Nacl 0.9% 1000 Ml) 1,000 mls @ 100 mls/hr IV DIRECT [facility] Levofloxacin/Dextrose (Levaquin 750mg/150ml) 750 mg in 150 mls @ 100 mls/hr IV Q48HR [facility] PRN Reason: Protocol Last Admin: 07/27/17 09:26 Dose: 100 mls/hr Insulin Aspart (Novolog) 0 units SUB-Q ACHS [facility] PRN Reason: Protocol Last Admin: 07/27/17 09:25 Dose: 3 units Lorazepam (Ativan) 2 mg PO QHS PRN PRN Reason: Sleep Magnesium Hydroxide (Milk Of Magnesia) 30 ml PO Q4H PRN PRN Reason: Constipation Methylprednisolone Sodium Succinate (Solu-Medrol) 60 mg IV Q8HR [facility] Last Admin: 07/27/17 05:47 Dose: 60 mg Miscellaneous Medication (Potassium Gluconate [Potassium Gluconate]) 500 mg PO QDAY [facility] Ondansetron HCl (Zofran) 4 mg IV Q8H PRN PRN Reason: N/V unrelieved by Reglan Oxycodone/Acetaminophen (Percocet 5/325) 1 tab PO Q6H PRN PRN Reason: Pain, Moderate (4-6) Last Admin: 07/27/17 04:03 Dose: 1 tab Pantoprazole Sodium (Protonix) 40 mg PO QDAY [facility] Last Admin: 07/27/17 09:28 Dose: 40 mg Pravastatin Sodium (Pravachol) 40 mg PO QHS [facility] Propranolol HCl (Inderal) 10 mg PO BID [facility] Senna (Senokot) 8.6 mg PO Q12HR [facility] Zolpidem Tartrate (Ambien) 5 mg PO QHS PRN PRN Reason: Insomnia Review of Systems All systems: negative Physical Examination Vital signs: Vital Signs Pulse Ox 94 07/26/17 14:19 General appearance: no acute distress, alert, other (cachectic) Eyes: non-icteric ENT: oropharynx moist Neck: supple Effort: normal Ascultation: Bilateral: diminished breath sounds Cardiovascular: regular rate and rhythm (no mrg) Gastrointestinal: normoactive bowel sounds, soft, non-tender, non-distended Integumentary: normal Extremities: no cyanosis, no edema, pink and warm normal mental status, non-focal exam, pupils equal and round, CN II-XII normal mood appropriate, affect normal Results - Laboratory Findings CBC and BMP: 07/26/17 Unknown 07/26/17 14:31 ABG POC ABG pH 7.316 (7.35-7.45) L 07/26/17 20:25 POC ABG pCO2 61.5 (35-45) H 07/26/17 20:25 POC ABG pO2 99 (80-105) 07/26/17 20:25 POC ABG HCO3 31.4 07/26/17 20:25 POC ABG Total CO2 33 07/26/17 20:25 POC ABG O2 Sat 97 07/26/17 20:25 PT/INR, D-dimer PT 12.7 Sec. (12.2-14.9) 07/26/17 14:51 INR 0.91 (0.87-1.13) 07/26/17 14:51 D-Dimer 275.12 ng/mlDDU (0-234) H 07/26/17 14:51 Abnormal lab findings: Abnormal Labs 07/26/17 07/26/17 07/26/17 14:31 14:31 14:51 MCV RDW Seg Neutrophils % D-Dimer 275.12 H POC ABG pH POC ABG pCO2 Carbon Dioxide 31 H Creatinine 0.5 L Glucose 113 H POC Glucose TSH 0.167 L 07/26/17 07/26/17 07/27/17 20:25 Unknown 08:57 MCV 98 H RDW 12.3 L Seg Neutrophils % 76.4 H D-Dimer POC ABG pH 7.316 L POC ABG pCO2 61.5 H Carbon Dioxide Creatinine Glucose POC Glucose 201 H TSH 07/27/17 13:02 MCV RDW Seg Neutrophils % D-Dimer POC ABG pH POC ABG pCO2 Carbon Dioxide Creatinine Glucose POC Glucose 219 H TSH - Diagnostic Findings Chest x-ray: report reviewed, image reviewed CT scan - chest: report reviewed, image reviewed Assessment and Plan Imp: 1. Centrilobular emphysema 2. COPD exac. 3. A/C respiratory fail., hypoxia and hypercapnea 4. 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 CXR and CT chest clear but can finish ~ 5 days of ABX 2. Prednisone taper at d/c 3. Needs better COPD regimen; would add Stiolto Respimat 2 puffs daily at d/c 4. Clinically improved already; possibly can go home next day or so Plan of care reviewed with patient, she understands/agrees Thanks for the consult.
--- NOTE | 2017-07-27 16:13 | Event Note ---
Date: 07/27/17 Patient seen and examined at this time citalopram beside in no acute distress. Reports improvement in symptoms. 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 She reports a trial of thyroid medications made her break out in rashes she is unsure what medication she is on at this time. We'll try to obtain this information from her primary physician or specialist. We'll continue current treatment from normal to pulmonary evaluation.
[2017-07-27] MEDS ORDERED: ROBITUSSIN PO PRN (17:51)
[2017-07-27] MEDS: PRAVACHOL PO SCH (21:41)
[2017-07-27] MEDS ORDERED: NON-FORMULARY (Simvastatin [Simvastatin] 20 MG) PO SCH (22:00)
[2017-07-28] MEDS: DUONEB *Not for PRN Use IH SCH ×6 (00:43→19:29)
[2017-07-28 06:07] LABS: Hematocrit 36.8 % (30.3-42.9); Hemoglobin 12.5 gm/dl (10.1-14.3); Mean Corpuscular HGB Conc 34 % (30-34); Mean Corpuscular Hemoglobin 34 pg (28-32); Mean Corpuscular Volume 99 fl (79-97); Platelet Count 165 K/mm3 (140-440); Red Blood Count 3.72 M/mm3 (3.65-5.03); Red Cell Distribution Width 12.6 % (13.2-15.2)
[2017-07-28 06:19] LABS: Alanine Aminotransferase 9 units/L (7-56); Albumin 3.5 g/dL (3.9-5); BUN/Creatinine Ratio 43; Blood Urea Nitrogen 17 mg/dL (7-17); Calcium 8.5 mg/dL (8.4-10.2); Hemolysis Index 7
[2017-07-28 07:13] LABS: Basophils % (Manual) 0 % (0.0-1.8); Eosinophils % (Manual) 0 % (0.0-4.3); Total Cells Counted 100
[2017-07-28 07:14] LABS: Platelet Estimate Consistent w Auto; RBC Morphology Normal
[2017-07-28] MEDS: PULMICORT IH SCH ×2 (09:17→19:29)
[2017-07-28] MEDS: NOVOLOG SUB-Q SCH ×4 (09:44→22:30)
[2017-07-28] MEDS: INDERAL PO SCH ×3 (10:31→22:39)
[2017-07-28] MEDS: LOMOTIL PO SCH ×2 (10:32→10:36)
[2017-07-28] MEDS: NORVASC PO SCH (10:35)
[2017-07-28] MEDS: PROTONIX PO SCH (10:35)
[2017-07-28] MEDS: COLACE PO SCH ×2 (10:35→22:30)
[2017-07-28] MEDS: SENOKOT PO SCH ×2 (10:35→22:31)
[2017-07-28] MEDS: LOVENOX SUB-Q SCH (10:36)
--- NOTE | 2017-07-28 13:16 | Progress Note ---
Assessment and Plan Imp: 1. Centrilobular emphysema 2. COPD exac. 3. 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 Acute bronchitis Rec: 1. CXR and CT chest clear but would finish ~ 5 days of ABX 2. Prednisone taper at d/c 3. Needs better COPD regimen; would add Stiolto Respimat 2 puffs daily at d/c 4. Given poor ABG recommend continue current care another 24 hours and recheck ABG again in AM with goal sat of 88-94%; RT notified Plan of care reviewed with patient, she understands/agrees Subjective Date of service: 07/28/17 Principal diagnosis: COPD exac. Interval history: ABG showed CO2 retention. Used BIPAP briefly this AM. SOB better. O2 turned down to 1L NC after ABG. Has cough with scant clear sputum. No new complaints. Active Medications Acetaminophen (Tylenol) 650 mg PO Q4H PRN PRN Reason: Pain MILD(1-3)/Fever >100.5/GARNER Last Admin: 07/28/17 10:35 Dose: 650 mg Albuterol (Proventil) 2.5 mg IH Q3HRT PRN PRN Reason: Shortness Of Breath Albuterol/Ipratropium (Duoneb *Not For Prn Use*) 1 ampul IH Q4HRT [facility] Last Admin: 07/28/17 09:16 Dose: 1 ampul Amlodipine Besylate (Norvasc) 10 mg PO QAM [facility] Last Admin: 07/28/17 10:35 Dose: 10 mg Benzonatate (Tessalon Perles) 100 mg PO Q8HR PRN PRN Reason: Cough Bisacodyl (Dulcolax) 10 mg VA QDAY PRN PRN Reason: Constipation unrelieved by MOM Budesonide (Pulmicort) 0.5 mg IH Q12HRT [facility] Last Admin: 07/28/17 09:17 Dose: 0.5 mg Dextrose (D50w (25gm) Syringe) 50 ml IV PRN PRN PRN Reason: Hypoglycemia Diphenoxylate HCl/Atropine (Lomotil) 1 tab PO DAILY [facility] Last Admin: 07/28/17 10:36 Dose: Not Given Docusate Sodium (Colace) 100 mg PO BID [facility] Last Admin: 07/28/17 10:35 Dose: 100 mg Enoxaparin Sodium (Lovenox) 40 mg SUB-Q QDAY [facility] Last Admin: 07/28/17 10:36 Dose: 40 mg Guaifenesin (Robitussin) 200 mg PO Q6H PRN PRN Reason: Cough Last Admin: 07/27/17 19:00 Dose: 200 mg Sodium Chloride (Nacl 0.9% 1000 Ml) 1,000 mls @ 100 mls/hr IV DIRECT [facility] Levofloxacin/Dextrose (Levaquin 750mg/150ml) 750 mg in 150 mls @ 100 mls/hr IV Q48HR [facility] PRN Reason: Protocol Last Admin: 07/27/17 09:26 Dose: 100 mls/hr Insulin Aspart (Novolog) 0 units SUB-Q ACHS [facility] PRN Reason: Protocol Last Admin: 07/28/17 12:13 Dose: Not Given Lorazepam (Ativan) 2 mg PO QHS PRN PRN Reason: Sleep Magnesium Hydroxide (Milk Of Magnesia) 30 ml PO Q4H PRN PRN Reason: Constipation Methylprednisolone Sodium Succinate (Solu-Medrol) 60 mg IV Q8HR [facility] Last Admin: 07/28/17 09:44 Dose: Not Given Miscellaneous Medication (Potassium Gluconate [Potassium Gluconate]) 500 mg PO QDAY [facility] Ondansetron HCl (Zofran) 4 mg IV Q8H PRN PRN Reason: N/V unrelieved by Reglan Oxycodone/Acetaminophen (Percocet 5/325) 1 tab PO Q6H PRN PRN Reason: Pain, Moderate (4-6) Last Admin: 07/27/17 04:03 Dose: 1 tab Pantoprazole Sodium (Protonix) 40 mg PO QDAY [facility] Last Admin: 07/28/17 10:35 Dose: 40 mg Pravastatin Sodium (Pravachol) 40 mg PO QHS [facility] Last Admin: 07/27/17 21:41 Dose: 40 mg Propranolol HCl (Inderal) 10 mg PO BID [facility] Last Admin: 07/28/17 10:31 Dose: 10 mg Senna (Senokot) 8.6 mg PO Q12HR [facility] Last Admin: 07/28/17 10:35 Dose: 8.6 mg Zolpidem Tartrate (Ambien) 5 mg PO QHS PRN PRN Reason: Insomnia Objective Vital Signs - 12hr 07/28/17 07/28/17 07/28/17 04:40 04:50 05:05 Temperature Pulse Rate 66 Pulse Rate [ 79 77 Anterior Bilateral Throughout] Respiratory 23 Rate Respiratory 18 20 Rate [Anterior Bilateral Throughout] Blood Pressure O2 Sat by Pulse 96 Oximetry 07/28/17 07/28/17 07/28/17 05:33 07:17 07:46 Temperature 97.6 F 98.5 F Pulse Rate 70 64 72 Pulse Rate [ Anterior Bilateral Throughout] Respiratory 19 18 Rate Respiratory Rate [Anterior Bilateral Throughout] Blood Pressure 102/52 103/53 O2 Sat by Pulse 95 97 Oximetry 07/28/17 07/28/17 07/28/17 09:15 09:35 09:48 Temperature Pulse Rate Pulse Rate [ 86 88 Anterior Bilateral Throughout] Respiratory 18 Rate Respiratory 18 20 Rate [Anterior Bilateral Throughout] Blood Pressure O2 Sat by Pulse 96 Oximetry 07/28/17 07/28/17 10:00 11:59 Temperature 98.3 F Pulse Rate 86 Pulse Rate [ Anterior Bilateral Throughout] Respiratory 18 Rate Respiratory Rate [Anterior Bilateral Throughout] Blood Pressure 105/56 O2 Sat by Pulse 99 98 Oximetry Constitutional: no acute distress, alert, other (cachectic) Eyes: non-icteric ENT: oropharynx moist Neck: supple Effort: normal Ascultation: Bilateral: diminished breath sounds Cardiovascular: regular rate and rhythm (no mrg) Gastrointestinal: normoactive bowel sounds, soft, non-tender, non-distended Integumentary: normal Extremities: no cyanosis, no edema, pink and warm Neurologic: normal mental status, non-focal exam, pupils equal and round, CN II- XII normal Psychiatric: mood appropriate, affect normal CBC and BMP: 07/28/17 05:29 07/28/17 05:29 ABG, PT/INR, D-dimer: ABG POC ABG pH 7.317 (7.35-7.45) L 07/28/17 05:07 POC ABG pCO2 62.1 (35-45) H 07/28/17 05:07 POC ABG pO2 109 (80-105) H 07/28/17 05:07 POC ABG HCO3 31.8 07/28/17 05:07 POC ABG Total CO2 34 07/28/17 05:07 POC ABG O2 Sat 98 07/28/17 05:07 PT/INR, D-dimer PT 12.7 Sec. (12.2-14.9) 07/26/17 14:51 INR 0.91 (0.87-1.13) 07/26/17 14:51 D-Dimer 275.12 ng/mlDDU (0-234) H 07/26/17 14:51 Abnormal lab findings: Abnormal Labs 07/26/17 07/26/17 07/26/17 14:31 14:31 14:51 MCV MCH RDW Seg Neutrophils % Seg Neuts % (Manual) Lymphocytes % (Manual) Seg Neutrophils # Man Lymphocytes # (Manual) D-Dimer 275.12 H POC ABG pH POC ABG pCO2 POC ABG pO2 Carbon Dioxide 31 H Creatinine 0.5 L Glucose 113 H POC Glucose Magnesium Total Protein Albumin TSH 0.167 L 07/26/17 07/26/17 07/27/17 20:25 Unknown 08:57 MCV 98 H MCH RDW 12.3 L Seg Neutrophils % 76.4 H Seg Neuts % (Manual) Lymphocytes % (Manual) Seg Neutrophils # Man Lymphocytes # (Manual) D-Dimer POC ABG pH 7.316 L POC ABG pCO2 61.5 H POC ABG pO2 Carbon Dioxide Creatinine Glucose POC Glucose 201 H Magnesium Total Protein Albumin TSH 07/27/17 07/27/17 07/27/17 13:02 16:40 20:57 MCV MCH RDW Seg Neutrophils % Seg Neuts % (Manual) Lymphocytes % (Manual) Seg Neutrophils # Man Lymphocytes # (Manual) D-Dimer POC ABG pH POC ABG pCO2 POC ABG pO2 Carbon Dioxide Creatinine Glucose POC Glucose 219 H 196 H 163 H Magnesium Total Protein Albumin TSH 07/28/17 07/28/17 07/28/17 05:07 05:29 05:29 MCV 99 H MCH 34 H RDW 12.6 L Seg Neutrophils % Seg Neuts % (Manual) 90.0 H Lymphocytes % (Manual) 7.0 L Seg Neutrophils # Man 8.6 H Lymphocytes # (Manual) 0.7 L D-Dimer POC ABG pH 7.317 L POC ABG pCO2 62.1 H POC ABG pO2 109 H Carbon Dioxide Creatinine 0.4 L Glucose 140 H POC Glucose Magnesium 1.30 L Total Protein 5.4 L Albumin 3.5 L TSH 07/28/17 07/28/17 07:55 12:03 MCV MCH RDW Seg Neutrophils % Seg Neuts % (Manual) Lymphocytes % (Manual) Seg Neutrophils # Man Lymphocytes # (Manual) D-Dimer POC ABG pH POC ABG pCO2 POC ABG pO2 Carbon Dioxide Creatinine Glucose POC Glucose 148 H 129 H Magnesium Total Protein Albumin TSH Chest x-ray: report reviewed, image reviewed CT scan - chest: report reviewed, image reviewed
--- NOTE | 2017-07-28 15:23 | Progress Note ---
Assessment and Plan Assessment and plan: This is a 9-year-old female presents to the emergency department from home with complaint of a three-day history of some shortness of breath. The patient has a history of COPD and is on 2 L oxygen by nasal cannula. She arrived by EMS and received some albuterol breathing treatments and 125 mg of Solu-Medrol in route. She also has a past medical history of arthritis, GERD, hypertension and has thyromegaly. She says that she believes the thyroid is pushing back on "my windpipe." Patient previously was on hospice secondary to her COPD but came off of hospice the summer. She is getting a new primary care physician but her auto tester is Dr. Drew. Acute on chronic Hypoxic with Hypercapenic Respiratory failure COPD Exacerbation Cachexia Mechanical dysphagia-Intermittent Mutinodular goiter Acute bronchitis Emphysema Plan: Continue supportive care per patient Goiter management outpatient, surgery being considered and she is states Thyroid medicine makes her sick Stiolto Respimat 2 Puffs daily at D/C per Pulmonary Continue Nebulizer ABG in Am Encourage ambulation DVT/GI porphy outpatient. History Interval history: Patient seen and examined today not acute distress although this morning reported increased shortness of breath and then up being placed on a BiPAP briefly. This was subsequently discontinued this morning with oxygen nasal cannula level dropped to 1 L/m. Hospitalist Physical - Physical exam Narrative exam: VITAL SIGNS: Reviewed. GENERAL: In no acute distress but with coarseness to vocal sounds. Cachectic appearing. Vital signs as documented. HEAD: No signs of head trauma. EYES: Pupils are equal. Extraocular motions intact. EARS: Hearing grossly intact. MOUTH: Oropharynx is normal. NECK: Base of thyroid with enlargement noted.(Chronic per patient), no JVD. CHEST: Chest with diminished breath sounds bilaterally. No wheezes, rales, or rhonchi. CARDIAC: Regular rate and rhythm. S1 and S2, without murmurs, gallops, or rubs. VASCULAR: No Edema. Peripheral pulses normal and equal in all extremities. ABDOMEN: Soft, without detectable tenderness. No sign of distention. No rebound or guarding, and no masses palpated. Bowel Sounds normal. MUSCULOSKELETAL: Good range of motion of all major joints. Extremities without clubbing, cyanosis or edema. NEUROLOGIC EXAM: Alert and oriented x 3. No focal sensory or strength deficits. Speech normal. Follows commands. PSYCHIATRIC: Mood normal. SKIN: No rash or lesions. - Constitutional Vitals: Temp Pulse Resp BP Pulse Ox 98.3 F 86 18 105/56 98 07/28/17 11:59 07/28/17 11:59 07/28/17 11:59 07/28/17 11:59 07/28/17 11:59 Results - Labs CBC & Chem 7: 07/28/17 05:29 07/28/17 05:29 Labs: Laboratory Last Values WBC 9.6 K/mm3 (4.5-11.0) 07/28/17 05:29 RBC 3.72 M/mm3 (3.65-5.03) 07/28/17 05:29 Hgb 12.5 gm/dl (10.1-14.3) 07/28/17 05:29 Hct 36.8 % (30.3-42.9) D 07/28/17 05:29 MCV 99 fl (79-97) H 07/28/17 05:29 MCH 34 pg (28-32) H 07/28/17 05:29 MCHC 34 % (30-34) 07/28/17 05:29 RDW 12.6 % (13.2-15.2) L 07/28/17 05:29 Plt Count 165 K/mm3 (140-440) 07/28/17 05:29 Lymph % (Auto) 16.1 % (13.4-35.0) 07/26/17 Unknown [place] % (Auto) 2.6 % (0.0-7.3) 07/26/17 Unknown Eos % (Auto) 4.3 % (0.0-4.3) 07/26/17 Unknown Baso % (Auto) 0.6 % (0.0-1.8) 07/26/17 Unknown Lymph # 1.4 K/mm3 (1.2-5.4) 07/26/17 Unknown [place] # 0.2 K/mm3 (0.0-0.8) 07/26/17 Unknown Eos # 0.4 K/mm3 (0.0-0.4) 07/26/17 Unknown Baso # 0.1 K/mm3 (0.0-0.1) 07/26/17 Unknown Add Manual Diff Complete 07/28/17 05:29 Total Counted 100 12/29/17 05:29 Seg Neutrophils % Gear Room Keeper 07/28/17 05:29 Seg Neuts % (Manual) 90.0 % (40.0-70.0) H 07/28/17 05:29 Band Neutrophils % 0 % 07/28/17 05:29 Lymphocytes % (Manual) 7.0 % (13.4-35.0) L 07/28/17 05:29 Reactive Lymphs % (Man) 0 % 07/28/17 05:29 Monocytes % (Manual) 3.0 % (0.0-7.3) 07/28/17 05:29 Eosinophils % (Manual) 0 % (0.0-4.3) 07/28/17 05:29 Basophils % (Manual) 0 % (0.0-1.8) 07/28/17 05:29 Metamyelocytes % 0 % 07/28/17 05:29 Myelocytes % 0 % 07/28/17 05:29 Promyelocytes % 0 % 07/28/17 05:29 Blast Cells % 0 % 07/28/17 05:29 Nucleated RBC % Not Reportable 07/28/17 05:29 Seg Neutrophils # 6.7 K/mm3 (1.8-7.7) 07/26/17 Unknown Seg Neutrophils # Man 8.6 K/mm3 (1.8-7.7) H 07/28/17 05:29 Band Neutrophils # 0.0 K/mm3 07/28/17 05:29 Lymphocytes # (Manual) 0.7 K/mm3 (1.2-5.4) L 07/28/17 05:29 Abs React Lymphs (Man) 0.0 K/mm3 07/28/17 05:29 Monocytes # (Manual) 0.3 K/mm3 (0.0-0.8) 07/28/17 05:29 Eosinophils # (Manual) 0.0 K/mm3 (0.0-0.4) 07/28/17 05:29 Basophils # (Manual) 0.0 K/mm3 (0.0-0.1) 07/28/17 05:29 Metamyelocytes # 0.0 K/mm3 07/28/17 05:29 Myelocytes # 0.0 K/mm3 07/28/17 05:29 Promyelocytes # 0.0 K/mm3 07/28/17 05:29 Blast Cells # 0.0 K/mm3 07/28/17 05:29 WBC Morphology Not Reportable 07/28/17 05:29 Hypersegmented Neuts Not Reportable 07/28/17 05:29 Hyposegmented Neuts Not Reportable 07/28/17 05:29 Hypogranular Neuts Not Reportable 07/28/17 05:29 Smudge Cells Not Reportable 07/28/17 05:29 Toxic Granulation Not Reportable 07/28/17 05:29 Toxic Vacuolation Not Reportable 07/28/17 05:29 Dohle Bodies Not Reportable 07/28/17 05:29 Pelger-Huet Anomaly Not Reportable 07/28/17 05:29 Miya Rods Not Reportable 07/28/17 05:29 Platelet Estimate Consistent w auto 07/28/17 05:29 Clumped Platelets Not Reportable 07/28/17 05:29 Plt Clumps, EDTA Not Reportable 07/28/17 05:29 Large Platelets Not Reportable 07/28/17 05:29 Giant Platelets Not Reportable 07/28/17 05:29 Platelet Satelliting Not Reportable 07/28/17 05:29 Plt Morphology Comment Not Reportable 07/28/17 05:29 RBC Morphology Normal 07/28/17 05:29 Dimorphic RBCs Not Reportable 07/28/17 05:29 Polychromasia Not Reportable 07/28/17 05:29 Hypochromasia Not Reportable 07/28/17 05:29 Poikilocytosis Not Reportable 07/28/17 05:29 Anisocytosis Not Reportable 07/28/17 05:29 Microcytosis Not Reportable 07/28/17 05:29 Macrocytosis Not Reportable 07/28/17 05:29 Spherocytes Not Reportable 07/28/17 05:29 Pappenheimer Bodies Not Reportable 07/28/17 05:29 Sickle Cells Not Reportable 07/28/17 05:29 Target Cells Not Reportable 07/28/17 05:29 Tear Drop Cells Not Reportable 07/28/17 05:29 Ovalocytes Not Reportable 07/28/17 05:29 Helmet Cells Not Reportable 07/28/17 05:29 Wagoner-Baird Bodies Not Reportable 07/28/17 05:29 Noble Rings Not Reportable 07/28/17 05:29 Martin Cells Not Reportable 07/28/17 05:29 Bite Cells Not Reportable 07/28/17 05:29 Crenated Cell Not Reportable 07/28/17 05:29 Elliptocytes Not Reportable 07/28/17 05:29 Acanthocytes (Spur) Not Reportable 07/28/17 05:29 Rouleaux Not Reportable 07/28/17 05:29 Hemoglobin C Crystals Not Reportable 07/28/17 05:29 Schistocytes Not Reportable 07/28/17 05:29 Malaria parasites Not Reportable 07/28/17 05:29 Juliocesar Bodies Not Reportable 07/28/17 05:29 Hem Pathologist Commnt No 07/28/17 05:29 PT 12.7 Sec. (12.2-14.9) 07/26/17 14:51 INR 0.91 (0.87-1.13) 07/26/17 14:51 APTT 32.0 Sec. (24.2-36.6) 07/26/17 14:51 D-Dimer 275.12 ng/mlDDU (0-234) H 07/26/17 14:51 POC ABG pH 7.317 (7.35-7.45) L 07/28/17 05:07 POC ABG pCO2 62.1 (35-45) H 07/28/17 05:07 POC ABG pO2 109 (80-105) H 07/28/17 05:07 POC ABG HCO3 31.8 07/28/17 05:07 POC ABG Total CO2 34 07/28/17 05:07 POC ABG O2 Sat 98 07/28/17 05:07 POC ABG Base Excess 6 07/28/17 05:07 FiO2 28 % 07/28/17 05:07 Sodium 143 mmol/L (137-145) 07/28/17 05:29 Potassium 4.2 mmol/L (3.6-5.0) 07/28/17 05:29 Chloride 101.3 mmol/L (98-107) 07/28/17 05:29 Carbon Dioxide 30 mmol/L (22-30) 07/28/17 05:29 Anion Gap 16 mmol/L 07/28/17 05:29 BUN 17 mg/dL (7-17) 07/28/17 05:29 Creatinine 0.4 mg/dL (0.7-1.2) L 07/28/17 05:29 Estimated GFR > 60 ml/min 07/28/17 05:29 BUN/Creatinine Ratio 43 % 07/28/17 05:29 Glucose 140 mg/dL (65-100) H 07/28/17 05:29 POC Glucose 129 (70-105) H 07/28/17 12:03 Calcium 8.5 mg/dL (8.4-10.2) 07/28/17 05:29 Phosphorus 3.70 mg/dL (2.5-4.5) 07/28/17 05:29 Magnesium 1.30 mg/dL (1.7-2.3) L 07/28/17 05:29 Total Bilirubin 0.20 mg/dL (0.1-1.2) 07/28/17 05:29 AST 11 units/L (5-40) 07/28/17 05:29 ALT 9 units/L (7-56) 07/28/17 05:29 Alkaline Phosphatase 87 units/L (35-129) 07/28/17 05:29 Troponin T < 0.010 ng/mL (0.00-0.029) 07/26/17 14:31 NT-Pro-B Natriuret Pep 82.22 pg/mL (0-900) 07/26/17 14:51 Total Protein 5.4 g/dL (6.3-8.2) L 07/28/17 05:29 Albumin 3.5 g/dL (3.9-5) L 07/28/17 05:29 Albumin/Globulin Ratio 1.8 % 07/28/17 05:29 TSH 0.167 mlU/mL (0.270-4.200) L 07/26/17 14:31 Free T4 0.90 ng/dL (0.76-1.46) 07/27/17 10:40 - Imaging and Cardiology CT scan - chest: image reviewed (multinodular goiter)
[2017-07-28] MEDS: PRAVACHOL PO SCH (22:32)
[2017-07-29] MEDS: DUONEB *Not for PRN Use IH SCH ×5 (01:09→16:11)
[2017-07-29] MEDS: PULMICORT IH SCH (07:30)
[2017-07-29] MEDS: NOVOLOG SUB-Q SCH ×2 (07:30→11:30)
[2017-07-29] MEDS: LEVAQUIN 750MG/150ML 750 MG/150 ML BAG IV SCH (10:25)
[2017-07-29] MEDS: INDERAL PO SCH (10:25)
[2017-07-29] MEDS: LOVENOX SUB-Q SCH (10:25)
[2017-07-29] MEDS: PROTONIX PO SCH (10:26)
[2017-07-29] MEDS: NORVASC PO SCH (10:26)
[2017-07-29] MEDS: LOMOTIL PO SCH (10:33)
[2017-07-29] MEDS: COLACE PO SCH (10:33)
[2017-07-29] MEDS: SENOKOT PO SCH (10:33)
--- NOTE | 2017-07-29 15:07 | Discharge Summary ---
Providers - Providers Date of Admission: 07/27/17 02:11 Attending physician: KAYLEN AHMADI MD 07/27/17 08:28 Consult to Physician [CONS] Routine Consulting Provider: MEELYN LEMONS Reason For Exam: COPD EXACERBATION Place consult to:: Dr. 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 The patient has a history of COPD and is on 2 L oxygen by nasal cannula. She arrived by EMS and received some albuterol breathing treatments and 125 mg of Solu-Medrol in route. She also has a past medical history of arthritis, GERD, hypertension and has thyromegaly. She says that she believes the thyroid is pushing back on "my windpipe." Patient previously was on hospice secondary to her COPD but came off of hospice the summer. She is getting a new primary care physician but her billing typist is Dr. Drew. Patient was treated in the hospital appears that the thyroid goiter could be consistent obstructive pulmonary problems for this patient as she does develop hypercapnia which improved with BiPAP. ABG did demonstrate hypercapnic respiratory failure. Patient was started on also Stiolto Respimat 2 Puffs daily on discharge and to follow-up with pulmonary. We'll also going to do at [facility] study for this patient at home. This results of the followed by pulmonary condition at time of discharge stable. She reports that she has some allergic reactions the thyroid medication she is going to be following up with her guide setter and also her ENT for further evaluation as she is markedly cachectic and anorexic from thyroid disorder. Acute on chronic Hypoxic with Hypercapenic Respiratory failure COPD Exacerbation Cachexia with anorexia Mechanical dysphagia-Intermittent Mutinodular goiter Acute bronchitis Emphysema Disposition: DC/TX-06 HOME UNDER HOME HLTH Time spent for discharge: 35 MINS Core Measure Documentation - Palliative Care Palliative Care/ Comfort Measures: Not Applicable - Core Measures Any of the following diagnoses?: none - VTE Discharge Requirements Deep Vein Thrombosis/Pulmonary Embolism Present on Admission: No Exam - Physical Exam Narrative exam: VITAL SIGNS: Reviewed. GENERAL: In no acute distress. Cachectic appearing. Vital signs as documented. HEAD: No signs of head trauma. EYES: Pupils are equal. Extraocular motions intact. EARS: Hearing grossly intact. MOUTH: Oropharynx is normal. NECK: Base of thyroid with enlargement noted.(Chronic per patient), no JVD. CHEST: Chest with diminished breath sounds bilaterally. No wheezes, rales, or rhonchi. CARDIAC: Regular rate and rhythm. S1 and S2, without murmurs, gallops, or rubs. VASCULAR: No Edema. Peripheral pulses normal and equal in all extremities. ABDOMEN: Soft, without detectable tenderness. No sign of distention. No rebound or guarding, and no masses palpated. Bowel Sounds normal. MUSCULOSKELETAL: Good range of motion of all major joints. Extremities without clubbing, cyanosis or edema. NEUROLOGIC EXAM: Alert and oriented x 3. No focal sensory or strength deficits. Speech normal. Follows commands. PSYCHIATRIC: Mood normal. SKIN: No rash or lesions. - Constitutional Vitals: Temp Pulse Resp BP Pulse Ox 97.7 F 87 20 137/77 98 07/29/17 07:23 07/29/17 12:09 07/29/17 12:09 07/29/17 12:09 07/29/17 12:09 Plan Activity: advance as tolerated, up only with assistance Diet: regular Additional Instructions: follow with ent and guide setter in 1 week Follow up with: EMELYN LEMONS MD [Staff Physician] - 7 Days PRIMARY CARE, [Primary Care Provider] - 3-5 Days ANTONY VILLATORO MD [Staff Physician] - 7 Days Prescriptions: ALBUTEROL Inhaler [ProAir HFA Inhaler] 1 puff IH QID PRN 30 Days inha PRN Reason: Shortness Of Breath Amoxicillin/Potassium Clav [Augmentin 875-125 Tablet] 1 each PO BID #14 tablet Prednisone [predniSONE 10 mg (6-Day Pack, 21 Tabs)] 10 mg PO .TAPER #1 tab.ds.pk Tiotropium Br/Olodaterol HCl [Stiolto Respimat Inhal [place]] 4 gm IH DAILY 30 Days mist.inhal Other Discharge Orders: Home Health Care (Amb) Location: Determined By Patient
--- NOTE | 2017-07-29 15:59 | Progress Note ---
Assessment and Plan COPD exacerbation. Patient currently controlled.case known to our practice with progressive emphysema Low body weight, cachexia. It was secondary to COPD. Acute trache- bronchitis Tobacco abuse Recommendation Ambulate patient and monitor oximetry. Add portable oxygen 2 L/m if oximetry below 89% on room air. Update influenza and pneumonia vaccination, if not completed already. Candidate for pulmonary rehabilitation Outpatient pulmonary evaluation, PFT workup for COPD severity stratification Inhaler therapy including LAMA, LABA/ICS therapy, per GOLD guidelines. already recommended Stiolto Nutritional support, weight reduction diet. BMI under 30 and avoid malnutrition , BMI under 19 Follow-up with Dr. Andrews at the office We'll sign off Subjective Date of service: 07/29/17 Principal diagnosis: COPD exac. Interval history: Patient reports no respiratory complaints. No shortness of breath or wheezing. She is ready to leave the hospital. Objective Vital Signs - 12hr 07/29/17 07/29/17 07/29/17 04:40 04:54 05:23 Temperature 98.5 F Pulse Rate 63 Pulse Rate [ 65 64 Anterior Bilateral Throughout] Pulse Rate [ From Monitor] Respiratory 18 Rate Respiratory 22 20 Rate [Anterior Bilateral Throughout] Blood Pressure 125/68 O2 Sat by Pulse 96 Oximetry 07/29/17 07/29/17 07/29/17 07:00 07:23 07:35 Temperature 97.7 F Pulse Rate 59 L 63 60 Pulse Rate [ 60 Anterior Bilateral Throughout] Pulse Rate [ From Monitor] Respiratory 20 18 Rate Respiratory 18 Rate [Anterior Bilateral Throughout] Blood Pressure 130/64 O2 Sat by Pulse 97 98 Oximetry 07/29/17 07/29/17 07/29/17 07:45 09:35 10:00 Temperature Pulse Rate Pulse Rate [ 65 Anterior Bilateral Throughout] Pulse Rate [ 63 From Monitor] Respiratory 20 Rate Respiratory 20 Rate [Anterior Bilateral Throughout] Blood Pressure O2 Sat by Pulse 96 97 Oximetry 07/29/17 07/29/17 07/29/17 10:25 10:26 11:12 Temperature Pulse Rate 63 63 Pulse Rate [ 103 H Anterior Bilateral Throughout] Pulse Rate [ From Monitor] Respiratory Rate Respiratory 20 Rate [Anterior Bilateral Throughout] Blood Pressure 130/64 130/64 O2 Sat by Pulse Oximetry 07/29/17 07/29/17 11:22 12:09 Temperature Pulse Rate 87 Pulse Rate [ 94 H Anterior Bilateral Throughout] Pulse Rate [ From Monitor] Respiratory 20 Rate Respiratory 20 Rate [Anterior Bilateral Throughout] Blood Pressure 137/77 O2 Sat by Pulse 98 Oximetry Constitutional: no acute distress, alert, other (cachectic) Eyes: non-icteric ENT: oropharynx moist Neck: supple Effort: normal Ascultation: Bilateral: clear, diminished breath sounds Percussion: Bilateral: not dull Cardiovascular: regular rate and rhythm Gastrointestinal: normoactive bowel sounds, soft, non-tender, non-distended Integumentary: normal Extremities: no cyanosis, no edema, pink and warm Neurologic: normal mental status, non-focal exam, pupils equal and round, CN II- XII normal Psychiatric: mood appropriate, affect normal CBC and BMP: 07/28/17 05:29 07/28/17 05:29 ABG, PT/INR, D-dimer: ABG POC ABG pH 7.388 (7.35-7.45) 07/29/17 09:36 POC ABG pCO2 49.0 (35-45) H 07/29/17 09:36 POC ABG pO2 70 (80-105) L 07/29/17 09:36 POC ABG HCO3 29.5 07/29/17 09:36 POC ABG Total CO2 31 07/29/17 09:36 POC ABG O2 Sat 93 07/29/17 09:36 PT/INR, D-dimer PT 12.7 Sec. (12.2-14.9) 07/26/17 14:51 INR 0.91 (0.87-1.13) 07/26/17 14:51 D-Dimer 275.12 ng/mlDDU (0-234) H 07/26/17 14:51 Abnormal lab findings: Abnormal Labs 07/26/17 07/26/17 07/26/17 14:31 14:31 14:51 MCV MCH RDW Seg Neutrophils % Seg Neuts % (Manual) Lymphocytes % (Manual) Seg Neutrophils # Man Lymphocytes # (Manual) D-Dimer 275.12 H POC ABG pH POC ABG pCO2 POC ABG pO2 Carbon Dioxide 31 H Creatinine 0.5 L Glucose 113 H POC Glucose Magnesium Total Protein Albumin TSH 0.167 L 07/26/17 07/26/17 07/27/17 20:25 Unknown 08:57 MCV 98 H MCH RDW 12.3 L Seg Neutrophils % 76.4 H Seg Neuts % (Manual) Lymphocytes % (Manual) Seg Neutrophils # Man Lymphocytes # (Manual) D-Dimer POC ABG pH 7.316 L POC ABG pCO2 61.5 H POC ABG pO2 Carbon Dioxide Creatinine Glucose POC Glucose 201 H Magnesium Total Protein Albumin TSH 07/27/17 07/27/17 07/27/17 13:02 16:40 20:57 MCV MCH RDW Seg Neutrophils % Seg Neuts % (Manual) Lymphocytes % (Manual) Seg Neutrophils # Man Lymphocytes # (Manual) D-Dimer POC ABG pH POC ABG pCO2 POC ABG pO2 Carbon Dioxide Creatinine Glucose POC Glucose 219 H 196 H 163 H Magnesium Total Protein Albumin TSH 07/28/17 07/28/17 07/28/17 05:07 05:29 05:29 MCV 99 H MCH 34 H RDW 12.6 L Seg Neutrophils % Seg Neuts % (Manual) 90.0 H Lymphocytes % (Manual) 7.0 L Seg Neutrophils # Man 8.6 H Lymphocytes # (Manual) 0.7 L D-Dimer POC ABG pH 7.317 L POC ABG pCO2 62.1 H POC ABG pO2 109 H Carbon Dioxide Creatinine 0.4 L Glucose 140 H POC Glucose Magnesium 1.30 L Total Protein 5.4 L Albumin 3.5 L TSH 07/28/17 07/28/17 07/28/17 07:55 12:03 21:39 MCV MCH RDW Seg Neutrophils % Seg Neuts % (Manual) Lymphocytes % (Manual) Seg Neutrophils # Man Lymphocytes # (Manual) D-Dimer POC ABG pH POC ABG pCO2 POC ABG pO2 Carbon Dioxide Creatinine Glucose POC Glucose 148 H 129 H 118 H Magnesium Total Protein Albumin TSH 07/29/17 09:36 MCV MCH RDW Seg Neutrophils % Seg Neuts % (Manual) Lymphocytes % (Manual) Seg Neutrophils # Man Lymphocytes # (Manual) D-Dimer POC ABG pH POC ABG pCO2 49.0 H POC ABG pO2 70 L Carbon Dioxide Creatinine Glucose POC Glucose Magnesium Total Protein Albumin TSH
[2017-07-29 16:15] VITALS: BP 131/58
== END 2017-07-29 16:55 | disposition home health service (06) | DRG 189 ==
LOC: ED 14:13 → 4A 07-27 02:11
PROVIDERS: ADMIT Internal Medicine Geriatric Medicine; ATTEND Internal Medicine
PROC: 4A033R1 Measurement of Arterial Saturation, Peripheral, Percutaneous Approach (ICD-10-PCS; principal; 2017-07-26)
PROC: 5A09457 Assistance with Respiratory Ventilation, 24-96 Consecutive Hours, Continuous Positive Airway Pressure (ICD-10-PCS; 2017-07-27)
DX: J96.21 Acute and chronic respiratory failure with hypoxia (principal); J44.1 Chronic obstructive pulmonary disease with (acute) exacerbation; R64 Cachexia; Z68.1 Body mass index [BMI] 19.9 or less, adult; J44.0 Chronic obstructive pulmonary disease with (acute) lower respiratory infection; K21.9 Gastro-esophageal reflux disease without esophagitis; E03.9 Hypothyroidism, unspecified; I10 Essential (primary) hypertension; Z90.710 Acquired absence of both cervix and uterus; E04.9 Nontoxic goiter, unspecified; J96.22 Acute and chronic respiratory failure with hypercapnia; R13.10 Dysphagia, unspecified; J20.9 Acute bronchitis, unspecified; F17.200 Nicotine dependence, unspecified, uncomplicated
CPT/HCPCS: 36415; 36600; 71020; 71275; 80048; 80053; 82803; 82962; 83735; 83880; 84100; 84439; 84443; 84484; 85007; 85025; 85379; 85610; 85730; 93005; 93010; 94640; 94660; 94760; 96372; 99285; A9270-GY; J1650; J1815; J1956; J2930; Q9967

== ENCOUNTER 2017-10-10 10:04 | Day surgery (SDC) | payer MEDICARE ==
--- NOTE | 2017-10-10 11:48 | Anesthesia Day of Surgery ---
Anesthesia Day of Surgery - Day of Surgery Patient Examined: Yes Patient H&P Reviewed: Yes Patient is NPO: Yes Beta Blockers: No Cardiac Clearance: No Pulmonary Clearance: No
--- NOTE | 2017-10-10 11:49 | Anesthesia Consultation ---
Anesthesia Consult and Med Hx - Airway Anesthetic Teeth Evaluation: Good ROM Head & Neck: Adequate Mental/Hyoid Distance: Adequate Mallampati Class: Class III Intubation Access Assessment: Probably Good - Pulmonary Exam CTA: Yes (bilateral bases crackles) - Cardiac Exam Cardiac Exam: No Murmur - Pre-Operative Health Status ASA Pre-Surgery Classification: ASA3 Proposed Anesthetic Plan: MAC - Pulmonary Hx Smoking: Yes Hx Asthma: No SOB: Yes (with exertion) COPD: Yes Hx Pneumonia: Yes Hx Sleep Apnea: Yes - Cardiovascular System Hx Hypertension: Yes Hx Coronary Artery Disease: No Hx Heart Attack/AMI: No Hx Angina: No Hx Percutaneous Transluminal Coronary Angioplasty (PTCA): No Hx Pacemaker: No Hx Internal Defibrillator: No Hx Valvular Heart Disease: No Hx Heart Murmur: No Hx Peripheral Vascular Disease: No - Central Nervous System Hx Psychiatric Problems: No - Gastrointestinal Hx Ulcer: Yes Hx Gastroesophageal Reflux Disease: Yes (dysphagia) - Endocrine Hx Renal Disease: No Hx End Stage Renal Disease: No Hx Cirrhosis: No Hx Liver Disease: No Hx Insulin Dependent Diabetes: No Hx Non-Insulin Dependent Diabetes: No Hx Thyroid Disease: Yes (hypothyroid, TSH very low with High T4, need to decrease synthroid) Hx Hypothyroidism: Yes Hx Hyperthyroidism: No - Hematic Hx Anemia: Yes Hx Sickle Cell Disease: No - Other Systems Hx Alcohol Use: No Hx Substance Use: No Hx Cancer: No Hx Obesity: No
[2017-10-10] MEDS ORDERED: XYLOCAINE 2% INFILTRATI ONE (11:57)
[2017-10-10] MEDS ORDERED: DIPRIVAN 10 MG/ML IV ONE (11:57)
[2017-10-10] MEDS ORDERED: NACL 0.9% 1000 ML 1,000 ML IV SCH (12:00)
--- NOTE | 2017-10-10 12:20 | Short Stay Summary ---
Short Stay Documentation Date of service: 10/10/17 Narrative H&P: The patient presents for EGD and dilation for dysphagia to solid food. - History Past Medical History: arthritis, COPD, hypothyroidism, other (IBS) Past Surgical History: appendectomy, cholecystectomy, hysterectomy, bowel surgery Social history: no significant social history, no smoking, no alcohol abuse - Allergies and Medications Current Medications: Allergies No Known Allergies Allergy (Verified 02/04/16 12:01) Home Medications Medication Instructions Recorded Confirmed Last Taken Type RX: Amlodipine Besylate 10 mg PO QAM 07/29/16 07/26/17 10/09/17 History RX: LORazepam 2 mg PO QHS PRN 07/29/16 07/26/17 10/09/17 History RX: Simvastatin 20 mg PO QHS 07/29/16 07/26/17 10/09/17 History RX: Pantoprazole [Protonix TAB] 40 mg PO QDAY #30 tablet 08/03/16 07/26/1710/09 Rx RX: Diphenoxylate HCl/Atropine 1 each PO DAILY 06/02/17 07/26/17 10/09/17 History [Diphenoxylate-Atrop 2.5-0.025] RX: Propranolol [Inderal] 10 mg PO BID 06/02/17 07/26/17 07/26/17 History RX: ALBUTEROL NEB's [Proventil 2.5 mg IH QID 07/26/17 07/26/17 10/09/17 History 0.083% NEBS] RX: Benzonatate [Tessalon Perles] 100 mg PO Q8HR PRN 07/26/17 07/26/17 10/09/17 History RX: Oxycodone HCl/Acetaminophen 1 each PO Q6HR PRN 07/26/17 07/26/17 10/09/17 History [Percocet 7.5/325 mg] RX: Potassium Gluconate 500 mg PO QDAY 07/26/17 07/26/17 10/09/17 History Amoxicillin/Potassium Clav 1 each PO BID #14 tablet 07/29/17 Unknown Rx [Augmentin 875-125 Tablet] Prednisone [predniSONE 10 mg 10 mg PO .TAPER #1 tab.ds.pk 07/29/17 Unknown Rx (6-Day Pack, 21 Tabs)] RX: ALBUTEROL Inhaler [ProAir HFA 1 puff IH QID PRN 30 Days inha 07/29/17 Unknown Rx Inhaler] Tiotropium Br/Olodaterol HCl 4 gm IH DAILY 30 Days mist.inhal 07/29/17 Unknown Rx [Stiolto Respimat Inhal [place]] Active Medications Sodium Chloride (Nacl 0.9% 1000 Ml) 1,000 mls @ 75 mls/hr IV DIRECT KARTHIK - Physical exam General appearance: no acute distress, well-nourished HEENT: Atraumatic, PERRLA, EOMI, Mucous membr. moist/pink Lungs: Clear to auscultation, Normal air movement Breasts: deferred Heart: Regular rate, Normal S1, Normal S2, No murmurs, no Murmur Gastrointestinal: normoactive bowel sounds, no tenderness, no distended, no masses, no hepatomegaly, no splenomegaly Female Genitourinary: deferred Rectal Exam: deferred Extremities: no ischemia, pulses intact, pulses symmetrical, No edema, normal temperature, normal color Neurological: Normal gait, Normal speech, Strength at 5/5 X4 ext, Normal tone, Sensation intact, Cranial nerves 3-12 NL - Brief post op/procedure progress note Date of procedure: 10/10/17 Procedure: see dictated report Estimated blood loss: none Pathology: none Condition: stable - Disposition Condition at discharge: Good Disposition: DC-01 TO HOME OR SELFCARE - Discharge Diagnoses (1) Dysphagia Status: Acute Comment: no objective findings, dilated empirically in view of symptoms Short Stay Discharge Plan Activity: other (no driving for 24 hours) Weight Bearing Status: Weight Bear as Tolerated Diet: advance as tolerated Follow up with: ANTONY VILLATORO MD [Primary Care Provider] - 7 Days
--- NOTE | 2017-10-10 12:23 | Operative Report ---
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 Probable mild peptic stricture. Endoscopist: Dr. Wray Anesthesia: Monitored anesthesia care per anesthesia department Medications: Propofol per anesthesia Estimated blood loss: 0 After careful discussion of the nature and purpose of the procedure as well as details the technique risks benefits and alternatives consent was obtained. The patient was placed in the left lateral decubitus position and medicated per anesthesia. The tip of the [employer] EQ 570 video scope was passed per orum under direct vision into the esophagus and advanced into the stomach and descending duodenum. The descending duodenum the duodenal bulb and pylorus were symmetrical and normal. The scope was withdrawn into the stomach and the stomach then gently insufflated with air. The antrum was normal. The stomach was further insufflated and the scope was then retroflexed and partially withdrawn. There was a small hiatus hernia approximately 2 cm in size. The cardia, fundus, and body of the stomach were otherwise within normal limits and easily distensible.The scope was then withdrawn in the forward position. The esophagogastric junction was at 37 cm. A 1-2 cm area of suspected Grace's mucosa was present. Biopsies were not taken as the patient is not a good candidate for long-term surveillance due to significant comorbid conditions. No definite stricture was appreciated in the esophageal body The esophageal body was normal throughout. Empiric esophageal dilation was performed. A Marquez 42 Cuban dilator was passed with no resistance followed by a 50 Cuban dilator with mild resistance. The procedure was was well tolerated and the patient was observed in recovery. Impressions: Mild peptic stricture. Status post dilation to 50 Cuban Marquez. Small hiatus hernia. 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 Biopsies not taken. Plan: Continue PPI therapy. Redilate when necessary. Electronically signed: Zi Wray MD
[2017-10-10 12:42] VITALS: BP 123/74
--- NOTE | 2017-10-10 14:13 | Post Anesthesia Evaluation ---
- Post Anesthesia Evaluation Patient Participated: Yes Airway Patent: Yes Stable Respiratory Function: Yes Nausea/Vomiting: No Temp > 96.8F: Yes Pain Manageable: Yes Adequeate Hydration: Yes Anesthesia Complications: No Block Receding Appropriately: Not Applicable
== END 2017-10-10 10:05 | disposition home or self-care (01) ==
LOC: GIO 10:04
PROVIDERS: ATTEND Internal Medicine Gastroenterology
DX: K21.9 Gastro-esophageal reflux disease without esophagitis (principal); K58.9 Irritable bowel syndrome, unspecified; K44.9 Diaphragmatic hernia without obstruction or gangrene; J44.9 Chronic obstructive pulmonary disease, unspecified; M19.90 Unspecified osteoarthritis, unspecified site; E03.9 Hypothyroidism, unspecified; I10 Essential (primary) hypertension; F41.9 Anxiety disorder, unspecified; F32.9 Major depressive disorder, single episode, unspecified; Z90.710 Acquired absence of both cervix and uterus; Z90.49 Acquired absence of other specified parts of digestive tract; Z98.890 Other specified postprocedural states; Z79.899 Other long term (current) drug therapy; Z99.89 Dependence on other enabling machines and devices
CPT/HCPCS: 43239; 43248; J2704

== ENCOUNTER 2017-11-15 14:33 | Emergency (ER) | payer MEDICARE ==
[2017-11-15 15:36] LABS: Basophils # (Auto) 0.1 K/mm3 (0.0-0.1); Basophils % (Auto) 1.1 % (0.0-1.8); Eosinophils # (Auto) 0.3 K/mm3 (0.0-0.4); Eosinophils % (Auto) 3.7 % (0.0-4.3); Hematocrit 41.3 % (30.3-42.9); Hemoglobin 14.1 gm/dl (10.1-14.3); Lymphocytes # (Auto) 1.5 K/mm3 (1.2-5.4); Lymphocytes % (Auto) 21.6 % (13.4-35.0); Mean Corpuscular HGB Conc 34 % (30-34); Mean Corpuscular Hemoglobin 31 pg (28-32); Mean Corpuscular Volume 92 fl (79-97); Monocytes # (Auto) 0.6 K/mm3 (0.0-0.8); Monocytes % (Auto) 8.4 % (0.0-7.3); Platelet Count 162 K/mm3 (140-440); Red Blood Count 4.47 M/mm3 (3.65-5.03)
[2017-11-15 15:43] LABS: BUN/Creatinine Ratio 25; Blood Urea Nitrogen 10 mg/dL (7-17); Calcium 8.9 mg/dL (8.4-10.2); Hemolysis Index 13
[2017-11-15] MEDS ORDERED: TYLENOL PO ONE (18:38)
[2017-11-15] MEDS ORDERED: ULTRAM PO ONE (18:38)
[2017-11-15] MEDS ORDERED: DELTASONE PO ONE (18:45)
[2017-11-15] MEDS ORDERED: K-DUR PO ONE (18:45)
[2017-11-15 19:07] LABS: Bilirubin,Urine NEG (Negative); Blood,Urine NEG (Negative); Color,Urine Straw (Yellow); Mucus,Urine FEW /HPF; Protein,Urine <15 mg/dL mg/dL (Negative); Urobilinogen,Urine < 2.0 mg/dL (<2.0)
--- NOTE | 2017-11-15 19:13 | Emergency Department Report ---
ED General Adult HPI - General Chief complaint: Pain General Stated complaint: LT SIDE PAIN Time Seen by Provider: 11/15/17 17:53 Source: patient, EMS Mode of arrival: Stretcher Limitations: No Limitations - History of Present Illness Initial comments: 24 hours of nontraumatic left-sided sharp shooting pain that began in her legs and then spread to her arm into her chest. Symptoms are intermittent. Not affected by extremity movement. Patient does have history of chronic back issues. However, this is new for her. The patient is concerned that she could be having a heart attack. So, she came to the ER for evaluation. Denies fevers , nausea, vomiting, shortness of breath, belly pain, urinary symptoms. Able to ambulate w/o difficulty. Muscles feel fatigued. Severity scale (0 -10): 7 - Related Data Home Medications Medication Instructions Recorded Confirmed Last Taken Amlodipine Besylate 10 mg PO QAM 07/29/16 11/15/17 11/15/17 LORazepam 2 mg PO QHS PRN 07/29/16 11/15/17 10/09/17 Simvastatin 20 mg PO QHS 07/29/16 11/15/17 11/15/17 Diphenoxylate HCl/Atropine 1 each PO DAILY 06/02/17 11/15/17 10/09/17 [Diphenoxylate-Atrop 2.5-0.025] Propranolol [Inderal] 10 mg PO BID 06/02/17 11/15/17 11/15/17 ALBUTEROL NEB's [Proventil 0.083% 2.5 mg IH QID 07/26/17 11/15/17 11/15/17 NEBS] Benzonatate [Tessalon Perles] 100 mg PO Q8HR PRN 07/26/17 11/15/17 10/09/17 Oxycodone HCl/Acetaminophen 1 each PO Q6HR PRN 07/26/17 11/15/17 11/15/17 [Percocet 7.5/325 mg] Potassium Gluconate 500 mg PO QDAY 07/26/17 11/15/17 11/15/17 Aspirin [Lo-Dose Aspirin EC] 81 mg PO DAILY 11/15/17 11/15/17 11/15/17 Previous Rx's Medication Instructions Recorded Last Taken Type Pantoprazole [Protonix TAB] 40 mg PO QDAY #30 tablet 08/03/16 11/15/17 Rx ALBUTEROL Inhaler [ProAir HFA 1 puff IH QID PRN 30 Days inha 07/29/17 11/15/17 Rx Inhaler] Prednisone [predniSONE 10 mg 10 mg PO .TAPER #1 tab.ds.pk 07/29/17 11/15/17 Rx (6-Day Pack, 21 Tabs)] predniSONE [Deltasone] 40 mg PO QDAY #8 tab 11/15/17 Unknown Rx Allergies Allergy/AdvReac Type Severity Reaction Status Date / Time No Known Allergies Allergy Verified 02/04/16 12:01 ED Review of Systems ROS: Stated complaint: LT SIDE PAIN Other details as noted in HPI Comment: All other systems reviewed and negative Musculoskeletal: back pain, arthralgia, myalgia Neurological: weakness ED Past Medical Hx - Past Medical History Hx Hypertension: Yes Hx Heart Attack/AMI: No Hx Congestive Heart Failure: No Hx Diabetes: No Hx Deep Vein Thrombosis: No Hx Pulmonary Embolism: No Hx GERD: Yes Hx Liver Disease: No Hx Renal Disease: No Hx Sickle Cell Disease: No Hx Arthritis: Yes Hx Kidney Stones: No Hx Asthma: No Hx COPD: Yes Hx Tuberculosis: No Hx HIV: No Additional medical history: Hypothyrodism, hx of ulcers. - Surgical History Hx Coronary Stent: No Hx Open Heart Surgery: No Hx Pacemaker: No Hx Internal Defibrillator: No Hx Cholecystectomy: Yes Hx Appendectomy: Yes Hx Breast Surgery: Yes Additional Surgical History: hysterectomy, L ear surgery, pancreas, - Social History Smoking Status: Former Smoker Substance Use Type: None - Medications Home Medications: Home Medications Medication Instructions Recorded Confirmed Last Taken Type Amlodipine Besylate 10 mg PO QAM 07/29/16 11/15/17 11/15/17 History LORazepam 2 mg PO QHS PRN 07/29/16 11/15/17 10/09/17 History Simvastatin 20 mg PO QHS 07/29/16 11/15/17 11/15/17 History Pantoprazole [Protonix TAB] 40 mg PO QDAY #30 tablet 08/03/16 11/15/17 11/15/17 Rx Diphenoxylate HCl/Atropine 1 each PO DAILY 06/02/17 11/15/17 10/09/17 History [Diphenoxylate-Atrop 2.5-0.025] Propranolol [Inderal] 10 mg PO BID 06/02/17 11/15/17 11/15/17 History ALBUTEROL NEB's [Proventil 0.083% 2.5 mg IH QID 07/26/17 11/15/17 11/15/17 History NEBS] Benzonatate [Tessalon Perles] 100 mg PO Q8HR PRN 07/26/17 11/15/17 10/09/17 History Oxycodone HCl/Acetaminophen 1 each PO Q6HR PRN 07/26/17 11/15/17 11/15/17 History [Percocet 7.5/325 mg] Potassium Gluconate 500 mg PO QDAY 07/26/17 11/15/17 11/15/17 History ALBUTEROL Inhaler [ProAir HFA 1 puff IH QID PRN 30 Days inha 07/29/17 11/15/17 11/15/17 Rx Inhaler] Prednisone [predniSONE 10 mg 10 mg PO .TAPER #1 tab.ds.pk 07/29/17 11/15/17 Rx (6-Day Pack, 21 Tabs)] Aspirin [Lo-Dose Aspirin EC] 81 mg PO DAILY 11/15/17 11/15/17 11/15/17 History predniSONE [Deltasone] 40 mg PO QDAY #8 tab 11/15/17 Unknown Rx ED Physical Exam - General Limitations: No Limitations General appearance: alert, in no apparent distress - Head Head exam: Present: atraumatic, normocephalic - Eye Eye exam: Present: normal appearance - ENT ENT exam: Present: mucous membranes moist - Neck Neck exam: Present: normal inspection - Respiratory Respiratory exam: Present: normal lung sounds bilaterally. Absent: respiratory distress - Cardiovascular Cardiovascular Exam: Present: regular rate, normal rhythm. Absent: systolic murmur, diastolic murmur, rubs, gallop - GI/Abdominal GI/Abdominal exam: Present: soft, normal bowel sounds - Extremities Exam Extremities exam: Present: normal inspection, full ROM (bilateral upper/lower extremity strength 5/5. ) - Back Exam Back exam: Present: normal inspection, paraspinal tenderness, vertebral tenderness (diffuse T/L w/o skin changes) - Neurological Exam Neurological exam: Present: alert, oriented X3 - Psychiatric Psychiatric exam: Present: normal affect, normal mood - Skin Skin exam: Present: warm, dry, intact, normal color. Absent: rash ED Course Vital Signs 11/15/17 11/15/17 11/15/17 14:41 15:30 15:45 Temperature 98.6 F Pulse Rate 91 H 85 Respiratory 18 20 Rate Blood Pressure 138/55 150/77 Blood Pressure [Right] O2 Sat by Pulse 95 96 95 Oximetry 11/15/17 11/15/17 11/15/17 16:00 16:15 16:30 Temperature Pulse Rate 85 84 85 Respiratory 19 21 16 Rate Blood Pressure 150/77 144/71 144/71 Blood Pressure [Right] O2 Sat by Pulse 94 95 96 Oximetry 11/15/17 11/15/17 11/15/17 16:45 17:00 17:15 Temperature Pulse Rate 87 87 85 Respiratory 19 20 16 Rate Blood Pressure 139/67 139/71 Blood Pressure [Right] O2 Sat by Pulse 94 93 95 Oximetry 11/15/17 11/15/17 11/15/17 17:30 18:25 19:15 Temperature 98 F Pulse Rate 82 89 Respiratory 18 18 14 Rate Blood Pressure 136/66 Blood Pressure 136/100 [Right] O2 Sat by Pulse 93 93 93 Oximetry ED Medical Decision Making - Lab Data Result diagrams: 11/15/17 15:18 11/15/17 15:18 - EKG Data -: EKG Interpreted by Wi EKG shows normal: sinus rhythm, axis, QRS complexes, ST-T waves Rate: normal - EKG Data Interpretation: other (right bundle branch block) - Medical Decision Making 72-year-old female multiple comorbidities that presents with acute onset of left-sided sharp pain in her extremities. Patient with mild pain onvitals are stable. Physical exam significant for diffuse T and L-spine tenderness. Lab works and if needed for potassium at 3, which was repleted at the bedside. EKG with right bundle branch block. Troponin is negative 2. Low suspicion for ACS. Radicular symptoms from degenerative disc disease. Patient will be started on a steroid Dosepak and instructed follow-up with her family doctor for reevaluation. No evidence cauda equina. - Differential Diagnosis ACS, degenerative disc disease, dissection, electrolyte abnormality Critical care attestation.: If time is entered above; I have spent that time in minutes in the direct care of this critically ill patient, excluding procedure time. ED Disposition Clinical Impression: Hypokalemia, Radicular pain of left lower extremity, Radicular pain in left arm Disposition: - TO HOME OR SELFCARE Is pt being admited?: No Does the pt Need Aspirin: No Condition: Stable Additional Instructions: You can take 1000 mg tylenol every 6 hours as needed for pain relief. Follow up with your family doctor for re-evaluation of your left side pain. Prescriptions: predniSONE [Deltasone] 40 mg PO QDAY #8 tab Referrals: PRIMARY CARE, [Primary Care Provider] - 3-5 Days
--- NOTE | 2017-11-15 19:43 | Cat Scan Report ---
FINAL REPORT PROCEDURE: CT THORACIC SPINE WO CON TECHNIQUE: Computerized axial tomography of the thoracic spine was performed from C7 - L1 without contrast material. HISTORY: midline pain with radicular symptoms COMPARISON: No prior studies are available for comparison. FINDINGS: No fracture or subluxation is visualized. Mild diffuse degenerative disc disease is seen throughout the thoracic spine with mild disc space narrowing and small marginal osteophytic spurs. There is greater narrowing of the disc spaces at T8-T9 and T9-T10 consistent with moderate degenerative disc disease. Posterior elements are intact. No focal disc herniation or spinal stenosis is visualized. Moderate osteoarthritic changes are visualized at the articulation of the transverse process of T10 and the adjacent 10th ribs bilaterally right side greater than left. This is also seen on the right at T11. IMPRESSION: Mild degenerative disc disease seen throughout the thoracic spine, moderate degenerative disc changes are visualized at T8-T9 and T9-T10. No fracture or subluxation is seen. Moderate osteoarthritic changes seen at the articulation of the transverse process of T10 and ribs bilaterally and also the right transverse process of T11 and the right 11th rib.
--- NOTE | 2017-11-15 20:03 | Cat Scan Report ---
FINAL REPORT PROCEDURE: CT LUMBAR SPINE WO CON TECHNIQUE: Computerized axial tomography of the lumbar spine was performed from T12 to the sacrum without contrast material. HISTORY: midline pain with radicular symptoms COMPARISON: No prior studies are available for comparison. FINDINGS: No fractures visualized. There is severe disc space narrowing L3-4, L4-5 and L5-S1 disc spaces. Moderate disc space narrowing is seen at the L2-3 disc space. Vacuum disc phenomena are present at L2-3 through the L L4-5 disc spaces. Moderate facet arthritis is visualized at L3-4, L4-5 and L5-S1 levels. No evidence of spondylolysis. There is approximately 4.5 millimeter anterior subluxation L4 in relation L5. At the L4-5 level there appears to be a moderate size asymmetric disc bulge or herniation to the right. This appears to be compressing the right L5 nerve root. There is ligamentum flavum laxity at this level as well as severe facet arthritis. There is also a mild diffuse posterior disc bulge at the L2-3 and L3-4 disc spaces. Moderate facet arthritis visualized at the L3-4 level bilaterally, mild changes at the L2-3 level. IMPRESSION: No fracture is visualized. There is degenerative anterior subluxation L4 in relation L5 approximately 4.5 millimeters. Facet arthritis present as described. No evidence of spondylolysis. Degenerative disc disease L2-3 through L5-S1 level. Moderate sized asymmetric disc bulge or herniation to the right at the L4-5 level. This appears to be compressing the descending right L5 nerve root. Disc bulges are present at L2-3 and L3-4.
[2017-11-15 21:16] VITALS: BP 141/67
== END 2017-11-15 20:45 | disposition home or self-care (01) ==
LOC: ED 14:33
DX: M79.605 Pain in left leg (principal); E87.6 Hypokalemia; M79.602 Pain in left arm; I10 Essential (primary) hypertension; K21.9 Gastro-esophageal reflux disease without esophagitis; J44.9 Chronic obstructive pulmonary disease, unspecified
CPT/HCPCS: 36415; 72128; 72131; 80048; 81001; 84484; 85025; 93005; 93010; 99285; J7512

== ENCOUNTER 2017-12-24 11:46 | Inpatient (IN) | payer MEDICARE ==
[2017-12-24] MEDS ORDERED: PROVENTIL IH ONE ×2 (12:13→14:59)
[2017-12-24] MEDS ORDERED: ATROVENT IH ONE ×2 (12:13→14:59)
[2017-12-24] MEDS ORDERED: MAGNESIUM SULFATE 2GM/50ML 2 GM/50 ML BAG IV ONE (12:14)
[2017-12-24] MEDS ORDERED: TESSALON PERLES PO ONE (12:15)
--- NOTE | 2017-12-24 12:22 | Emergency Department Report ---
HPI - General Chief Complaint: Dyspnea/Respdistress Time Seen by Provider: 12/24/17 12:08 - HPI HPI: Room 2 The patient is a 72-year-old female presented with a chief complaint of shortness of breath. The patient states she awakened this morning with shortness of breath and wheezing. The patient has a history of COPD and states she is normally on oxygen at night when sleeping. The patient states she awakened this morning with her oxygen but still felt short of breath. The patient states she developed a cough productive of yellow sputum last night. The patient admits to rhinorrhea for the past 2 weeks. Patient denies any history of fever. HPI update 13:18 Family and bedside and now able to provide further history. Family states the patient had a syncopal episode last night. Parents states the patient had walked towards a doorway when she suddenly collapsed and was unresponsive for several seconds. Family got her up and the patient improved. The patient does not remember this event occurring Location: Lungs Duration: Onset this morning Quality: Shortness of breath, wheezing Severity: Moderate Modifying factors: [see above] Context: [see above] Mode of transportation: [not driving] ED Past Medical Hx - Past Medical History Previous Medical History?: Yes Hx Hypertension: Yes Hx GERD: Yes Hx Arthritis: Yes Hx COPD: Yes Additional medical history: Hypothyrodism, hx of ulcers. - Surgical History Past Surgical History?: Yes Hx Cholecystectomy: Yes Hx Appendectomy: Yes Hx Breast Surgery: Yes Additional Surgical History: hysterectomy, L ear surgery, bowel resection, lysis of adhesions - Family History Family history: no significant - Social History Smoking Status: Former Smoker (none 2 years) Substance Use Type: None - Medications Home Medications: Home Medications Medication Instructions Recorded Confirmed Last Taken Type Amlodipine Besylate 10 mg PO QAM 07/29/16 11/15/17 11/15/17 History LORazepam 2 mg PO QHS PRN 07/29/16 11/15/17 10/09/17 History Simvastatin 20 mg PO QHS 07/29/16 11/15/17 11/15/17 History Pantoprazole [Protonix TAB] 40 mg PO QDAY #30 tablet 08/03/16 11/15/17 11/15/17 Rx Diphenoxylate HCl/Atropine 1 each PO DAILY 06/02/17 11/15/17 10/09/17 History [Diphenoxylate-Atrop 2.5-0.025] Propranolol [Inderal] 10 mg PO BID 06/02/17 11/15/17 11/15/17 History ALBUTEROL NEB's [Proventil 0.083% 2.5 mg IH QID 07/26/17 11/15/17 11/15/17 History NEBS] Benzonatate [Tessalon Perles] 100 mg PO Q8HR PRN 07/26/17 11/15/17 10/09/17 History Oxycodone HCl/Acetaminophen 1 each PO Q6HR PRN 07/26/17 11/15/17 11/15/17 History [Percocet 7.5/325 mg] Potassium Gluconate 500 mg PO QDAY 07/26/17 11/15/17 11/15/17 History ALBUTEROL Inhaler [ProAir HFA 1 puff IH QID PRN 30 Days inha 07/29/17 11/15/17 11/15/17 Rx Inhaler] Prednisone [predniSONE 10 mg 10 mg PO .TAPER #1 tab.ds.pk 07/29/17 11/15/17 Rx (6-Day Pack, 21 Tabs)] Aspirin [Lo-Dose Aspirin EC] 81 mg PO DAILY 11/15/17 11/15/17 11/15/17 History predniSONE [Deltasone] 40 mg PO QDAY #8 tab 11/15/17 Unknown Rx ED Review of Systems ROS: Stated complaint: AMANDA Other details as noted in HPI Constitutional: denies: fever Eyes: denies: eye pain Respiratory: cough, shortness of breath, wheezing Cardiovascular: denies: chest pain Gastrointestinal: denies: abdominal pain Genitourinary: denies: dysuria Musculoskeletal: back pain, myalgia Neurological: denies: headache Physical Exam - Physical Exam Vital Signs: Vital Signs 12/24/17 12/24/17 11:56 12:11 Temperature 97.8 F Pulse Rate 102 H Respiratory 22 22 Rate Blood Pressure 117/55 O2 Sat by Pulse 98 98 Oximetry Physical Exam: GENERAL: The patient is well-developed well-nourished female lying on stretcher exhibiting occasional cough but not appearing to be in acute distress. [] HEENT: Normocephalic. Atraumatic. Extraocular motions are intact. Patient has moist mucous membranes. NECK: Supple. CHEST/LUNGS: Diffuse wheezing. HEART/CARDIOVASCULAR: Regular. There is no tachycardia. There is no gallop rub or murmur. ABDOMEN: Abdomen is soft, nontender. Patient has normal bowel sounds. There is no abdominal distention. SKIN: There is no rash. There is no diaphoresis. NEURO: The patient is awake, alert, and oriented. The patient is cooperative. The patient has normal speech MUSCULOSKELETAL: There is no evidence of acute injury. ED Course Vital Signs 12/24/17 12/24/17 11:56 12:11 Temperature 97.8 F Pulse Rate 102 H Respiratory 22 22 Rate Blood Pressure 117/55 O2 Sat by Pulse 98 98 Oximetry ED Medical Decision Making - Lab Data Result diagrams: 12/24/17 12:24 12/24/17 12:24 Laboratory Tests 12/24/17 12/24/17 12/24/17 12:24 12:24 13:16 WBC 9.0 RBC 4.31 Hgb 13.6 Hct 39.9 MCV 93 MCH 32 MCHC 34 RDW 13.1 L Plt Count 155 Lymph % (Auto) 10.9 L Foster % (Auto) 9.0 H Eos % (Auto) 4.3 Baso % (Auto) 0.4 Lymph # 1.0 L Foster # 0.8 Eos # 0.4 Baso # 0.0 Seg Neutrophils % 75.4 H Seg Neutrophils # 6.8 Sodium 144 Potassium 3.1 L Chloride 98.9 Carbon Dioxide 34 H Anion Gap 14 BUN 10 Creatinine 0.5 L Estimated GFR > 60 BUN/Creatinine Ratio 20 Glucose 139 H Calcium 8.3 L Total Creatine Kinase 59 CK-MB (CK-2) 2.6 CK-MB (CK-2) Rel Index 4.4 H Troponin T < 0.010 - EKG Data -: EKG Interpreted by Md EKG shows normal: sinus rhythm Rate: normal - EKG Data When compared to previous EKG there are: no significant change Interpretation: unchanged when compared t (11/15/2017) - Radiology Data Radiology results: report reviewed (CT head), image reviewed (CT head) CT head (read by radiologist)-no CT evidence of acute intracranial abnormality - Differential Diagnosis COPD exacerbation, acute bronchitis, pneumonia, Critical care attestation.: If time is entered above; I have spent that time in minutes in the direct care of this critically ill patient, excluding procedure time. ED Disposition Clinical Impression: COPD with acute exacerbation, Shortness of breath, Syncope Disposition: OP ADMIT IP TO THIS HOSP Is pt being admited?: Yes Condition: Fair Instructions: Syncope (ED), Chronic Obstructive Pulmonary Disease (ED) Referrals: PRIMARY CARE, [Primary Care Provider] - 3-5 Days Time of Disposition: 14:44 (hospitalist paged (Dr Gonzalez))
[2017-12-24 12:45] LABS: Basophils % (Auto) 0.4 % (0.0-1.8); Eosinophils # (Auto) 0.4 K/mm3 (0.0-0.4); Eosinophils % (Auto) 4.3 % (0.0-4.3); Hematocrit 39.9 % (30.3-42.9); Hemoglobin 13.6 gm/dl (10.1-14.3); Lymphocytes % (Auto) 10.9 % (13.4-35.0); Mean Corpuscular HGB Conc 34 % (30-34); Mean Corpuscular Hemoglobin 32 pg (28-32); Mean Corpuscular Volume 93 fl (79-97); Monocytes # (Auto) 0.8 K/mm3 (0.0-0.8); Platelet Count 155 K/mm3 (140-440); Red Blood Count 4.31 M/mm3 (3.65-5.03); Red Cell Distribution Width 13.1 % (13.2-15.2)
[2017-12-24 13:06] LABS: BUN/Creatinine Ratio 20; Blood Urea Nitrogen 10 mg/dL (7-17); Calcium 8.3 mg/dL (8.4-10.2); Hemolysis Index 11
[2017-12-24] MEDS ORDERED: K-DUR PO ONE (13:10)
[2017-12-24 13:51] LABS: Creatine Kinase MB 2.6 ng/mL (0.0-4.0)
--- NOTE | 2017-12-24 14:35 | Cat Scan Report ---
FINAL REPORT PROCEDURE: CT HEAD/BRAIN WO CON TECHNIQUE: Computerized tomography of the head was performed without contrast material. HISTORY: syncope COMPARISON: 06/02/2017 FINDINGS: There is focal chronic appearing lacunar infarct in the left basal ganglia. No CT evidence of intracranial mass, hemorrhage, acute territorial infarction, or hydrocephalus. The intracranial arteries are symmetric in density. Calvarium is intact. There is a small amount of fluid in the left maxillary sinus. Mastoids are aerated. IMPRESSION: No CT evidence of acute intracranial abnormality
--- NOTE | 2017-12-24 19:07 | History and Physical Report ---
History of Present Illness Date of examination: 12/24/17 Date of admission: 12/24/17 16:44 Chief complaint: Chief complaint: Increasing shortness of breath and wheezing for 3 days History of present illness: JUSTIN: 72-year-old female with history of COPD hypertension GERD osteoarthritis and peptic ulcer disease comes in for increasing shortness of breath of 3 days' duration associated with wheezing and cough. Patient is on oxygen at home. Call for Dr. Camacho to yellow sputum. No fever no chills. Patient has been having running nose for the last 2 weeks. No chest pain. Family says that the patient has syncopal episode last night but the patient does not confirm it. Apparently she was brought into the doorway and collapse and was unresponsive for a few seconds. No chest pain no diaphoresis no palpitations. No exacerbating or relieving factors. Past Medical History Previous Medical History?: Yes Hx Hypertension: Yes Hx GERD: Yes Hx Arthritis: Yes Hx COPD: Yes Additional medical history: Hypothyrodism, hx of ulcers. - Surgical History Past Surgical History?: Yes Hx Cholecystectomy: Yes Hx Appendectomy: Yes Hx Breast Surgery: Yes Additional Surgical History: hysterectomy, L ear surgery, bowel resection, lysis of adhesions - Family History Family history: no significant - Social History Smoking Status: Former Smoker (none 2 years) Substance Use Type: None - Medications Home Medications: Home Medications Medication Instructions Recorded Confirmed Last Taken Type Amlodipine Besylate 10 mg PO QAM 07/29/16 11/15/17 11/15/17 History LORazepam 2 mg PO QHS PRN 07/29/16 11/15/17 10/09/17 History Simvastatin 20 mg PO QHS 07/29/16 11/15/17 11/15/17 History Pantoprazole [Protonix TAB] 40 mg PO QDAY #30 tablet 08/03/16 11/15/17 11/15/17 Rx Diphenoxylate HCl/Atropine 1 each PO DAILY 06/02/17 11/15/17 10/09/17 History [Diphenoxylate-Atrop 2.5-0.025] Propranolol [Inderal] 10 mg PO BID 06/02/17 11/15/17 11/15/17 History ALBUTEROL NEB's [Proventil 0.083% 2.5 mg IH QID 07/26/17 11/15/17 11/15/17 History NEBS] Benzonatate [Tessalon Perles] 100 mg PO Q8HR PRN 07/26/17 11/15/17 10/09/17 History Oxycodone HCl/Acetaminophen 1 each PO Q6HR PRN 07/26/17 11/15/17 11/15/17 History [Percocet 7.5/325 mg] Potassium Gluconate 500 mg PO QDAY 07/26/17 11/15/17 11/15/17 History ALBUTEROL Inhaler [ProAir HFA 1 puff IH QID PRN 30 Days inha 07/29/17 11/15/17 11/15/17 Rx Inhaler] Prednisone [predniSONE 10 mg 10 mg PO .TAPER #1 tab.ds.pk 07/29/17 11/15/17 Rx (6-Day Pack, 21 Tabs)] Aspirin [Lo-Dose Aspirin EC] 81 mg PO DAILY 11/15/17 11/15/17 11/15/17 History predniSONE [Deltasone] 40 mg PO QDAY #8 tab 11/15/17 Unknown Rx Review of Systems ROS: Stated complaint: AMANDA Other details as noted in HPI Constitutional: denies: fever Eyes: denies: eye pain Respiratory: cough, shortness of breath, wheezing Cardiovascular: denies: chest pain Gastrointestinal: denies: abdominal pain Genitourinary: denies: dysuria Musculoskeletal: back pain, myalgia Neurological: denies: headache 14 point review of systems----otherwise negative Medications and Allergies Allergies Allergy/AdvReac Type Severity Reaction Status Date / Time No Known Allergies Allergy Verified 02/04/16 12:01 Home Medications Medication Instructions Recorded Confirmed Last Taken Type Amlodipine Besylate 10 mg PO QAM 07/29/16 11/15/17 11/15/17 History LORazepam 2 mg PO QHS PRN 07/29/16 11/15/17 10/09/17 History Simvastatin 20 mg PO QHS 07/29/16 11/15/17 11/15/17 History Pantoprazole [Protonix TAB] 40 mg PO QDAY #30 tablet 08/03/16 11/15/17 11/15/17 Rx Diphenoxylate HCl/Atropine 1 each PO DAILY 06/02/17 11/15/17 10/09/17 History [Diphenoxylate-Atrop 2.5-0.025] Propranolol [Inderal] 10 mg PO BID 06/02/17 11/15/17 11/15/17 History ALBUTEROL NEB's [Proventil 0.083% 2.5 mg IH QID 07/26/17 11/15/17 11/15/17 History NEBS] Benzonatate [Tessalon Perles] 100 mg PO Q8HR PRN 07/26/17 11/15/17 10/09/17 History Oxycodone HCl/Acetaminophen 1 each PO Q6HR PRN 07/26/17 11/15/17 11/15/17 History [Percocet 7.5/325 mg] Potassium Gluconate 500 mg PO QDAY 07/26/17 11/15/17 11/15/17 History ALBUTEROL Inhaler [ProAir HFA 1 puff IH QID PRN 30 Days inha 07/29/17 11/15/17 11/15/17 Rx Inhaler] Prednisone [predniSONE 10 mg 10 mg PO .TAPER #1 tab.ds.pk 07/29/17 11/15/17 Rx (6-Day Pack, 21 Tabs)] Aspirin [Lo-Dose Aspirin EC] 81 mg PO DAILY 11/15/17 11/15/17 11/15/17 History predniSONE [Deltasone] 40 mg PO QDAY #8 tab 11/15/17 Unknown Rx Exam - Physical Exam Narrative exam: Patient laying in bed comfortably in slight distress - Constitutional Vitals: Temp Pulse Resp BP Pulse Ox 97.6 F 86 18 114/53 98 12/24/17 18:18 12/24/17 18:00 12/24/17 18:00 12/24/17 18:00 12/24/17 18:00 General appearance: Present: mild distress, well-nourished - EENT Eyes: Present: PERRL ENT: hearing intact, clear oral mucosa - Neck Neck: Present: supple, normal ROM - Respiratory Respiratory effort: normal Respiratory: bilateral: diminished, rales, rhonchi - Cardiovascular Heart rate: 80 Rhythm: regular Heart Sounds: Present: S1 & S2. Absent: rub, click - Extremities Extremities: pulses symmetrical, No edema Peripheral Pulses: within normal limits - Abdominal General gastrointestinal: Present: soft, non-tender, non-distended, normal bowel sounds Female genitourinary: Present: normal - Rectal Rectal Exam: deferred - Integumentary Integumentary: Present: clear, warm, dry - Musculoskeletal Musculoskeletal: gait normal, strength equal bilaterally - Psychiatric Psychiatric: appropriate mood/affect, intact judgment & insight - Neurologic Neurologic: CNII-XII intact, moves all extremities - Allied Health Allied health notes reviewed: nursing, case management Results - Labs CBC & Chem 7: 12/24/17 12:24 12/24/17 12:24 Labs: Laboratory Last Values WBC 9.0 K/mm3 (4.5-11.0) 12/24/17 12:24 RBC 4.31 M/mm3 (3.65-5.03) 12/24/17 12:24 Hgb 13.6 gm/dl (10.1-14.3) 12/24/17 12:24 Hct 39.9 % (30.3-42.9) 12/24/17 12:24 MCV 93 fl (79-97) 12/24/17 12:24 MCH 32 pg (28-32) 12/24/17 12:24 MCHC 34 % (30-34) 12/24/17 12:24 RDW 13.1 % (13.2-15.2) L 12/24/17 12:24 Plt Count 155 K/mm3 (140-440) 12/24/17 12:24 Lymph % (Auto) 10.9 % (13.4-35.0) L 12/24/17 12:24 [place] % (Auto) 9.0 % (0.0-7.3) H 12/24/17 12:24 Eos % (Auto) 4.3 % (0.0-4.3) 12/24/17 12:24 Baso % (Auto) 0.4 % (0.0-1.8) 12/24/17 12:24 Lymph # 1.0 K/mm3 (1.2-5.4) L 12/24/17 12:24 [place] # 0.8 K/mm3 (0.0-0.8) 12/24/17 12:24 Eos # 0.4 K/mm3 (0.0-0.4) 12/24/17 12:24 Baso # 0.0 K/mm3 (0.0-0.1) 12/24/17 12:24 Seg Neutrophils % 75.4 % (40.0-70.0) H 12/24/17 12:24 Seg Neutrophils # 6.8 K/mm3 (1.8-7.7) 12/24/17 12:24 Sodium 144 mmol/L (137-145) 12/24/17 12:24 Potassium 3.1 mmol/L (3.6-5.0) L 12/24/17 12:24 Chloride 98.9 mmol/L (98-107) 12/24/17 12:24 Carbon Dioxide 34 mmol/L (22-30) H 12/24/17 12:24 Anion Gap 14 mmol/L 12/24/17 12:24 BUN 10 mg/dL (7-17) 12/24/17 12:24 Creatinine 0.5 mg/dL (0.7-1.2) L 12/24/17 12:24 Estimated GFR > 60 ml/min 12/24/17 12:24 BUN/Creatinine Ratio 20 % 12/24/17 12:24 Glucose 139 mg/dL (65-100) H 12/24/17 12:24 Calcium 8.3 mg/dL (8.4-10.2) L 12/24/17 12:24 Total Creatine Kinase 59 units/L (30-135) 12/24/17 13:16 CK-MB (CK-2) 2.6 ng/mL (0.0-4.0) 12/24/17 13:16 CK-MB (CK-2) Rel Index 4.4 (0-4) H 12/24/17 13:16 Troponin T < 0.010 ng/mL (0.00-0.029) 12/24/17 13:16 - Imaging and Cardiology EKG: report reviewed (sinus rhythm heart rate of 87/m right bundle branch block) Chest x-ray: report reviewed (COPD no acute findings) CT Scan - head: report reviewed (no acute findings) Assessment and Plan Advance Directives: Yes (Full code) VTE prophylaxis?: Chemical Plan of care discussed with patient/family: Yes - Patient Problems (1) Acute and chronic respiratory failure with hypoxia Current Visit: No Status: Acute Plan to address problem: Patient was hypoxic initially Clinical picture consistent with acute respiratory failure Nebulizer treatments and IV Solu-Medrol and IV antibiotics for now BiPAP if necessary Intubation if necessary Pulmonary consult requested (2) COPD with acute exacerbation Current Visit: Yes Status: Acute Plan to address problem: Nebulizer treatments IV antibiotics and IV Solu-Medrol for now (3) HTN (hypertension) Current Visit: Yes Status: Chronic Qualifiers: Hypertension type: essential hypertension Qualified Code(s): I10 - Essential (primary) hypertension Plan to address problem: Continue antihypertensives (4) Hyperlipidemia Current Visit: Yes Status: Chronic Qualifiers: Hyperlipidemia type: mixed hyperlipidemia Qualified Code(s): E78.2 - Mixed hyperlipidemia Plan to address problem: Continue statins (5) GERD (gastroesophageal reflux disease) Current Visit: Yes Status: Chronic Qualifiers: Esophagitis presence: without esophagitis Qualified Code(s): K21.9 - Gastro -esophageal reflux disease without esophagitis Plan to address problem: Continue Protonix (6) Hypokalemia Current Visit: Yes Status: Acute Plan to address problem: Supplemented (7) DVT prophylaxis Current Visit: Yes Status: Acute Plan to address problem: Heparin 5000 units subcutaneously every 12 hours
[2017-12-24] MEDS ORDERED: TYLENOL PO PRN (19:30)
[2017-12-24] MEDS ORDERED: ZOFRAN IV PRN (19:30)
[2017-12-24] MEDS ORDERED: DUONEB *Not for PRN Use IH (19:32)
--- NOTE | 2017-12-24 20:57 | Consultation ---
History of Present Illness Consult date: 12/24/17 Reason for consult: cough, COPD, other (Syncopal episode.) History of present illness: PULMONARY AND CRITICAL CARE CONSULTATION Dr. Gonzalez thank you for asking us to participate in the care of this patient. 72-year-old female with history of COPD hypertension GERD osteoarthritis and peptic ulcer disease comes in for increasing shortness of breath of 3 days' duration associated with wheezing and cough. Patient is on oxygen at home. Patient has productive cough with yellow sputum. No fever no chills. Patient has been having running nose for the last 2 weeks. No chest pain. Family says that the patient has syncopal episode last night and Apparently she was brought into the doorway and collapse and was unresponsive for a few seconds. No chest pain no diaphoresis no palpitations. Patient has history of smoking 1/2 a pack x 20 years.. Stopped smoking 2 years ago. Denies alcohol or drug abuse.No known drug allergies. Worked in [employer]. Patient has 3 children. Patient has multiple surgeries, cholecystectomy,appendectomy, hysterectomy , breast surgery, abdominal surgery partial colectomy and lysis of adbesions. Patient presently resting on 2 litres O2. O2 saturation 97%.No acute respiratory distress at this time. Obtaining ABGs. Past History Past Medical History: arthritis, COPD, GERD, hypertension, hyperlipidemia Past Surgical History: hysterectomy Social history: denies: smoking (Stopped smoking 2 years ago.), alcohol abuse, prescription drug abuse Medications and Allergies Allergies Allergy/AdvReac Type Severity Reaction Status Date / Time No Known Allergies Allergy Verified 02/04/16 12:01 Home Medications Medication Instructions Recorded Confirmed Last Taken Type Amlodipine Besylate 10 mg PO QAM 07/29/16 11/15/17 11/15/17 History LORazepam 2 mg PO QHS PRN 07/29/16 11/15/17 10/09/17 History Simvastatin 20 mg PO QHS 07/29/16 11/15/17 11/15/17 History ALBUTEROL NEB's [Proventil 0.083% 2.5 mg IH QID 07/26/17 11/15/17 11/15/17 History NEBS] Benzonatate [Tessalon Perles] 100 mg PO Q8HR PRN 07/26/17 11/15/17 10/09/17 History Oxycodone HCl/Acetaminophen 1 each PO Q6HR PRN 07/26/17 11/15/17 11/15/17 History [Percocet 7.5/325 mg] Potassium Gluconate 500 mg PO QDAY 07/26/17 11/15/17 11/15/17 History ALBUTEROL Inhaler [ProAir HFA 1 puff IH QID PRN 30 Days inha 07/29/17 11/15/17 11/15/17 Rx Inhaler] Aspirin [Lo-Dose Aspirin EC] 81 mg PO DAILY 11/15/17 11/15/17 11/15/17 History Loratadine [Claritin] 10 mg PO DAILY 12/24/17 12/24/17 12/24/17 History Methimazole [Tapazole] 5 mg PO QDAY 12/24/17 12/24/17 12/24/17 History Pantoprazole [Protonix TAB] 40 mg PO BID 12/24/17 12/24/17 12/24/17 History Active Meds: Active Medications Acetaminophen (Tylenol) 650 mg PO Q4H PRN PRN Reason: Pain MILD(1-3)/Fever >100.5/GARNER Albuterol/Ipratropium (Duoneb *Not For Prn Use*) 1 ampul IH QIDRT KARTHIK Heparin Sodium (Porcine) (Heparin) 5,000 unit SUB-Q Q12HR KARTHIK Levofloxacin/Dextrose (Levaquin 750mg/150ml) 750 mg in 150 mls @ 100 mls/hr IV Q24HR KARTHIK; Protocol Methylprednisolone Sodium Succinate (Solu-Medrol) 125 mg IV Q8HR KARTHIK Morphine Sulfate (Morphine) 2 mg IV Q4H PRN PRN Reason: Pain, Moderate (4-6) Ondansetron HCl (Zofran) 4 mg IV Q8H PRN PRN Reason: Nausea And Vomiting Oxycodone/Acetaminophen (Percocet 5/325) 1 tab PO Q6H PRN PRN Reason: Pain, Moderate (4-6) Sodium Chloride (Sodium Chloride Flush Syringe 10 Ml) 10 ml IV BID KARTHIK Sodium Chloride (Sodium Chloride Flush Syringe 10 Ml) 10 ml IV PRN PRN PRN Reason: LINE FLUSH Zolpidem Tartrate (Ambien) 5 mg PO QHS PRN PRN Reason: Insomnia Review of Systems All systems: negative Physical Examination Vital signs: Vital Signs Temp Pulse Resp BP Pulse Ox 97.8 F 102 H 22 117/55 98 12/24/17 11:56 12/24/17 11:56 12/24/17 11:56 12/24/17 11:56 12/24/17 11:56 General appearance: no acute distress, alert Eyes: non-icteric ENT: oropharynx moist Neck: supple, no JVD Ascultation: Bilateral: diminished breath sounds, other (Prolonged expiratory phase.) Cardiovascular: regular rate and rhythm Gastrointestinal: normoactive bowel sounds, soft, non-tender Integumentary: normal Extremities: no cyanosis Musculoskeletal: no deformities Gait: other (Can not assess at this time.) normal mental status, non-focal exam, pupils equal and round, CN II-XII normal mood appropriate Results - Laboratory Findings CBC and BMP: 12/24/17 12:24 12/24/17 12:24 Abnormal lab findings: Abnormal Labs 12/24/17 12/24/17 12/24/17 12:24 12:24 13:16 RDW 13.1 L Lymph % (Auto) 10.9 L [place] % (Auto) 9.0 H Lymph # 1.0 L Seg Neutrophils % 75.4 H Potassium 3.1 L Carbon Dioxide 34 H Creatinine 0.5 L Glucose 139 H Calcium 8.3 L CK-MB (CK-2) Rel Index 4.4 H - Diagnostic Findings Chest x-ray: report reviewed (Hyperinflation, no acute cardiopulmonary process.) Assessment and Plan 72-year-old female with history of COPD hypertension GERD osteoarthritis and peptic ulcer disease comes in for increasing shortness of breath of 3 days' duration associated with wheezing and cough. Patient is on oxygen at home. Patient has productive cough with yellow sputum. No fever no chills. Patient has been having running nose for the last 2 weeks. No chest pain. Family says that the patient has syncopal episode last night and Apparently she was brought into the doorway and collapse and was unresponsive for a few seconds. No chest pain no diaphoresis no palpitations. Patient has history of smoking 1/2 a pack x 20 years.. Stopped smoking 2 years ago. Denies alcohol or drug abuse.No known drug allergies. Worked in [employer]. Patient has 3 children. Patient has multiple surgeries, cholecystectomy,appendectomy, hysterectomy , breast surgery, abdominal surgery partial colectomy and lysis of adhesions. Patient presently resting on 2 litres O2. O2 saturation 97%.No acute respiratory distress at this time. Obtaining ABGs. - Patient Problems (1) COPD with acute exacerbation Current Visit: Yes Status: Acute Plan to address problem: O2 2 litres via nasal canula. Albuterol/atrovent aerosol treatments Continue I/V solumedrol Continue Levaquin Continue S/C Heparin. ABGs on room air. (2) GERD (gastroesophageal reflux disease) Current Visit: Yes Status: Chronic Qualifiers: Esophagitis presence: without esophagitis Qualified Code(s): K21.9 - Gastro -esophageal reflux disease without esophagitis Plan to address problem: Management as per primary care. Patient having some nause. Patient is on Zofran. (3) HTN (hypertension) Current Visit: Yes Status: Chronic Qualifiers: Hypertension type: essential hypertension Qualified Code(s): I10 - Essential (primary) hypertension Plan to address problem: Management as per primary care. (4) Syncope Current Visit: Yes Status: Acute Plan to address problem: Work up and management as per primary care. (5) Hyperlipidemia Current Visit: Yes Status: Chronic Qualifiers: Hyperlipidemia type: mixed hyperlipidemia Qualified Code(s): E78.2 - Mixed hyperlipidemia Plan to address problem: Management as per primary care.
[2017-12-24] MEDS: DUONEB *Not for PRN Use IH SCH (21:13)
--- NOTE | 2017-12-24 21:44 | XRay Report ---
FINAL REPORT PROCEDURE: XR CHEST 1V AP TECHNIQUE: Chest radiograph anteroposterior view. CPT 79384 HISTORY: Shortness of breath. Cough. COMPARISON: Chest radiograph dated 08/11/2016. FINDINGS: Heart: Normal. Mediastinum/Vessels: Mild aortic calcification and tortuosity. Lungs/Pleural space: Hyperinflation. Bony thorax: Mild degenerative changes of the spine. Life support devices: None. IMPRESSION: No radiographic evidence of acute cardiopulmonary disease. Hyperinflation suggests obstructive physiology.
[2017-12-24] MEDS: PERCOCET 5/325 PO PRN (22:11)
[2017-12-24] MEDS: HEPARIN SUB-Q SCH (22:15)
[2017-12-24] MEDS: LEVAQUIN 750MG/150ML 750 MG/150 ML BAG IV SCH (22:15)
[2017-12-24] MEDS: SODIUM CHLORIDE FLUSH SYRINGE 10 ML IV SCH (22:15)
[2017-12-25] MEDS: AMBIEN PO PRN (00:16)
[2017-12-25] MEDS: PERCOCET 5/325 PO PRN ×2 (03:40→10:18)
[2017-12-25 04:35] LABS: Hematocrit 38.2 % (30.3-42.9); Hemoglobin 12.7 gm/dl (10.1-14.3); Mean Corpuscular HGB Conc 33 % (30-34); Mean Corpuscular Hemoglobin 31 pg (28-32); Mean Corpuscular Volume 94 fl (79-97); Platelet Count 166 K/mm3 (140-440); Red Blood Count 4.09 M/mm3 (3.65-5.03); Red Cell Distribution Width 13.3 % (13.2-15.2)
[2017-12-25 05:14] LABS: Alanine Aminotransferase 9 units/L (7-56); BUN/Creatinine Ratio 35; Blood Urea Nitrogen 14 mg/dL (7-17); Calcium 8.3 mg/dL (8.4-10.2); Hemolysis Index 14
[2017-12-25 05:49] LABS: Band Neutrophils # (Manual) 0.1 K/mm3; Basophils % (Manual) 0 % (0.0-1.8); Eosinophils % (Manual) 0 % (0.0-4.3); Monocytes % (Manual) 0 % (0.0-7.3); Platelet Estimate Consistent w Auto; Total Cells Counted 100
[2017-12-25] MEDS: DUONEB *Not for PRN Use IH SCH ×4 (08:11→19:56)
[2017-12-25] MEDS: HEPARIN SUB-Q SCH ×2 (10:08→22:11)
[2017-12-25] MEDS: LEVAQUIN 750MG/150ML 750 MG/150 ML BAG IV SCH (10:08)
[2017-12-25] MEDS: SODIUM CHLORIDE FLUSH SYRINGE 10 ML IV SCH ×2 (10:10→22:12)
[2017-12-25] MEDS ORDERED: ROBITUSSIN PO PRN (10:32)
--- NOTE | 2017-12-25 11:10 | Progress Note ---
Assessment and Plan - Acute on chronic respiratory failure Continue with supplemental oxygen, Duoneb, iv solumedrol and iv hydration - COPD with exercebation Duoneb, iv solumedrol Pulmacort and Brovana - GERD Pepcid - Hypokalemia corrected Hyperlipidemia On statin -DVT and GI prophylaxis with Lovenox and Pepcid Subjective Date of service: 12/25/17 Principal diagnosis: Acute on chroni crespiratory failure Interval history: Pt seen and examined. Still coughing with shortness of breath. discussed with nursing staff. No overnight event reported to me Objective - Constitutional Vitals: Vital Signs - 12hr 12/24/17 12/25/17 12/25/17 23:11 01:41 02:39 Temperature 98.7 F Pulse Rate Pulse Rate [ Posterior Bilateral Throughout] Respiratory 20 Rate Respiratory Rate [Posterior Bilateral Throughout] Blood Pressure 120/63 O2 Sat by Pulse 95 Oximetry 12/25/17 12/25/17 12/25/17 02:53 03:40 04:40 Temperature Pulse Rate 91 H Pulse Rate [ Posterior Bilateral Throughout] Respiratory 20 20 Rate Respiratory Rate [Posterior Bilateral Throughout] Blood Pressure O2 Sat by Pulse 97 Oximetry 12/25/17 12/25/17 12/25/17 05:14 07:30 07:35 Temperature 98.3 F Pulse Rate 92 H 82 Pulse Rate [ 73 Posterior Bilateral Throughout] Respiratory 20 Rate Respiratory 18 Rate [Posterior Bilateral Throughout] Blood Pressure 121/67 O2 Sat by Pulse 99 Oximetry 12/25/17 12/25/17 12/25/17 07:45 09:29 10:00 Temperature Pulse Rate 104 H Pulse Rate [ 74 Posterior Bilateral Throughout] Respiratory Rate Respiratory 18 Rate [Posterior Bilateral Throughout] Blood Pressure O2 Sat by Pulse 99 Oximetry General appearance: Present: no acute distress, well-nourished - EENT Eyes: PERRL, EOM intact - Neck Neck: supple, normal ROM - Respiratory Respiratory effort: normal Respiratory: bilateral: diminished, wheezing - Cardiovascular Rhythm: regular Heart Sounds: Present: S1 & S2. Absent: gallop, rub Extremities: pulses intact, No edema, normal color, Full ROM - Gastrointestinal General gastrointestinal: Present: soft, non-tender, non-distended, normal bowel sounds - Integumentary Integumentary: clear, warm, dry - Musculoskeletal Musculoskeletal: 1, strength equal bilaterally - Neurologic Neurologic: moves all extremities - Psychiatric Psychiatric: memory intact, appropriate mood/affect, intact judgment & insight - Labs CBC & Chem 7: 12/25/17 04:11 12/25/17 04:11 Labs: Abnormal lab results 12/24/17 12/24/17 12/24/17 Range/Units 12:24 12:24 13:16 RDW 13.1 L (13.2-15.2) % Lymph % (Auto) 10.9 L (13.4-35.0) % [place] % (Auto) 9.0 H (0.0-7.3) % Lymph # 1.0 L (1.2-5.4) K/mm3 Seg Neutrophils % 75.4 H (40.0-70.0) % Seg Neuts % (Manual) (40.0-70.0) % Lymphocytes % (Manual) (13.4-35.0) % Lymphocytes # (Manual) (1.2-5.4) K/mm3 Potassium 3.1 L (3.6-5.0) mmol/L Carbon Dioxide 34 H (22-30) mmol/L Creatinine 0.5 L (0.7-1.2) mg/dL Glucose 139 H (65-100) mg/dL Calcium 8.3 L (8.4-10.2) mg/dL CK-MB (CK-2) Rel Index 4.4 H (0-4) Total Protein (6.3-8.2) g/dL 12/25/17 12/25/17 Range/Units 04:11 04:11 RDW (13.2-15.2) % Lymph % (Auto) (13.4-35.0) % [place] % (Auto) (0.0-7.3) % Lymph # (1.2-5.4) K/mm3 Seg Neutrophils % (40.0-70.0) % Seg Neuts % (Manual) 91.0 H (40.0-70.0) % Lymphocytes % (Manual) 7.0 L (13.4-35.0) % Lymphocytes # (Manual) 0.4 L (1.2-5.4) K/mm3 Potassium (3.6-5.0) mmol/L Carbon Dioxide (22-30) mmol/L Creatinine 0.4 L (0.7-1.2) mg/dL Glucose 133 H (65-100) mg/dL Calcium 8.3 L (8.4-10.2) mg/dL CK-MB (CK-2) Rel Index (0-4) Total Protein 5.7 L (6.3-8.2) g/dL
[2017-12-25] MEDS: HYDROMET PO SCH ×2 (14:19→19:37)
[2017-12-25] MEDS: MORPHINE IV PRN (18:13)
--- NOTE | 2017-12-25 18:38 | Progress Note ---
Assessment and Plan 72-year-old female with history of COPD hypertension GERD osteoarthritis and peptic ulcer disease comes in for increasing shortness of breath of 3 days' duration associated with wheezing and cough. Patient is on oxygen at home. Patient has productive cough with yellow sputum. No fever no chills. Patient has been having running nose for the last 2 weeks. No chest pain. Family says that the patient has syncopal episode last night and Apparently she was brought into the doorway and collapse and was unresponsive for a few seconds. No chest pain no diaphoresis no palpitations. Patient has history of smoking 1/2 a pack x 20 years.. Stopped smoking 2 years ago. Denies alcohol or drug abuse.No known drug allergies. Worked in [employer]. Patient has 3 children. Patient has multiple surgeries, cholecystectomy,appendectomy, hysterectomy , breast surgery, abdominal surgery partial colectomy and lysis of adhesions. Patient presently resting on 2 litres O2. O2 saturation 97%.No acute respiratory distress at this time. Obtaining ABGs. 12/25/17 Patient still complaining wheezing and non productive cough.O2 saturation 92% on 2 litrs O2. - Patient Problems (1) COPD with acute exacerbation Current Visit: Yes Status: Acute Plan to address problem: O2 2 litres via nasal canula. Albuterol/atrovent aerosol treatments Continue I/V solumedrol Continue Levaquin Continue S/C Heparin. Robitussin AC for cough. (2) GERD (gastroesophageal reflux disease) Current Visit: Yes Status: Chronic Qualifiers: Esophagitis presence: without esophagitis Qualified Code(s): K21.9 - Gastro -esophageal reflux disease without esophagitis Plan to address problem: Management as per primary care. Patient having some nause. Patient is on Zofran. (3) HTN (hypertension) Current Visit: Yes Status: Chronic Qualifiers: Hypertension type: essential hypertension Qualified Code(s): I10 - Essential (primary) hypertension Plan to address problem: Management as per primary care. (4) Syncope Current Visit: Yes Status: Acute Plan to address problem: Work up and management as per primary care. (5) Hyperlipidemia Current Visit: Yes Status: Chronic Qualifiers: Hyperlipidemia type: mixed hyperlipidemia Qualified Code(s): E78.2 - Mixed hyperlipidemia Plan to address problem: Management as per primary care. Subjective Date of service: 12/25/17 Principal diagnosis: Acute on chroni crespiratory failure Interval history: Patient still complaining wheezing and non productive cough.O2 saturation 92% on 2 litrs O2. Objective Vital Signs - 12hr 12/25/17 12/25/17 12/25/17 07:30 07:35 07:45 Temperature 98.3 F Pulse Rate 82 Pulse Rate [ 73 74 Posterior Bilateral Throughout] Respiratory 20 Rate Respiratory 18 18 Rate [Posterior Bilateral Throughout] Blood Pressure 121/67 O2 Sat by Pulse 99 Oximetry 12/25/17 12/25/17 12/25/17 09:29 10:00 12:00 Temperature Pulse Rate 104 H Pulse Rate [ 75 Posterior Bilateral Throughout] Respiratory 18 Rate Respiratory 18 Rate [Posterior Bilateral Throughout] Blood Pressure O2 Sat by Pulse 99 Oximetry 12/25/17 12/25/17 12/25/17 12:10 13:24 15:15 Temperature 98.5 F Pulse Rate 92 H Pulse Rate [ 76 77 Posterior Bilateral Throughout] Respiratory 20 Rate Respiratory 18 18 Rate [Posterior Bilateral Throughout] Blood Pressure 136/72 O2 Sat by Pulse 90 Oximetry 12/25/17 15:27 Temperature Pulse Rate Pulse Rate [ 76 Posterior Bilateral Throughout] Respiratory Rate Respiratory Rate [Posterior Bilateral Throughout] Blood Pressure O2 Sat by Pulse Oximetry Constitutional: alert, appears uncomfortable Eyes: non-icteric ENT: oropharynx moist Neck: supple, no JVD Ascultation: Bilateral: diminished breath sounds, other (Prolonged expiratory phase.) Cardiovascular: regular rate and rhythm Gastrointestinal: normoactive bowel sounds, soft, non-tender Integumentary: normal Extremities: no cyanosis Neurologic: normal mental status, non-focal exam, pupils equal and round, CN II- XII normal Psychiatric: mood appropriate CBC and BMP: 12/25/17 04:11 12/25/17 04:11 ABG, PT/INR, D-dimer: ABG POC ABG pH 7.435 (7.35-7.45) 12/25/17 14:00 POC ABG pCO2 49.9 (35-45) H 12/25/17 14:00 POC ABG pO2 56 (80-105) L 12/25/17 14:00 POC ABG HCO3 33.5 12/25/17 14:00 POC ABG Total CO2 35 12/25/17 14:00 POC ABG O2 Sat 89 12/25/17 14:00 Abnormal lab findings: Abnormal Labs 12/24/17 12/24/17 12/24/17 12:24 12:24 13:16 RDW 13.1 L Lymph % (Auto) 10.9 L [place] % (Auto) 9.0 H Lymph # 1.0 L Seg Neutrophils % 75.4 H Seg Neuts % (Manual) Lymphocytes % (Manual) Lymphocytes # (Manual) POC ABG pCO2 POC ABG pO2 Potassium 3.1 L Carbon Dioxide 34 H Creatinine 0.5 L Glucose 139 H Calcium 8.3 L CK-MB (CK-2) Rel Index 4.4 H Total Protein 12/25/17 12/25/17 12/25/17 04:11 04:11 14:00 RDW Lymph % (Auto) [place] % (Auto) Lymph # Seg Neutrophils % Seg Neuts % (Manual) 91.0 H Lymphocytes % (Manual) 7.0 L Lymphocytes # (Manual) 0.4 L POC ABG pCO2 49.9 H POC ABG pO2 56 L Potassium Carbon Dioxide Creatinine 0.4 L Glucose 133 H Calcium 8.3 L CK-MB (CK-2) Rel Index Total Protein 5.7 L
[2017-12-25] MEDS: ROBITUSSIN AC PO PRN (23:50)
[2017-12-26] MEDS: ROBITUSSIN AC PO PRN ×2 (05:40→13:26)
[2017-12-26] MEDS: DUONEB *Not for PRN Use IH SCH ×4 (08:30→20:50)
[2017-12-26] MEDS: LEVAQUIN PO SCH (09:42)
[2017-12-26] MEDS: SODIUM CHLORIDE FLUSH SYRINGE 10 ML IV SCH ×2 (09:42→21:02)
[2017-12-26] MEDS: HEPARIN SUB-Q SCH ×2 (09:42→21:01)
--- NOTE | 2017-12-26 11:13 | Progress Note ---
Assessment and Plan - Acute on chronic respiratory failure Continue with supplemental oxygen, Duoneb, iv solumedrol and iv hydration - COPD with exercebation Duoneb, iv solumedrol Pulmacort and Brovana - GERD Pepcid - Hypokalemia corrected Hyperlipidemia On statin -DVT and GI prophylaxis with Lovenox and Pepcid Hospitalist Physical exam: GENERAL: Elderly white female lying on bed appeared to be in no discomfort. HEENT: Normocephalic. Atraumatic. No conjunctival congestion or icterus. Patient has moist mucous membranes. NECK: Supple. Trachea midline. CHEST/LUNGS: Severely Diminished breath sound auscultated bilaterally, breathing nonlabored. No wheezes crackles or rhonchi. HEART/CARDIOVASCULAR: Regular in rate and rhythm. S1 and S2 positive. ABDOMEN: Abdomen is soft, nontender. Patient has normal bowel sounds. SKIN: There is no rash. Warm and dry. NEURO: No focal motor deficit. Follows command. MUSCULOSKELETAL: No joint effusion or tenderness. EXTRIMITY: No edema, no cyanosis or clubbing. PSYCH: Cooperative. Subjective Date of service: 12/26/17 Principal diagnosis: Acute on chroni crespiratory failure Interval history: Patient seen and examined. Medical records and medication list reviewed. No acute event overnight noted by the RN. Patient denies any chest pain, but complains of shortness of breath with ambulation Discussed plan of care at bedside with patient. Objective - Constitutional Vitals: Vital Signs - 12hr 12/26/17 12/26/17 12/26/17 03:04 07:32 08:15 Temperature 98.2 F Pulse Rate 90 Pulse Rate [ 104 H Anterior Bilateral Throughout] Pulse Rate [ 92 H Apical] Respiratory 20 Rate Respiratory 24 Rate [Anterior Bilateral Throughout] Blood Pressure 107/86 O2 Sat by Pulse 96 Oximetry 12/26/17 12/26/17 08:30 08:32 Temperature Pulse Rate Pulse Rate [ 108 H Anterior Bilateral Throughout] Pulse Rate [ Apical] Respiratory Rate Respiratory 24 Rate [Anterior Bilateral Throughout] Blood Pressure O2 Sat by Pulse 90 Oximetry - Labs CBC & Chem 7: 12/25/17 04:11 12/25/17 04:11 Labs: Abnormal lab results 12/25/17 Range/Units 14:00 POC ABG pCO2 49.9 H (35-45) POC ABG pO2 56 L (80-105)
--- NOTE | 2017-12-26 16:48 | Progress Note ---
Subjective Date of service: 12/26/17 Principal diagnosis: Acute on chronic respiratory failure Objective Vital Signs - 12hr 12/26/17 12/26/17 12/26/17 07:32 08:15 08:30 Temperature 98.2 F Pulse Rate 90 Pulse Rate [ 104 H Anterior Bilateral Throughout] Respiratory 20 Rate Respiratory 24 Rate [Anterior Bilateral Throughout] Blood Pressure 107/86 O2 Sat by Pulse 96 90 Oximetry 12/26/17 12/26/17 12/26/17 08:32 12:03 12:09 Temperature Pulse Rate Pulse Rate [ 108 H 104 H Anterior Bilateral Throughout] Respiratory Rate Respiratory 24 24 Rate [Anterior Bilateral Throughout] Blood Pressure O2 Sat by Pulse 93 Oximetry 12/26/17 12/26/17 12:11 13:05 Temperature 97.8 F Pulse Rate 106 H Pulse Rate [ 104 H Anterior Bilateral Throughout] Respiratory 20 Rate Respiratory 104 H Rate [Anterior Bilateral Throughout] Blood Pressure 158/87 O2 Sat by Pulse 94 Oximetry Constitutional: alert, appears uncomfortable Eyes: non-icteric ENT: oropharynx moist Neck: supple, no JVD Ascultation: Bilateral: diminished breath sounds, other (Prolonged expiratory phase.) Cardiovascular: regular rate and rhythm Gastrointestinal: normoactive bowel sounds, soft, non-tender Integumentary: normal Extremities: no cyanosis Neurologic: normal mental status, non-focal exam, pupils equal and round, CN II- XII normal Psychiatric: mood appropriate CBC and BMP: 12/25/17 04:11 12/25/17 04:11 ABG, PT/INR, D-dimer: ABG POC ABG pH 7.435 (7.35-7.45) 12/25/17 14:00 POC ABG pCO2 49.9 (35-45) H 12/25/17 14:00 POC ABG pO2 56 (80-105) L 12/25/17 14:00 POC ABG HCO3 33.5 12/25/17 14:00 POC ABG Total CO2 35 12/25/17 14:00 POC ABG O2 Sat 89 12/25/17 14:00 Abnormal lab findings: Abnormal Labs 12/24/17 12/24/17 12/24/17 12:24 12:24 13:16 RDW 13.1 L Lymph % (Auto) 10.9 L [place] % (Auto) 9.0 H Lymph # 1.0 L Seg Neutrophils % 75.4 H Seg Neuts % (Manual) Lymphocytes % (Manual) Lymphocytes # (Manual) POC ABG pCO2 POC ABG pO2 Potassium 3.1 L Carbon Dioxide 34 H Creatinine 0.5 L Glucose 139 H Calcium 8.3 L CK-MB (CK-2) Rel Index 4.4 H Total Protein 12/25/17 12/25/17 12/25/17 04:11 04:11 14:00 RDW Lymph % (Auto) [place] % (Auto) Lymph # Seg Neutrophils % Seg Neuts % (Manual) 91.0 H Lymphocytes % (Manual) 7.0 L Lymphocytes # (Manual) 0.4 L POC ABG pCO2 49.9 H POC ABG pO2 56 L Potassium Carbon Dioxide Creatinine 0.4 L Glucose 133 H Calcium 8.3 L CK-MB (CK-2) Rel Index Total Protein 5.7 L
--- NOTE | 2017-12-26 18:30 | Event Note ---
Date: 12/26/17 Patient was seen and examined. Patient is known to Dr. Mcnally. Notified his group. Will sign off. Family updated at the bedside
[2017-12-26] MEDS: PERCOCET 5/325 PO PRN (21:02)
[2017-12-27] MEDS: AMBIEN PO PRN (00:13)
[2017-12-27] MEDS: ROBITUSSIN AC PO PRN ×3 (00:13→13:42)
[2017-12-27] MEDS: PERCOCET 5/325 PO PRN (05:12)
[2017-12-27] MEDS: DUONEB *Not for PRN Use IH SCH ×4 (07:41→21:31)
[2017-12-27] MEDS: SODIUM CHLORIDE FLUSH SYRINGE 10 ML IV SCH ×2 (09:26→21:37)
[2017-12-27] MEDS: HEPARIN SUB-Q SCH ×2 (09:26→21:37)
--- NOTE | 2017-12-27 15:06 | Progress Note ---
Assessment and Plan - Acute on chronic respiratory failure Continue with supplemental oxygen, Duoneb, iv solumedrol and iv hydration - COPD with exercebation Duoneb, iv solumedrol Pulmacort and Brovana - GERD Pepcid - Hypokalemia corrected Hyperlipidemia On statin -DVT and GI prophylaxis with Lovenox and Pepcid Hospitalist Physical exam: GENERAL: Elderly white female lying on bed appeared to be in no discomfort. HEENT: Normocephalic. Atraumatic. No conjunctival congestion or icterus. Patient has moist mucous membranes. NECK: Supple. Trachea midline. CHEST/LUNGS: Severely Diminished breath sound auscultated bilaterally, breathing nonlabored. No wheezes crackles or rhonchi. HEART/CARDIOVASCULAR: Regular in rate and rhythm. S1 and S2 positive. ABDOMEN: Abdomen is soft, nontender. Patient has normal bowel sounds. SKIN: There is no rash. Warm and dry. NEURO: No focal motor deficit. Follows command. MUSCULOSKELETAL: No joint effusion or tenderness. EXTRIMITY: No edema, no cyanosis or clubbing. PSYCH: Cooperative. Subjective Date of service: 12/27/17 Principal diagnosis: Acute on chroni crespiratory failure Interval history: Patient seen and examined. Medical records and medication list reviewed. No acute event overnight noted by the RN. Patient denies any chest pain, but complains of shortness of breath with ambulation Plan to do ambulation test today for 24/7 home o2 requirement Discussed plan of care at bedside with patient. Objective - Constitutional Vitals: Vital Signs - 12hr 12/27/17 12/27/17 12/27/17 07:53 08:00 08:10 Temperature 98.0 F Pulse Rate 107 H Pulse Rate [ 107 H 106 H Anterior Bilateral Throughout] Pulse Rate [ Apical] Respiratory 20 Rate Respiratory 18 18 Rate [Anterior Bilateral Throughout] Blood Pressure 156/87 O2 Sat by Pulse 96 Oximetry 12/27/17 12/27/17 10:00 14:44 Temperature 98.0 F Pulse Rate 95 H Pulse Rate [ Anterior Bilateral Throughout] Pulse Rate [ 92 H Apical] Respiratory 20 20 Rate Respiratory Rate [Anterior Bilateral Throughout] Blood Pressure 125/69 O2 Sat by Pulse 97 96 Oximetry - Labs CBC & Chem 7: 12/25/17 04:11 12/25/17 04:11
--- NOTE | 2017-12-27 15:35 | Consultation ---
History of Present Illness Consult date: 12/27/17 Reason for consult: dyspnea, cough, COPD History of present illness: Called to evaluate the case of a 72-year-old female with prior history of COPD, admitted to the hospital due to persistent dyspnea and wheezing. The patient reports cough, wheezing, dyspnea upon exertion for the past 3-4 days. Also some nasal congestion. She denies fever or chills. Follow-up with Dr. Mcnally using at this time oxygen as needed at nighttime plus albuterol inhaler. No other medications reported. She is a former smoker but claims that she quit smoking 2 years. No other chest complaints. She denies fever, chills, hemoptysis, chest pain. Have to see him follow from pulmonary standpoint Past History Past Medical History: arthritis, COPD, GERD, hypertension, hyperlipidemia Past Surgical History: hysterectomy Social history: denies: smoking (Stopped smoking 2 years ago.), alcohol abuse, prescription drug abuse Medications and Allergies Allergies Allergy/AdvReac Type Severity Reaction Status Date / Time No Known Allergies Allergy Verified 02/04/16 12:01 Home Medications Medication Instructions Recorded Confirmed Last Taken Type Amlodipine Besylate 10 mg PO QAM 07/29/16 12/24/17 12/24/17 History LORazepam 2 mg PO BID 07/29/16 12/24/17 12/24/17 History Simvastatin 20 mg PO QHS 07/29/16 12/24/17 12/24/17 History ALBUTEROL NEB's [Proventil 0.083% 2.5 mg IH QID 07/26/17 12/24/17 12/24/17 History NEBS] Benzonatate [Tessalon Perles] 100 mg PO Q8HR PRN 07/26/17 12/24/17 12/24/17 History Oxycodone HCl/Acetaminophen 1 each PO Q6HR PRN 07/26/17 12/24/17 12/24/17 22:32 History [Percocet 7.5/325 mg] Potassium Gluconate 500 mg PO QDAY 07/26/17 12/24/17 12/24/17 History ALBUTEROL Inhaler [ProAir HFA 1 puff IH QID PRN 30 Days inha 07/29/17 12/24/17 12/24/17 Rx Inhaler] Aspirin [Lo-Dose Aspirin EC] 81 mg PO DAILY 11/15/17 12/24/17 12/24/17 History Loratadine [Claritin] 10 mg PO DAILY 12/24/17 12/24/17 12/24/17 History Methimazole [Tapazole] 5 mg PO QDAY 12/24/17 12/24/17 12/24/17 History Pantoprazole [Protonix TAB] 40 mg PO BID 12/24/17 12/24/17 12/24/17 History Active Meds: Active Medications Acetaminophen (Tylenol) 650 mg PO Q4H PRN PRN Reason: Pain MILD(1-3)/Fever >100.5/GARNER Albuterol/Ipratropium (Duoneb *Not For Prn Use*) 1 ampul IH QIDRT [facility] Last Admin: 12/27/17 14:21 Dose: 1 ampul Heparin Sodium (Porcine) (Heparin) 5,000 unit SUB-Q Q12HR [facility] Last Admin: 12/27/17 09:26 Dose: 5,000 unit Levofloxacin (Levaquin) 750 mg PO Q48HR [facility] Last Admin: 12/26/17 09:42 Dose: 750 mg Methylprednisolone Sodium Succinate (Solu-Medrol) 125 mg IV Q8HR [facility] Last Admin: 12/27/17 13:43 Dose: 125 mg Morphine Sulfate (Morphine) 2 mg IV Q4H PRN PRN Reason: Pain, Moderate (4-6) Last Admin: 12/25/17 18:13 Dose: 2 mg Ondansetron HCl (Zofran) 4 mg IV Q8H PRN PRN Reason: Nausea And Vomiting Last Admin: 12/25/17 18:04 Dose: 4 mg Oxycodone/Acetaminophen (Percocet 5/325) 1 tab PO Q6H PRN PRN Reason: Pain, Moderate (4-6) Last Admin: 12/27/17 05:12 Dose: 1 tab Pseudoephedrine/Acetam/Chlorphenir (Robitussin Ac) 10 ml PO Q6H PRN PRN Reason: Cough Last Admin: 12/27/17 13:42 Dose: 10 ml Sodium Chloride (Sodium Chloride Flush Syringe 10 Ml) 10 ml IV BID [facility] Last Admin: 12/27/17 09:26 Dose: 10 ml Sodium Chloride (Sodium Chloride Flush Syringe 10 Ml) 10 ml IV PRN PRN PRN Reason: LINE FLUSH Zolpidem Tartrate (Ambien) 5 mg PO QHS PRN PRN Reason: Insomnia Last Admin: 12/27/17 00:13 Dose: 5 mg Physical Examination Vital signs: Vital Signs Temp Pulse Resp BP Pulse Ox 97.8 F 102 H 22 117/55 98 12/24/17 11:56 12/24/17 11:56 12/24/17 11:56 12/24/17 11:56 12/24/17 11:56 General appearance: no acute distress, alert Eyes: non-icteric ENT: oropharynx moist Neck: supple, no JVD Ascultation: Bilateral: diminished breath sounds, wheezes, rales Cardiovascular: regular rate and rhythm Gastrointestinal: normoactive bowel sounds Integumentary: normal Extremities: no cyanosis, no edema, no ischemia or petechiae Musculoskeletal: no deformities normal mental status, non-focal exam, pupils equal and round, CN II-XII normal, motor strength normal and Results - Laboratory Findings CBC and BMP: 12/25/17 04:11 12/25/17 04:11 ABG POC ABG pH 7.435 (7.35-7.45) 12/25/17 14:00 POC ABG pCO2 49.9 (35-45) H 12/25/17 14:00 POC ABG pO2 56 (80-105) L 12/25/17 14:00 POC ABG HCO3 33.5 12/25/17 14:00 POC ABG Total CO2 35 12/25/17 14:00 POC ABG O2 Sat 89 12/25/17 14:00 Abnormal lab findings: Abnormal Labs 12/24/17 12/24/17 12/24/17 12:24 12:24 13:16 RDW 13.1 L Lymph % (Auto) 10.9 L [place] % (Auto) 9.0 H Lymph # 1.0 L Seg Neutrophils % 75.4 H Seg Neuts % (Manual) Lymphocytes % (Manual) Lymphocytes # (Manual) POC ABG pCO2 POC ABG pO2 Potassium 3.1 L Carbon Dioxide 34 H Creatinine 0.5 L Glucose 139 H Calcium 8.3 L CK-MB (CK-2) Rel Index 4.4 H Total Protein 12/25/17 12/25/17 12/25/17 04:11 04:11 14:00 RDW Lymph % (Auto) [place] % (Auto) Lymph # Seg Neutrophils % Seg Neuts % (Manual) 91.0 H Lymphocytes % (Manual) 7.0 L Lymphocytes # (Manual) 0.4 L POC ABG pCO2 49.9 H POC ABG pO2 56 L Potassium Carbon Dioxide Creatinine 0.4 L Glucose 133 H Calcium 8.3 L CK-MB (CK-2) Rel Index Total Protein 5.7 L - Diagnostic Findings Chest x-ray: report reviewed Assessment and Plan COPD with exacerbation Asthmatic bronchitis Former smoker Chronic pain. On narcotics Recommendations Albuterol 2.5 milligram nebulizations every 4-6 hours with or without ipratropium Solu-Medrol 40-60 mg IV every 6-8 hours Oxygen support via nasal cannula or mask to maintain oximetry over 92% Agree with antibiotics Close monitoring of oral narcotics avoid hypercapnia and oversedation DVT prophylaxis Thanks. Will follow-up. Discussed with patient in detail. All questions answered.
[2017-12-28] MEDS: PERCOCET 5/325 PO PRN (03:10)
[2017-12-28] MEDS: LEVAQUIN PO SCH (10:17)
[2017-12-28] MEDS: HEPARIN SUB-Q SCH ×2 (10:17→21:13)
[2017-12-28] MEDS: DUONEB *Not for PRN Use IH SCH ×5 (11:25→23:52)
--- NOTE | 2017-12-28 13:04 | Progress Note ---
Assessment and Plan - Acute on chronic hypoxic and hypercapnic respiratory failure Continue with supplemental oxygen, Duoneb, iv solumedrol and iv hydration - COPD with exercebation Duoneb, iv solumedrol Pulmacort and Brovana - GERD Pepcid - Hypokalemia corrected Hyperlipidemia On statin Syncope - CT head negative, will order 2d echo and carotid doppler -DVT and GI prophylaxis with Lovenox and Pepcid Hospitalist Physical exam: GENERAL: Elderly white female lying on bed appeared to be in no discomfort. HEENT: Normocephalic. Atraumatic. No conjunctival congestion or icterus. Patient has moist mucous membranes. NECK: Supple. Trachea midline. CHEST/LUNGS: Severely Diminished breath sound auscultated bilaterally, breathing nonlabored. No wheezes crackles or rhonchi. HEART/CARDIOVASCULAR: Regular in rate and rhythm. S1 and S2 positive. ABDOMEN: Abdomen is soft, nontender. Patient has normal bowel sounds. SKIN: There is no rash. Warm and dry. NEURO: No focal motor deficit. Follows command. MUSCULOSKELETAL: No joint effusion or tenderness. EXTRIMITY: No edema, no cyanosis or clubbing. PSYCH: Cooperative. Subjective Date of service: 12/28/17 Principal diagnosis: Acute on chroni crespiratory failure Interval history: Patient seen and examined. Medical records and medication list reviewed. No acute event overnight noted by the RN. Patient denies any chest pain, but complains of shortness of breath with ambulation pt will need 24/7 home O2, Discussed with CM Discussed plan of care at bedside with patient. Objective - Constitutional Vitals: Vital Signs - 12hr 12/28/17 12/28/17 12/28/17 02:44 03:10 07:33 Temperature 97.8 F 98.5 F Pulse Rate 89 82 Respiratory 20 18 18 Rate Blood Pressure 139/82 154/70 O2 Sat by Pulse 96 97 Oximetry 12/28/17 10:00 Temperature Pulse Rate 82 Respiratory Rate Blood Pressure O2 Sat by Pulse Oximetry - Labs CBC & Chem 7: 12/25/17 04:11 12/25/17 04:11
--- NOTE | 2017-12-28 13:16 | Progress Note ---
Assessment and Plan COPD with exacerbation. Slowly improving Asthmatic bronchitis Former smoker Chronic pain. On narcotics Recommendations Continue nebulizer therapy Continue IV steroids Evaluate for need for portable oxygen support, walking oximetry Complete antibiotics Will need combination therapy of discharge. Either Anoro or Trelogy inhalers once a day, will be reasonable options Discussed with patient in detail. All questions answered. Subjective Date of service: 12/28/17 Principal diagnosis: Acute on chroni crespiratory failure Interval history: States that she feels better and wants to leave. At the bedside, still noted to be wheezing Objective Vital Signs - 12hr 12/28/17 12/28/17 12/28/17 02:44 03:10 07:33 Temperature 97.8 F 98.5 F Pulse Rate 89 82 Respiratory 20 18 18 Rate Blood Pressure 139/82 154/70 O2 Sat by Pulse 96 97 Oximetry 12/28/17 10:00 Temperature Pulse Rate 82 Respiratory Rate Blood Pressure O2 Sat by Pulse Oximetry Constitutional: no acute distress, alert Eyes: non-icteric ENT: oropharynx moist Neck: supple, no JVD Ascultation: Bilateral: wheezes (both the neck and chest), other (Prolonged expiratory phase.) Cardiovascular: regular rate and rhythm Gastrointestinal: normoactive bowel sounds Integumentary: normal Extremities: no cyanosis, no edema, no ischemia or petechiae Neurologic: normal mental status, non-focal exam, pupils equal and round, CN II- XII normal, motor strength normal and Psychiatric: mood appropriate CBC and BMP: 12/25/17 04:11 12/25/17 04:11 ABG, PT/INR, D-dimer: ABG POC ABG pH 7.435 (7.35-7.45) 12/25/17 14:00 POC ABG pCO2 49.9 (35-45) H 12/25/17 14:00 POC ABG pO2 56 (80-105) L 12/25/17 14:00 POC ABG HCO3 33.5 12/25/17 14:00 POC ABG Total CO2 35 12/25/17 14:00 POC ABG O2 Sat 89 12/25/17 14:00 Abnormal lab findings: Abnormal Labs 12/24/17 12/24/17 12/24/17 12:24 12:24 13:16 RDW 13.1 L Lymph % (Auto) 10.9 L [place] % (Auto) 9.0 H Lymph # 1.0 L Seg Neutrophils % 75.4 H Seg Neuts % (Manual) Lymphocytes % (Manual) Lymphocytes # (Manual) POC ABG pCO2 POC ABG pO2 Potassium 3.1 L Carbon Dioxide 34 H Creatinine 0.5 L Glucose 139 H Calcium 8.3 L CK-MB (CK-2) Rel Index 4.4 H Total Protein 12/25/17 12/25/17 12/25/17 04:11 04:11 14:00 RDW Lymph % (Auto) [place] % (Auto) Lymph # Seg Neutrophils % Seg Neuts % (Manual) 91.0 H Lymphocytes % (Manual) 7.0 L Lymphocytes # (Manual) 0.4 L POC ABG pCO2 49.9 H POC ABG pO2 56 L Potassium Carbon Dioxide Creatinine 0.4 L Glucose 133 H Calcium 8.3 L CK-MB (CK-2) Rel Index Total Protein 5.7 L
[2017-12-28] MEDS: SODIUM CHLORIDE FLUSH SYRINGE 10 ML IV SCH ×2 (15:46→21:12)
[2017-12-28] MEDS: MORPHINE IV PRN ×2 (15:49→21:13)
[2017-12-28] MEDS: BROVANA NEBU IH SCH ×2 (18:25→21:10)
[2017-12-28] MEDS: PULMICORT IH SCH ×2 (18:25→21:11)
[2017-12-28] MEDS ORDERED: ATIVAN PO PRN (18:54)
[2017-12-28] MEDS ORDERED: PULMICORT 1 MG, BROVANA NEBU 15 MCG IH SCH (20:00)
[2017-12-28] MEDS: ROBITUSSIN AC PO PRN (21:12)
[2017-12-28] MEDS: NORVASC PO SCH (21:13)
[2017-12-28] MEDS: AMBIEN PO PRN (21:13)
[2017-12-29] MEDS: MORPHINE IV PRN (02:08)
[2017-12-29] MEDS: SODIUM CHLORIDE FLUSH SYRINGE 10 ML IV PRN ×2 (02:09→05:10)
[2017-12-29] MEDS: PERCOCET 5/325 PO PRN (05:09)
[2017-12-29] MEDS: ROBITUSSIN AC PO PRN (05:09)
[2017-12-29] MEDS: PULMICORT IH SCH (07:36)
[2017-12-29] MEDS: BROVANA NEBU IH SCH (07:46)
[2017-12-29] MEDS: DUONEB *Not for PRN Use IH SCH ×2 (07:47→13:09)
[2017-12-29 08:13] VITALS: BP 171/94
[2017-12-29] MEDS ORDERED: LEVAQUIN PO SCH (10:00)
--- NOTE | 2017-12-29 12:00 | Progress Note ---
Assessment and Plan COPD with exacerbation. Slowly improving Asthmatic bronchitis Former smoker Chronic pain. On narcotics Recommendations Complete 7 days on antibiotics Ambulate patient and monitor oximetry. Add portable oxygen 2 L/m if oximetry below 89% on room air. Update influenza and pneumonia vaccination, if not completed already. Candidate for pulmonary rehabilitation, after outpatient reevaluation Recommend that she be transitioned to his there are no Anoro one inhalation every morning or Trelogy 1 inhalation every morning Outpatient pulmonary evaluation, PFT workup for COPD severity stratification . Will schedule her for follow-up with Dr. Mcnally in 2-3 weeks, if discharge Nutritional support, weight reduction diet. BMI under 30 and avoid malnutrition , BMI under 19 Discussed with patient in detail. All questions answered. Subjective Date of service: 12/29/17 Principal diagnosis: Acute on chroni crespiratory failure Interval history: Feels much better. Expects to be discharged today. No chest pain or coughing Objective Vital Signs - 12hr 12/29/17 12/29/17 12/29/17 00:11 03:00 07:36 Temperature 98.5 F Pulse Rate 93 H Pulse Rate [ 93 H 89 Anterior Bilateral Throughout] Respiratory 20 Rate Respiratory 18 18 Rate [Anterior Bilateral Throughout] Blood Pressure 149/96 O2 Sat by Pulse 96 Oximetry 12/29/17 12/29/17 12/29/17 07:37 07:38 07:54 Temperature 98.0 F Pulse Rate 87 Pulse Rate [ 87 Anterior Bilateral Throughout] Respiratory 20 Rate Respiratory 17 Rate [Anterior Bilateral Throughout] Blood Pressure 171/94 O2 Sat by Pulse 96 91 Oximetry Constitutional: no acute distress, alert Eyes: non-icteric ENT: oropharynx moist Neck: supple, no JVD Ascultation: Bilateral: clear, wheezes (minimal, sporadic) Cardiovascular: regular rate and rhythm Gastrointestinal: normoactive bowel sounds Integumentary: normal Extremities: no cyanosis, no edema, no ischemia or petechiae Neurologic: normal mental status, non-focal exam, pupils equal and round, CN II- XII normal, motor strength normal and Psychiatric: mood appropriate CBC and BMP: 12/25/17 04:11 12/25/17 04:11 ABG, PT/INR, D-dimer: ABG POC ABG pH 7.435 (7.35-7.45) 12/25/17 14:00 POC ABG pCO2 49.9 (35-45) H 12/25/17 14:00 POC ABG pO2 56 (80-105) L 12/25/17 14:00 POC ABG HCO3 33.5 12/25/17 14:00 POC ABG Total CO2 35 12/25/17 14:00 POC ABG O2 Sat 89 12/25/17 14:00 Abnormal lab findings: Abnormal Labs 12/24/17 12/24/17 12/24/17 12:24 12:24 13:16 RDW 13.1 L Lymph % (Auto) 10.9 L Cass % (Auto) 9.0 H Lymph # 1.0 L Seg Neutrophils % 75.4 H Seg Neuts % (Manual) Lymphocytes % (Manual) Lymphocytes # (Manual) POC ABG pCO2 POC ABG pO2 Potassium 3.1 L Carbon Dioxide 34 H Creatinine 0.5 L Glucose 139 H Calcium 8.3 L CK-MB (CK-2) Rel Index 4.4 H Total Protein 12/25/17 12/25/17 12/25/17 04:11 04:11 14:00 RDW Lymph % (Auto) Cass % (Auto) Lymph # Seg Neutrophils % Seg Neuts % (Manual) 91.0 H Lymphocytes % (Manual) 7.0 L Lymphocytes # (Manual) 0.4 L POC ABG pCO2 49.9 H POC ABG pO2 56 L Potassium Carbon Dioxide Creatinine 0.4 L Glucose 133 H Calcium 8.3 L CK-MB (CK-2) Rel Index Total Protein 5.7 L
[2017-12-29] MEDS: HEPARIN SUB-Q SCH (12:14)
[2017-12-29] MEDS: NORVASC PO SCH (12:14)
[2017-12-29] MEDS: SODIUM CHLORIDE FLUSH SYRINGE 10 ML IV SCH (12:17)
--- NOTE | 2017-12-29 13:47 | Discharge Summary ---
Providers - Providers Date of Admission: 12/24/17 16:44 Date of discharge: 12/29/17 Attending physician: MORENITA REEVES 12/24/17 Consult to Case Management [CONS] Routine Services Needed at Discharge: Home Health Services Notified:: claudia 12/24/17 19:30 Consult to Physician [CONS] Routine Comment: left mess. on cell/kat Consulting Provider: PATRICA ODOM Physician Instructions: Reason For Exam: COPD exacerbation Primary care physician: W[employer]HOU[employer] P[employer]ER Hospitalization Condition: Fair Hospital course: Discharge diagnosis: - Acute on chronic hypoxic and hypercapnic respiratory failure Continue with supplemental oxygen, Duoneb, iv solumedrol and iv hydration - COPD with exercebation Duoneb, iv solumedrol Pulmacort and Brovana - GERD Pepcid - Hypokalemia corrected Hyperlipidemia On statin Syncope - CT head negative, ordered 2d echo and carotid doppler -DVT and GI prophylaxis with Lovenox and Pepcid Hospitalist Physical exam: GENERAL: Elderly white female lying on bed appeared to be in no discomfort. HEENT: Normocephalic. Atraumatic. No conjunctival congestion or icterus. Patient has moist mucous membranes. NECK: Supple. Trachea midline. CHEST/LUNGS: Severely Diminished breath sound auscultated bilaterally, breathing nonlabored. No wheezes crackles or rhonchi. HEART/CARDIOVASCULAR: Regular in rate and rhythm. S1 and S2 positive. ABDOMEN: Abdomen is soft, nontender. Patient has normal bowel sounds. SKIN: There is no rash. Warm and dry. NEURO: No focal motor deficit. Follows command. MUSCULOSKELETAL: No joint effusion or tenderness. EXTRIMITY: No edema, no cyanosis or clubbing. PSYCH: Cooperative. Disposition: [id number] HOME UNDER HOME [facility] Time spent for discharge: 32 minutes Core Measure Documentation - Palliative Care Palliative Care/ Comfort Measures: Not Applicable - Core Measures Any of the following diagnoses?: none Exam - Constitutional Vitals: Temp Pulse Resp BP Pulse Ox 98.0 F 87 20 171/94 91 12/29/17 07:54 12/29/17 07:54 12/29/17 07:54 12/29/17 07:54 12/29/17 07:54 Plan Activity: advance as tolerated Weight Bearing Status: Non-Weight Bearing Diet: regular Additional Instructions: f/u with Dr Lipsett in 2 weeks Follow up with: PRIMARY CARE, [Primary Care Provider] - 3-5 Days Prescriptions: ALBUTEROL Inhaler [ProAir HFA Inhaler] 1 puff IH QID PRN 30 Days inha PRN Reason: Shortness Of Breath ALBUTEROL NEB's [Proventil 0.083% NEBS] 2.5 mg IH QID PRN 30 Days #30 nebu PRN Reason: Shortness Of Breath amLODIPine [Norvasc] 5 mg PO QDAY #30 tablet Aspirin [Lo-Dose Aspirin EC] 81 mg PO DAILY #30 tablet. Benzonatate [Alexandre Long] 100 mg PO Q8HR PRN #30 capsule PRN Reason: Cough Fluticasone/Salmeterol [Advair 250-50 Diskus] 1 each IH BID 30 Days blst.w.dev Levofloxacin [Levaquin TAB] 750 mg PO Q24HR #4 tablet Loratadine [Claritin] 10 mg PO DAILY #14 tablet Methimazole [Tapazole] 5 mg PO QDAY #30 tablet Pantoprazole [Protonix TAB] 40 mg PO QDAY #30 tablet
== END 2017-12-29 15:14 | disposition home health service (06) | DRG 189 ==
LOC: ED 11:46 → 2B-ACE 16:44
PROVIDERS: ADMIT Internal Medicine; ATTEND Internal Medicine
PROC: 4A03XR1 Measurement of Arterial Saturation, Peripheral, External Approach (ICD-10-PCS; principal; 2017-12-25)
DX: J96.21 Acute and chronic respiratory failure with hypoxia (principal); J44.1 Chronic obstructive pulmonary disease with (acute) exacerbation; J44.0 Chronic obstructive pulmonary disease with (acute) lower respiratory infection; Z99.81 Dependence on supplemental oxygen; I10 Essential (primary) hypertension; K21.9 Gastro-esophageal reflux disease without esophagitis; E78.5 Hyperlipidemia, unspecified; G89.29 Other chronic pain; J96.22 Acute and chronic respiratory failure with hypercapnia; R55 Syncope and collapse; E87.6 Hypokalemia; M19.90 Unspecified osteoarthritis, unspecified site; E03.9 Hypothyroidism, unspecified; Z90.710 Acquired absence of both cervix and uterus; Z87.891 Personal history of nicotine dependence; Z79.899 Other long term (current) drug therapy; Z90.49 Acquired absence of other specified parts of digestive tract; Z87.11 Personal history of peptic ulcer disease; J20.9 Acute bronchitis, unspecified
CPT/HCPCS: 36415; 36600; 70450; 71045; 80048; 80053; 82550; 82553; 82803; 83036; 84484; 85007; 85025; 93005; 93010; 93306; 93880; 94640; 94760; 96365; 96375; 99285; J1644; J1956; J2270; J2405; J2930; J3475